=== PATIENT | male | born 1970 | race Caucasian/White ===

== ENCOUNTER → 2020-05-03 08:12 | Outpatient (CLI) | payer BC, SELFPAY ==
[2020-05-03 10:25] LABS: AST(SGOT) 84 U/L (15-37); Alanine Aminotransfer ALT/SGPT 186 U/L (16-61); Alkaline Phosphatase 70 U/L (45-117); Anion Gap 6 (5-15); BUN 13 mg/dL (7-18); BUN/Creat Ratio 14.6 RATIO (10-20); Calcium,Total 9.3 mg/dL (8.5-10.1); Chloride 106 mmol/L (98-107); Cholesterol 209 mg/dL (200); Creatinine, Serum 0.89 mg/dL (0.70-1.30); EST Glomerular Filtration Rate 96 mL/min (>60); Est Glom Filt Rate - Afr Amer 116 mL/min (>60); Globulin 4.1 g/dL (2.2-4.2); Glucose 109 mg/dL (74-106); High Density Lipoprotein 48 mg/dL; Potassium 4.1 mmol/L (3.5-5.1); Protein, Total 8.1 g/dL (6.4-8.2); Sodium Level 138 mmol/L (136-145); Triglycerides 149 mg/dL; Very Low Density Lipoprotein 30 mg/dL (5-40)
== END ==
PROVIDERS: PCP Nurse Practitioner Family; Referring Provider Nurse Practitioner Family; Visit Provider Nurse Practitioner Family
DX: E78.5 Hyperlipidemia, unspecified (principal)
CPT/HCPCS: 36415; 80053; 80061

== ENCOUNTER → 2020-12-28 07:26 | Outpatient (CLI) | payer BC, SELFPAY ==
[2020-12-28 10:52] LABS: ALB/GLOB Ratio 0.9 RATIO (0.9-2.4); AST(SGOT) 29 U/L (15-37); Alanine Aminotransfer ALT/SGPT 67 U/L (16-61); Albumin, Serum 3.9 g/dL (3.2-5.0); Alkaline Phosphatase 67 U/L (45-117); Anion Gap 4 (5-15); BUN 16 mg/dL (7-18); BUN/Creat Ratio 16.8 RATIO (10-20); Calcium,Total 9.9 mg/dL (8.5-10.1); Chloride 104 mmol/L (98-107); Creatinine, Serum 0.95 mg/dL (0.70-1.30); EST Glomerular Filtration Rate 89 mL/min (>60); Est Glom Filt Rate - Afr Amer 107 mL/min (>60); Globulin 4.5 g/dL (2.2-4.2); Glucose 112 mg/dL (74-106); Potassium 3.9 mmol/L (3.5-5.1); Protein, Total 8.4 g/dL (6.4-8.2); Sodium Level 136 mmol/L (136-145)
== END ==
PROVIDERS: PCP Nurse Practitioner Family; Referring Provider Nurse Practitioner Family; Visit Provider Nurse Practitioner Family
DX: R79.89 Other specified abnormal findings of blood chemistry (principal); K76.0 Fatty (change of) liver, not elsewhere classified; R74.8 Abnormal levels of other serum enzymes; Z72.89 Other problems related to lifestyle
CPT/HCPCS: 36415; 80053

== ENCOUNTER → 2021-05-01 07:14 | Outpatient (CLI) | payer BC, SELFPAY ==
[2021-05-01 09:54] LABS: Hematocrit 45.2 % (40-54); Hemoglobin 14.9 g/dL (13.0-16.5); Mean Corpuscular Hgb 29.9 pg (27.0-32.0); Mean Corpuscular Volume 90.6 fL (80-94); Mean Platelet Vol. 9.2 fl (6.2-12.0); Platelet Count 305 K/mm3 (150-450); RBC Distribution Width CV 12.8 % (11.6-14.6); RBC Distribution Width SD 41.9 fl (35.1-43.9); Red Blood Count 4.99 M/mm3 (4.6-6.2); White Blood Count 9.5 K/mm3 (4.4-11.0)
[2021-05-01 10:13] LABS: ALB/GLOB Ratio 0.8 RATIO (0.9-2.4); AST(SGOT) 41 U/L (15-37); Alanine Aminotransfer ALT/SGPT 89 U/L (16-61); Albumin, Serum 3.8 g/dL (3.2-5.0); Alkaline Phosphatase 75 U/L (45-117); Anion Gap 5 (5-15); BUN 15 mg/dL (7-18); BUN/Creat Ratio 16.4 RATIO (10-20); Calcium,Total 9.6 mg/dL (8.5-10.1); Chloride 105 mmol/L (98-107); Cholesterol 166 mg/dL (200); Creatinine, Serum 0.92 mg/dL (0.70-1.30); EST Glomerular Filtration Rate 93 mL/min (>60); Est Glom Filt Rate - Afr Amer 112 mL/min (>60); Globulin 4.5 g/dL (2.2-4.2); Glucose 102 mg/dL (74-106); High Density Lipoprotein 43 mg/dL; PSA,Total - Annual Screen 0.41 ng/mL (0.00-4.00); Protein, Total 8.3 g/dL (6.4-8.2); Sodium Level 138 mmol/L (136-145); Triglycerides 112 mg/dL; Very Low Density Lipoprotein 22 mg/dL (5-40)
== END ==
PROVIDERS: PCP Nurse Practitioner Family; Referring Provider Nurse Practitioner Family; Visit Provider Nurse Practitioner Family
DX: I10 Essential (primary) hypertension (principal); E78.5 Hyperlipidemia, unspecified; R73.01 Impaired fasting glucose; R79.89 Other specified abnormal findings of blood chemistry; Z12.5 Encounter for screening for malignant neoplasm of prostate
CPT/HCPCS: 36415; 80053; 80061; 84153; 85027; G0103

== ENCOUNTER → 2021-11-05 07:26 | Outpatient (CLI) | payer BC, SELFPAY ==
[2021-11-05 10:11] LABS: Hematocrit 41.4 % (40-54); Hemoglobin 13.9 g/dL (13.0-16.5); Mean Corp Hgb Conc 33.6 g/dL (32-36); Mean Corpuscular Hgb 29.9 pg (27.0-32.0); Mean Platelet Vol. 9.9 fl (6.2-12.0); Platelet Count 228 K/mm3 (150-450); RBC Distribution Width CV 13.2 % (11.6-14.6); RBC Distribution Width SD 42.9 fl (35.1-43.9); Red Blood Count 4.65 M/mm3 (4.6-6.2); White Blood Count 8.5 K/mm3 (4.4-11.0)
[2021-11-05 10:39] LABS: ALB/GLOB Ratio 0.9 RATIO (0.9-2.4); AST(SGOT) 36 U/L (15-37); Alanine Aminotransfer ALT/SGPT 93 U/L (16-61); Albumin, Serum 3.9 g/dL (3.2-5.0); Alkaline Phosphatase 70 U/L (45-117); Anion Gap 7 (5-15); BUN 17 mg/dL (7-18); BUN/Creat Ratio 16.8 RATIO (10-20); Calcium,Total 9.7 mg/dL (8.5-10.1); Chloride 105 mmol/L (98-107); Cholesterol 151 mg/dL (200); Creatinine, Serum 1.01 mg/dL (0.70-1.30); EST Glomerular Filtration Rate 83 mL/min (>60); Est Glom Filt Rate - Afr Amer 100 mL/min (>60); Globulin 4.4 g/dL (2.2-4.2); Glucose 113 mg/dL (74-106); High Density Lipoprotein 48 mg/dL; Potassium 4.1 mmol/L (3.5-5.1); Protein, Total 8.3 g/dL (6.4-8.2); Sodium Level 139 mmol/L (136-145); Triglycerides 156 mg/dL; Very Low Density Lipoprotein 31 mg/dL (5-40)
== END ==
PROVIDERS: PCP Nurse Practitioner Family; Referring Provider Nurse Practitioner Family; Visit Provider Nurse Practitioner Family
DX: I10 Essential (primary) hypertension (principal); R79.89 Other specified abnormal findings of blood chemistry; R73.01 Impaired fasting glucose; E78.5 Hyperlipidemia, unspecified
CPT/HCPCS: 36415; 80053; 80061; 85027

== ENCOUNTER → 2022-03-21 | Outpatient (CLI) | payer BC, SELFPAY ==
--- NOTE | 2022-03-21 09:43 | RAD_ITS ---
STUDY: X-RAY - RIGHT SHOULDER REASON FOR EXAM: Male, 52 years old. Pain. TECHNIQUE: 4 view(s) of the shoulder. COMPARISON: None. FINDINGS: Normal glenohumeral articulation. Normal acromioclavicular joint. Normal acromion. Normal humeral head and visualized proximal humerus. The soft tissue structures are unremarkable. Normal visualized pulmonary apex. RAD/Shoulder min 2 Views IMPRESSION: Normal x-ray examination of the shoulder. Electronically Signed: Placido Blair MD at 11:00 EDT ,
--- NOTE | 2022-03-21 09:44 | RAD_ITS ---
STUDY: X-RAY - LUMBAR SPINE REASON FOR EXAM: Male, 52 years old. chronic progressive back pain PAIN TECHNIQUE: XR Spine Lumbar Min 4 Views COMPARISON: None FINDINGS: There is straightening of the normal lumbar lordosis. There is no substantial scoliosis. There is a normal alignment of the vertebrae. There is multilevel endplate spondylosis of the lumbar vertebrae. Normal disc space heights. There is atherosclerotic calcification of the abdominal aorta without a demonstrated aneurysm. RAD/L/S Spine Min 4 Views IMPRESSION: Degenerative changes of the spine, as detailed above. Electronically Signed: George Handy MD at 14:22 EDT ,
== END | disposition home or self-care (01) ==
LOC: MTRAD 09:41
PROVIDERS: PCP Nurse Practitioner Family; Referring Provider Nurse Practitioner Family; Visit Provider Nurse Practitioner Family
DX: M54.50 Low back pain, unspecified (principal); G89.29 Other chronic pain; M25.511 Pain in right shoulder
CPT/HCPCS: 72110; 73030

== ENCOUNTER → 2022-05-14 | Outpatient (CLI) | payer BC, SELFPAY ==
[2022-05-14 10:10] LABS: Hematocrit 43.1 % (40-54); Hemoglobin 14.6 g/dL (13.0-16.5); Mean Corp Hgb Conc 33.9 g/dL (32-36); Mean Corpuscular Hgb 30.8 pg (27.0-32.0); Mean Corpuscular Volume 90.9 fL (80-94); Mean Platelet Vol. 10.3 fl (6.2-12.0); Platelet Count 220 K/mm3 (150-450); RBC Distribution Width CV 12.6 % (11.6-14.6); Red Blood Count 4.74 M/mm3 (4.6-6.2); White Blood Count 7.3 K/mm3 (4.4-11.0)
[2022-05-14 10:27] LABS: Hemoglobin A1c 5.9 % (3.8-5.6)
[2022-05-14 10:45] LABS: ALB/GLOB Ratio 1.1 RATIO (0.9-2.4); AST(SGOT) 76 U/L (15-37); Alanine Aminotransfer ALT/SGPT 172 U/L (16-61); Alkaline Phosphatase 63 U/L (45-117); Anion Gap 4 (5-15); BUN 22 mg/dL (7-18); BUN/Creat Ratio 23.5 RATIO (10-20); Calcium,Total 9.2 mg/dL (8.5-10.1); Chloride 107 mmol/L (98-107); Cholesterol 163 mg/dL (200); Creatinine, Serum 0.94 mg/dL (0.70-1.30); EST Glomerular Filtration Rate 90 mL/min (>60); Est Glom Filt Rate - Afr Amer 109 mL/min (>60); Globulin 3.8 g/dL (2.2-4.2); Glucose 109 mg/dL (74-106); High Density Lipoprotein 46 mg/dL; PSA,Total - Annual Screen 0.43 ng/mL (0.00-4.00); Potassium 4.4 mmol/L (3.5-5.1); Protein, Total 7.8 g/dL (6.4-8.2); Sodium Level 139 mmol/L (136-145); Triglycerides 175 mg/dL; Very Low Density Lipoprotein 35 mg/dL (5-40)
== END | disposition home or self-care (01) ==
LOC: MTLAB 08:14
PROVIDERS: PCP Nurse Practitioner Family; Referring Provider Nurse Practitioner Family; Visit Provider Nurse Practitioner Family
DX: R73.01 Impaired fasting glucose (principal); I10 Essential (primary) hypertension; E78.5 Hyperlipidemia, unspecified; I25.10 Atherosclerotic heart disease of native coronary artery without angina pectoris; R79.89 Other specified abnormal findings of blood chemistry; Z12.5 Encounter for screening for malignant neoplasm of prostate
CPT/HCPCS: 36415; 80053; 80061; 83036; 84153; 85027; G0103

== ENCOUNTER → 2023-01-02 | Outpatient (CLI) | payer BC, SELFPAY ==
[2023-01-02 10:09] LABS: AST(SGOT) 64 U/L (15-37); Alanine Aminotransfer ALT/SGPT 116 U/L (16-61); Albumin, Serum 3.9 g/dL (3.2-5.0); Alkaline Phosphatase 46 U/L (45-117); Anion Gap 7 (5-15); BUN 20 mg/dL (7-18); Calcium,Total 9.4 mg/dL (8.5-10.1); Chloride 104 mmol/L (98-107); Cholesterol 148 mg/dL (200); Creatinine, Serum 1.05 mg/dL (0.70-1.30); EST Glomerular Filtration Rate 79 mL/min (>60); Est Glom Filt Rate - Afr Amer 95 mL/min (>60); Glucose 120 mg/dL (74-106); High Density Lipoprotein 46 mg/dL; Potassium 4.2 mmol/L (3.5-5.1); Protein, Total 7.9 g/dL (6.4-8.2); Sodium Level 139 mmol/L (136-145); Triglycerides 119 mg/dL; Very Low Density Lipoprotein 24 mg/dL (5-40)
== END | disposition home or self-care (01) ==
LOC: MTLAB 07:35
PROVIDERS: PCP Nurse Practitioner Family; Referring Provider Nurse Practitioner Family; Visit Provider Nurse Practitioner Family
DX: I10 Essential (primary) hypertension (principal); R73.01 Impaired fasting glucose; E78.5 Hyperlipidemia, unspecified; R79.89 Other specified abnormal findings of blood chemistry; I25.10 Atherosclerotic heart disease of native coronary artery without angina pectoris
CPT/HCPCS: 36415; 80053; 80061

== ENCOUNTER → 2023-07-14 | Outpatient (CLI) | payer BC, SELFPAY ==
[2023-07-14 10:09] LABS: Hematocrit 43.8 % (40-54); Hemoglobin 14.9 g/dL (13.0-16.5); Mean Corpuscular Hgb 31.2 pg (27.0-32.0); Mean Corpuscular Volume 91.6 fL (80-94); Mean Platelet Vol. 9.8 fl (6.2-12.0); Platelet Count 216 K/mm3 (150-450); RBC Distribution Width CV 12.6 % (11.6-14.6); RBC Distribution Width SD 42.3 fl (35.1-43.9); Red Blood Count 4.78 M/mm3 (4.6-6.2); White Blood Count 6.9 K/mm3 (4.4-11.0)
[2023-07-14 10:25] LABS: AST(SGOT) 83 U/L (15-37); Alanine Aminotransfer ALT/SGPT 201 U/L (16-61); Albumin, Serum 3.9 g/dL (3.2-5.0); Alkaline Phosphatase 59 U/L (45-117); Anion Gap 8 (5-15); BUN 18 mg/dL (7-18); BUN/Creat Ratio 17.6 RATIO (10-20); Calcium,Total 9.2 mg/dL (8.5-10.1); Chloride 104 mmol/L (98-107); Cholesterol 185 mg/dL (200); Creatinine, Serum 1.02 mg/dL (0.70-1.30); EST Glomerular Filtration Rate 81 mL/min (>60); Est Glom Filt Rate - Afr Amer 98 mL/min (>60); Globulin 4.1 g/dL (2.2-4.2); Glucose 120 mg/dL (74-106); High Density Lipoprotein 54 mg/dL; PSA,Total - Annual Screen 0.42 ng/mL (0.00-4.00); Sodium Level 139 mmol/L (136-145); Triglycerides 156 mg/dL; Very Low Density Lipoprotein 31 mg/dL (5-40)
[2023-07-14 10:34] LABS: Hemoglobin A1c 5.8 % (3.8-5.6)
== END | disposition home or self-care (01) ==
LOC: MTLAB 07:36
PROVIDERS: PCP Nurse Practitioner Family; Referring Provider Nurse Practitioner Family; Visit Provider Nurse Practitioner Family
DX: R73.01 Impaired fasting glucose (principal); E78.5 Hyperlipidemia, unspecified; R79.89 Other specified abnormal findings of blood chemistry; I25.10 Atherosclerotic heart disease of native coronary artery without angina pectoris; K76.0 Fatty (change of) liver, not elsewhere classified; Z12.5 Encounter for screening for malignant neoplasm of prostate
CPT/HCPCS: 36415; 80053; 80061; 83036; 84153; 85027; G0103

== ENCOUNTER → 2024-01-22 | Outpatient (CLI) | payer BC, SELFPAY ==
--- OUTSIDE RECORDS SUMMARY | 2024-01-22 07:49 | XMS RPT_ITS | CCD ---
Author Name Unknown Address [address] [place] [address] Organization [facility] Care Team Providers Care Obiee Lead Developer Name Role Phone Unavailable Primary Care Provider UnavailLOS Shields Attending Unavailable LOS LUJAN Referring Unavailable LOS LUJAN Attending Unavailable LOS LUJAN Referring Unavailable Unavailable Primary Care Provider Kim machado Allergies Allergy Classification Reported Allergen(s) Allergy Type Date of Onset Reaction(s) Facility (6 sources) Morphine; Translations: [MORPHINE] Drug Allergy 10-30-2020 Unknown [facility] Medications Completed/Discontinued Medications Medication Drug Class(es) Dates Sig (Normalized) Sig (Original) apixaban 5 mg oral tablet (5 sources) Factor Xa Inhibitor take 1 tablet by mouth twice daily apixaban (ELIQUIS) 5 mg tab(s) Take 5 mg by mouth twice daily. 0 Active Problems Active Problems Problem Classification Problem Date Documented Da te Episodic/Chronic Disorders of lipid metabolism (12 sources) Hyperlipidemia; Translations: [Hyperlipidemia, unspecified] Onset: 08-22-2021 08-22-2021 Chronic Essential hypertension (7 sources) Benign essential hypertension; Translations: [Essential (primary) hypertension] Onset: 10-30-2020 08-22-2021 Chronic Nonspecific chest pain (3 sources) Chest pain; Translations: [Chest pain, unspecified] Onset: 01-29-2023 Episodic Substance-related disorders (10 sources) Nicotine dependence; Translations: [Nicotine dependence, cigarettes, uncomplicated] Onset: 10-30-2020 10-30-2020 Chronic Past or Other Problems Problem Classification Problem Date Documented Da te Episodic/Chronic Coronary atherosclerosis and other heart disease (1 source) Presence of aortocoronary bypass graft; Translations: [Hx of CABG] Onset: 06-08-2021 Episodic Other aftercare (5 sources) Post-discharge follow-up; Translations: [Encounter for follow-up examination after completed treatment for conditions other than malignant neoplasm] Onset: 10-30-2020 10-30-2020 Episodic Residual codes; unclassified (11 sources) Past history of procedure; Translations: [Personal history of other medical treatment] Onset: 10-12-2020 10-30-2020 Episodic Residual codes; unclassified (6 sources) History of cardiac catheterization; Translations: [Other specified postprocedural states] Onset: 05-20-2021 06-08-2021 Episodic Residual codes; unclassified (1 source) Personal history of other medical treatment; Translations: [History of cardiovascular stress test] Onset: 10-30-2020 Episodic Residual codes; unclassified (1 source) Other specified postprocedural states; Translations: [History of left heart catheterization] Onset: 06-08-2021 Episodic Screening and history of mental health and substance abuse codes (7 sources) Ex-smoker; Translations: [Personal history of nicotine dependence] Onset: 08-22-2021 08-22-2021 Episodic Results Test Name Value Interpretation Reference Range Facil ity Vital Signs Date Time Vital Sign Value Performing Clinician Faci lity 01-29-2023 15:48-0500 Body height 180.3 cm Face to Face Live Work Phone: [facility] 01-29-2023 15:48-0500 Body weight 84.37 kg Face to Face Live Work Phone: [facility] 01-29-2023 15:48-0500 Diastolic blood pressure 82 mm[Hg] Face to Face Live Work Phone: [facility] 01-29-2023 15:48-0500 Heart rate 77 /min Face to Face Live Work Phone: [facility] 01-29-2023 15:48-0500 Systolic blood pressure 138 mm[Hg] Face to Face Live Work Phone: [facility] 05-22-2021 07:36-0400 SaO2% (BldA) [Mass fraction] 97 % [facility] Encounters Encounter Date Encounter Type Care Provider Facility Start: 02-24-2023 Telephone encounter Elena russo APRN.PANEL FITTER Work Phone: [facility] Procedures Date Procedure Procedure Detail Performing Clinician Start: 02-24-2023 NM SHIRA SPECT MULTI ([place]) Los Lujan DO Work Phone: Start: 02-24-2023 NUCLEAR STRESS TEST (WT<440#) ([place]) Los Lujan DO Work Phone: Start: 05-21-2021 History of coronary artery bypass grafting Hx of CABG Los Lujan DO Work Phone: Start: 05-20-2021 Antibody screen Plan of Treatment Date Care Activity Detail Author Start: 10-12-2025 Lipid 1996 panel - Serum or Plasma Lipid Screening [facility] Start: 10-12-2025 LIPID SCREEN LIPID SCREEN [facility] Start: 06-18-2024 DIABETES SCREEN DIABETES SCREEN [facility] Start: 06-18-2024 Diabetes Screening Diabetes Screening [facility] Start: 10-12-2023 DIABETES SCREEN DIABETES SCREEN [facility] Start: 07-24-2023 Influenza vaccination [facility] Start: 11-23-2022 DEPRESSION ASSESSMENT DEPRESSION ASSESSMENT [facility] Start: 07-24-2022 Influenza vaccination [facility] Start: 09-18-2021 COVID-19 VACCINE (3 - Booster for Pfizer series) COVID-19 VACCINE (3 - Booster for Pfizer series) [facility] Start: 06-13-2021 COVID-19 VACCINE (3 - Booster for Pfizer series) COVID-19 VACCINE (3 - Booster for Pfizer series) [facility] Start: 06-13-2021 Covid-19 Vaccine (3 - Pfizer series) Covid-19 Vaccine (3 - Pfizer series) [facility] Start: 02-23-2020 SHINGRIX VACCINE (1 of 2) SHINGRIX VACCINE (1 of 2) [facility] Start: 2015 COLOGUARD (FIT-DNA) COLOGUARD (FIT-DNA) [facility] Start: 2015 Colonoscopy COLONOSCOPY [facility] Start: 2015 COLORECTAL CANCER SCREENING COLORECTAL CANCER SCREENING [facility] Start: [address] COLONOGRAPHY [facility] Start: 2015 FECAL OCCULT BLOOD FECAL OCCULT BLOOD [facility] Start: 2015 SIGMOIDOSCOPY SIGMOIDOSCOPY [facility] Start: 1989 Urine microalbumin profile [facility] Start: 02-23-1988 ANNUAL PCP TEAM CHRONIC DISEASE VISIT ANNUAL PCP TEAM CHRONIC DISEASE VISIT [facility] Start: 02-23-1988 BP CONTROLLED (<130/80) BP CONTROLLED (<130/80) [facility] Start: 02-23-1988 HEPATITIS C SCREENING HEPATITIS C SCREENING [facility] Start: 02-23-1988 HIV SCREENING HIV SCREENING [facility] Start: 1982 Adult depression screening assessment DEPRESSION SCREENING [facility] Start: 02-23-1976 PNEUMOCOCCAL (1 - PCV) PNEUMOCOCCAL (1 - PCV) [facility] Start: 02-23-1976 Pneumococcal vaccination Pneumococcal Vaccine (1 - PCV) [facility] Start: 1970 HEPATITIS B (1 of 3 - 3-dose series) HEPATITIS B (1 of 3 - 3-dose series) [facility] Start: 1970 Hepatitis B Vaccine (1 of 3 - 3-dose series) Hepatitis B Vaccine (1 of 3 - 3-dose series) [facility] ECG COMPLETE ECG COMPLETE ECG Routine Essential hypertension, benign 01/29/2023 3:46 PM EST [facility] Work Phone: End: 02-28-2024 NM CARDIAC PERF STRESS/EXERCISE NM CARDIAC PERF STRESS/EXERCISE Radiology Routine Chest pain, unspecified type 1 Occurrences starting 02/01/2023 until 02/28/2024 [facility] Work Phone: Payers Date Payer Category Payer Unknown [employer] P[employer] OOS [id number] 2020-Present [phone] [address] [place] [address] PPO [id number] 2020 Unknown [employer] PPO OOS [id number] 2020-Present [phone] [address] [place] [address] PPO [id number] 2020 Unknown [id number] Unknown [id number] Social History Date Type Detail Facility Start: [facility]12[facility]2021 [facility] End: 11-23-2020 History of tobacco use Current smoker [facility] Start: 06-12-2021 End: 01-29-2023 Cigarettes smoked current (pack per day) - Reported 1 [facility] Start: 06-12-2021 End: 01-29-2023 Tobacco use and exposure Smokeless tobacco non-user [facility] Start: 01-23-2022 End: 02-24-2023 Alcohol intake Current drinker of alcohol (finding) [facility] Start: 05-14-2021 History SDOH Alcohol Comment once or twice weekly [facility] Start: 1970 Sex Assigned At Not on file C [facility] Start: 01-29-2023 Tobacco smoking stat [facility] Occasional tobacco smoker [facility] Start: 01-29-2023 End: 02-24-2023 Tobacco use panel [facility] National Score (1-10 0), lower number is lower risk 56 [facility] Clinical Notes 10-30-2020 to 02-24-2023 Telephone Encounter - Sima Gasca MA - 02/24/2023 3:33 PM EDTTelephone Encounter - Meggan Avelar - 02/24/2023 2:37 PM EDTTelephone Encounter - Alice Lujan - 02/03/2023 11:07 AM EDT Note Date & Type Note Facility 02-24-2023 Miscellaneous Notes Patient was called and given the message of the provider. Patient voiced understanding of the results. ----- Message from Elena Spaulding APRN.PANEL FITTER sent at 02/24/2023 11:16 AM EDT ----- Please let patient know stress test was normal. No signs of damage. documented in this encounter [facility] 02-03-2023 Miscellaneous Notes Scheduled stress at [facility] 02/24 at 630 am Patient advised and Order faxed Per LENNIE, Approved for [facility]; Auth # [id number] 02/02/2023-03/04/2023 Donell Dennis Prior authorization request for stress test to be done at [facility] in a month is being submitted for review. Please notify clerical staff when ready. Ebony Marie RN documented in this encounter [facility] 01-29-2023 Note HNO ID: [id number] Author: Los Lujan DO Service: ? Author Type: Physician Type: Progress Notes Filed: 02/01/2023 4:27 PM Note Text: Referring Provider: Los Lujan, Date: January 29, 2023 Chief Complaint: Established Patient Follow-Up (Yearly follow up) HISTORY OF PRESENT ILLNESS: Sakshi Kelley is a 52 year old male who presents for Established Patient Follow-Up (Yearly follow up). Patient had bypassed 3 years ago. Now complaining heaviness with exertion. He is concerned his bypass graft not working same type of discomfort he had prior to his bypass surgery ALLERGIES Allergen Reactions Morphine Unknown PAST MEDICAL HISTORY: PAST MEDICAL HISTORY Diagnosis Date History of cardiovascular stress test 10/12/2020 Normal myocardial perfusion study. EF 65% History of exercise stress test 05/13/2021 Patient completed 7 METS, [facility] 2. EKG highly suggestive of ischemia ([address] depression, downsloping depression noted in the inferior lateral leads). This is associated 9/10 chest pain with exertion that disappeared 5 minutes into recovery. Short bursts of SVT appreciated. Occasional PVC's. The PVC's did not disappear with exercise. History of left heart catheterization 05/20/2021 80% distal LM, 99% proximal LAD, normal Cx, 100% RCA being filled by L to R collaterals. Normal LV function Hx of CABG 05/21/2021 CABG x3 using PARSONS to mid LAD, reverse SVG to OM 2, reverse SVG to high take off posterior descending. Done by Dr. Davila @ [facility] Hyperlipidemia Hypertension No past surgical history on file. FAMILY HISTORY Problem Relation Age of Onset other (Other CABG) Father other (CABG) Paternal Grandfather SOCIAL HISTORY: Tobacco Use: 1 packs/day Quit 11/23/2020. Alcohol Use: Yes (once or twice weekly ) Drug Use: Not Currently Employer And Job Title: None on file Years Of Education Completed: Not specified Marital Status: MEDICATIONS: Current Outpatient Medications Medication Sig metoprolol tartrate, short acting, (LOPRESSOR) 50 mg tablet Take 1 tablet by mouth once daily. ramipril (ALTACE) 10 mg capsule Take 10 mg by mouth once daily. rosuvastatin (CRESTOR) 20 mg tablet Take 20 mg by mouth once daily. aspirin (ASPIR-81 ORAL) Take by mouth once daily. meloxicam (MOBIC) 15 mg tablet Take 15 mg by mouth once daily. apixaban (ELIQUIS) 5 mg tab(s) Take 5 mg by mouth twice daily. (Patient not taking: Reported on 01/23/2022 ) benzonatate (TESSALON PERLE) 100 mg capsule TAKE 1 CAPSULE BY MOUTH THREE TIMES A DAY NEEDED FOR COUGH (Patient not taking: Reported on 01/23/2022) clopidogrel (PLAVIX) 75 mg tablet TAKE 1 TABLET BY MOUTH EVERYDAY AT BEDTIME (Patient not taking: Reported on 01/23/2022) docusate sodium (COLACE) 100 mg capsule Take 100 mg by mouth twice daily. (Patient not taking: Reported on 01/23/2022 ) magnesium oxide (MAG-OX) 400 mg (241.3 mg magnesium) tablet Take 1 tablet by mouth once daily. (Patient not taking: Reported on 01/23/2022 ) atorvastatin (LIPITOR) 40 mg tablet Take 1 tablet by mouth once daily. (Patient not taking: Reported on 01/29/2023) No current facility-administered medications for this visit. I have personally reviewed the patients past medical history including social, family, surgical, diagnostics, and medications. REVIEW OF SYSTEMS: Review of Systems Constitutional: Positive for fatigue. Negative for chills. Respiratory: Positive for shortness of breath. Negative for chest tightness. Cardiovascular: Negative for chest pain, palpitations and leg swelling. Neurological: Positive for light-headedness. Negative for dizziness, syncope and weakness. Hematological: Does not bruise/bleed easily. Psychiatric/Behavioral: Negative for confusion and hallucinations. Vitals: BP 138/82 (BP Site: Left Arm, BP Position: Sitting) Pulse 77 Ht 180.3 cm (5' 11 ) Wt 84.4 kg (186 lb) BMI 25.94 kg/m? PHYSICAL EXAMINATION: BP 138/82 (BP Site: Left Arm, BP Position: Sitting) Pulse 77 Ht 180.3 cm (5' 11 ) Wt 84.4 kg (186 lb) BMI 25.94 kg/m? Last 3 Encounter BP Readings: Date: BP: 01/23/2022 132/64 06/12/2021 126/82 05/14/2021 122/70 Last 3 Encounter Pulse Readings: Date: Pulse: 01/23/2022 72 06/12/2021 71 05/14/2021 80 Last 3 Encounter Wt Readings: Date: Wt: 01/23/2022 81.6 kg (180 lb) 06/12/2021 77.6 kg (171 lb) 05/14/2021 79.8 kg (176 lb) Physical Exam Vitals reviewed. Constitutional: General: He is not in acute distress. Cardiovascular: Rate and Rhythm: Normal rate and regular rhythm. Pulses: Carotid pulses are 2+ on the right side and 2+ on the left side. Radial pulses are 2+ on the right side and 2+ on the left side. Femoral pulses are 2+ on the right side and 2+ on the left side. Popliteal pulses are 2+ on the right side and 2+ on the left side. Dorsalis pedis pulses are 2+ on the right side and 2+ on the left side. Posterior tibial pulses are 2+ on t (more content not included)... [facility] 01-29-2023 History of Presen t illness Narrative Referring Provider: Los Lujan DO Date: January 29, 2023 Chief Complaint: Established Patient Follow-Up (Yearly follow up) HISTORY OF PRESENT ILLNESS: Sakshi Kelley is a 52 year old male who presents for Established Patient Follow-Up (Yearly follow up). Patient had bypassed 3 years ago. Now complaining heaviness with exertion. He is concerned his bypass graft not working same type of discomfort he had prior to his bypass surgery ALLERGIES Allergen Reactions Morphine Unknown PAST MEDICAL HISTORY: PAST MEDICAL HISTORY Diagnosis Date History of cardiovascular stress test 10/12/2020 Normal myocardial perfusion study. EF 65% History of exercise stress test 05/13/2021 Patient completed 7 METS, [facility] 2. EKG highly suggestive of ischemia ([address] depression, downsloping depression noted in the inferior lateral leads). This is associated 9/10 chest pain with exertion that disappeared 5 minutes into recovery. Short bursts of SVT appreciated. Occasional PVC's. The PVC's did not disappear with exercise. History of left heart catheterization 05/20/2021 80% distal LM, 99% proximal LAD, normal Cx, 100% RCA being filled by L to R collaterals. Normal LV function Hx of CABG 05/21/2021 CABG x3 using PARSONS to mid LAD, reverse SVG to OM 2, reverse SVG to high take off posterior descending. Done by Dr. Davila @ [facility] Hyperlipidemia Hypertension No past surgical history on file. FAMILY HISTORY Problem Relation Age of Onset other (Other CABG) Father other (CABG) Paternal Grandfather SOCIAL HISTORY: Tobacco Use: 1 packs/day Quit 11/23/2020. Alcohol Use: Yes (once or twice weekly ) Drug Use: Not Currently Employer And Job Title: None on file Years Of Education Completed: Not specified Marital Status: MEDICATIONS: Current Outpatient Medications Medication Sig metoprolol tartrate, short acting, (LOPRESSOR) 50 mg tablet Take 1 tablet by mouth once daily. ramipril (ALTACE) 10 mg capsule Take 10 mg by mouth once daily. rosuvastatin (CRESTOR) 20 mg tablet Take 20 mg by mouth once daily. aspirin (ASPIR-81 ORAL) Take by mouth once daily. meloxicam (MOBIC) 15 mg tablet Take 15 mg by mouth once daily. apixaban (ELIQUIS) 5 mg tab(s) Take 5 mg by mouth twice daily. (Patient not taking: Reported on 01/23/2022 ) benzonatate (TESSALON PERLE) 100 mg capsule TAKE 1 CAPSULE BY MOUTH THREE TIMES A DAY NEEDED FOR COUGH (Patient not taking: Reported on 01/23/2022) clopidogrel (PLAVIX) 75 mg tablet TAKE 1 TABLET BY MOUTH EVERYDAY AT BEDTIME (Patient not taking: Reported on 01/23/2022) docusate sodium (COLACE) 100 mg capsule Take 100 mg by mouth twice daily. (Patient not taking: Reported on 01/23/2022 ) magnesium oxide (MAG-OX) 400 mg (241.3 mg magnesium) tablet Take 1 tablet by mouth once daily. (Patient not taking: Reported on 01/23/2022 ) atorvastatin (LIPITOR) 40 mg tablet Take 1 tablet by mouth once daily. (Patient not taking: Reported on 01/29/2023) No current facility-administered medications for this visit. I have personally reviewed the patients past medical history including social, family, surgical, diagnostics, and medications. REVIEW OF SYSTEMS: Review of Systems Constitutional: Positive for fatigue. Negative for chills. Respiratory: Positive for shortness of breath. Negative for chest tightness. Cardiovascular: Negative for chest pain, palpitations and leg swelling. Neurological: Positive for light-headedness. Negative for dizziness, syncope and weakness. Hematological: Does not bruise/bleed easily. Psychiatric/Behavioral: Negative for confusion and hallucinations. Vitals: BP 138/82 (BP Site: Left Arm, BP Position: Sitting) Pulse 77 Ht 180.3 cm (5' 11 ) Wt 84.4 kg (186 lb) BMI 25.94 kg/m PHYSICAL EXAMINATION: BP 138/82 (BP Site: Left Arm, BP Position: Sitting) Pulse 77 Ht 180.3 cm (5' 11 ) Wt 84.4 kg (186 lb) BMI 25.94 kg/m Last 3 Encounter BP Readings: Date: BP: 01/23/2022 132/64 06/12/2021 126/82 05/14/2021 122/70 Last 3 Encounter Pulse Readings: Date: Pulse: 01/23/2022 72 06/12/2021 71 05/14/2021 80 Last 3 Encounter Wt Readings: Date: Wt: 01/23/2022 81.6 kg (180 lb) 06/12/2021 77.6 kg (171 lb) 05/14/2021 79.8 kg (176 lb) Physical Exam Vitals reviewed. Constitutional: General: He is not in acute distress. Cardiovascular: Rate and Rhythm: Normal rate and regular rhythm. Pulses: Carotid pulses are 2+ on the right side and 2+ on the left side. Radial pulses are 2+ on the right side and 2+ on the left side. Femoral pulses are 2+ on the right side and 2+ on the left side. Popliteal pulses are 2+ on the right side and 2+ on the left side. Dorsalis pedis pulses are 2+ on the right side and 2+ on the left side. Posterior tibial pulses are 2+ on the right side and 2+ on the left side. Heart sounds: Murmur heard. Systolic murmur is present with a grade of 2/6. Comments: PMI not displaced. 2nd heart sound loud. Pulmonary: Effort: Pulmonary effort is normal. Breath sounds: Normal breath sounds. Abdominal: General: Abdomen is flat. Bowel sounds are normal. Palpations: Abdomen is soft. Tenderness: There is no abdominal tenderness. Musculoskeletal: Right lower leg: No edema. Left lower leg: No edema. Skin: General: Skin is warm. Findings: No rash or wound. Neurological: Mental Status: He is alert and oriented to person, place, and time. Coordination: Coordination is intact. LABS: Glucose (MG/DL) Date Value 06/18/2021 124 Potassium (MMOL/L) Date Value 06/18/2021 4.1 Sodium (MMOL/L) Date Value 06/18/2021 140 Chloride (MMOL/L) Date Value 06/18/2021 108 CO2 (MMOL/L) Date Value 06/18/2021 27.0 Creatinine (MG/DL) Date Value 06/18/2021 0.83 BUN (MG/DL) Date Value 06/18/2021 16 Anion Gap (MMOL/L) Date Value 06/18/2021 5 Calcium (MG/DL) Date Value 06/18/2021 9.6 Protein, Total (GM/DL) Date Value 06/18/2021 7.5 Albumin (GM/DL) Date Value 06/18/2021 3.6 Bilirubin, Total (MG/DL) Date Value 06/18/2021 0.20 Alkaline Phosphatase (U/L) Date Value 06/18/2021 103 AST (U/L) Date Value 06/18/2021 37 ALT (U/L) Date Value 06/18/2021 52 Hemoglobin (G/DL) Date Value 06/18/2021 12.4 Hematocrit (%) Date Value 06/18/2021 37.6 WBC (K/CUMM) Date Value 06/18/2021 7.4 Cholesterol, Total (mg/dL) Date Value 10/12/2020 250 HDL Cholesterol (mg/dL) Date Value 10/12/2020 41 LDL (mg/dL) Date Value 10/12/2020 166 Triglyceride (mg/dL) Date Value 10/12/2020 217 EKG: DIAGNOSTIC TEST RESULTS: Recent Results (from the past 24 hour(s)) ECG COMPLETE Collection Time: 01/29/23 3:46 PM Result Value Ref Range Ventricular Rate 77 BPM Atrial Rate 77 BPM P-R Interval 178 ms QRS Duration 88 ms QT Interval 370 ms QTC Calculation (Bazett) 418 ms Calculated P [place] 43 degrees Calculated R [place] 74 degrees Calculated T [place] 49 degrees Narrative NAME : SAKSHI KELLEY PID : [id number] : 1970 Gender : Male Race : ORD : [id number] Procedure Date : Jan 29 2023 15:46:43 Edit Date : Jan 29 2023 15:46:22 Diagnosis: NORMAL SINUS RHYTHM NORMAL ECG NO PREVIOUS ECGS AVAILABLE Test Reason : Location : [facility] : [facility] Overread By : , Edited By : , Referred By : LOS LUJAN Acquired by : , Impression NORMAL SINUS RHYTHM NORMAL ECG NO PREVIOUS ECGS AVAILABLE ASSESSMENT/PLAN: 1. Essential hypertension, benign - ICD9: 401.1, ICD10: I10 (primary diagnosis) Patient's blood pressure in the office today was recorded as 138/82. Target systolic BP 140 or less and diastolic BP 90 or less. Continue current medications. - Discontinue Metoprolol secondary to overwhelming fatigue and tiredness - Recommended regular aerobic exercise. - Recommend home blood pressure monitoring, to bring results in on next visit - Goal of BP <130/80 - ECG COMPLETE 2. Hyperlipidemia LDL goal <70 - ICD9: 272.4, ICD10: E78.5 Patient is currently taking Rosuvastatin 20 mg every day. Patients last BW was 10/12/2020 and the LDL was 166. Lipids are managed by PCP. - Continue current medication. 3 Hx of CABG - ICD9: V45.81, ICD10: Z95.1 Patient had a CABG 05/21/2021: CABG x3 using PARSONS to mid LAD, reverse SVG to OM 2, reverse SVG to high take off posterior descending. Done by Dr. Davila @ [facility] 4. History of cardiovascular stress test - ICD9: V15.89, ICD10: Z92.89 Stress test done 05/13/2021 showing Patient completed 7 METS, [facility] 2. EKG highly suggestive of ischemia ([address] depression, downsloping depression noted in the inferior lateral leads). This is associated 9/10 chest pain with exertion that disappeared 5 minutes into recovery. Short bursts of SVT appreciated. Occasional PVC's. The PVC's did not disappear with exercise. 5 History of left heart catheterization - ICD9: V15.1, ICD10: Z98.890 Heart cath done 05/20/2021: 80% distal LM, 99% proximal LAD, normal Cx, 100% RCA being filled by L to R collaterals. Normal LV function He is frustrated he had a bypass surgery now he is having chest discomfort again He is concerned his bypass graft not working 6 Former smoker - ICD9: V15.82, ICD10: Z87.891 Patient was a former smoker but stated he does smoke some on the weekends 7. Chest pain, ICD-10- R07.9 Discontinue the Metoprolol. Will order a stress test to be done in a month. I, Ebony Marie RN , scribing for Dr. Los Lujan, was present in the room during the examination Follow up in: 1 year follow up Prior to entering the room, I reviewed the last progress note including the diagnosis and plan of action. When available, I then reviewed the last heart catheterization, stress test, echocardiogram and EKG. I proceeded to review the medial therapy and any side effects the patient may have had in the past. I was able to look at the last several EKGs. A new EKG was performed today and an interetation was performed. I reviewed its interpretation with the family and compared it to the previous EKGs that we have in the medical records. Changes were described to the patient. In a pictorial format; I described the IL and QRS intervals. This was to show the effects of antiarrhythmic therapy on the electrical system. I was able to look at the past several EKG's. A new EKG was performed today and interpretation was noted. I reviewed this interpretation with the patient, and the family when available, and compared it to the previous EKG's that we have in the medical record. Since my office visit was carried out with a scribe, while in the exam room I was able to devote one hundred percent of my time in pnjr-[id number] conversation with the patient. I answered all the questions and explained the diagnosis of overwhelming fatigue caused by beta-blockade. Now having chest pressure tightness fullness. Greater that 51% of my time was spent with [id number] conversation with the patient. I have discussed the recommended treatment, alternative therapies and other options in detail. I've discussed the best benefit and side effects of these recommended treatments. I've attempted to answer all the questions to the patient's satisfaction and understanding. With approval, we would recommend an pursue the current therapy such as recommend stress test. After leaving the exam room, I went back into the patient's chart and coordinated care with my nurse ordering the proper testing and medicinal changes. Letter was performed with voice recognition algorithms and sent to the referring team. The chart was completed. Including the pre-exam, exam and post-exam, the total time spent in the patient's management was greater than 15 minutes I, Dr. Los Lujan, have reviewed and agree with the information in the medical record. Los Lujan DO documented in this encounter [facility] 03-28-2022 Miscellaneous Notes Patient calls requesting refill: Pending Prescriptions Disp Refills METOPROLOL TARTRATE 50 MG TABLET 90 tablet 3 Sig: Take 1 tablet by mouth once daily. CAITLIN: No Date of last visit:01/23/22 Phone #: [phone] (home) [phone] (work) The patients preferred pharmacy has been captured for this encounter? yes Pharmacy left voice mail message requesting refill: metoprolol tartrate, short acting, (LOPRESSOR) 50 mg tablet-Take 50 mg by mouth once daily 90 days [facility] Date of last visit:01/23/2022 w/Dr Lujan in [place] Phone #: [phone] (home) [phone] (work) The patients preferred pharmacy has been captured for this encounter? yes documented in this encounter [facility] 05-24-2021 Note [facility] 05-23-2021 Note Occupational Therapy Inpatient Evaluation Medical Diagnosis: ABNORMAL STRESS TEST S/P HEART CATH ON 05/20/21 S/P CABG X3 W/BULLAE RESECTION ON 05/21/21 OCCUPATIONAL PROFILE AND HISTORY Therapy Diagnosis: Rank Code Description 1 Z95.1 Presence of aortocoronary bypass graft 2 Z74.1 Need for assistance with personal care Demographics: Age: 51Y Gender: Male Primary Language: Czech Preferred Language: Czech Referring Service/Team: Cardiology Past Medical History: Past Medical History Summary: HTN, HLD, Spontaneous pneumothorax Past Surgical History Summary: Left lung surgery due to spontaneous pneumothorax 1992 per charting History of Present Illness: Date of Surgery: 05/20/21 Additional Information: Mr Kelley is a 51 year old male with significant past medical history of HTN, HLD, and spontaneous pneumothorax of left lung that required surgical intervention. He presented today for heart catheterization due to on going chest pain, despite initially having a normal stress test. Repeat exercise stress test did not show ischemic changes. Heart cath showed significant CAD; therefore, CTS was consulted for evaluation of surgical intervention. obtained from medical chart Date of Admission: 05/20/2021 7:00:00 AM Rehabilitation Precautions/Restrictions: fall risk, maintain 02>92%, cardiac/sternal precautions Imaging/Testing Results from Chart: RADIOLOGY - PORTABLE CHEST 05/20 1100 Report Impression - Status: SIGNED Entered: 05/20/2021 1136 IMPRESSION: Small left pleural effusion versus pleural thickening. Mild atelectasis or scarring in the left upper lung. [facility] PATIENT NAME: SAKSHI KELLEY [address] MEDICAL REC #: [id number] [place] [address] ADMIT DATE: 05/20/21 SERVICE DATE: 05/23/21 Occupational Therapy Assessment ATTENDING PHY: Hunter Davila MD RADIOLOGY - PORTABLE CHEST 05/21 1432 Report Impression - Status: SIGNED Entered: 05/21/2021 1510 IMPRESSION: Post-CABG changes. Endotracheal tube tip projects 5 cm above the corin. Other support devices are appropriately positioned. Mild right basilar atelectasis. Report was faxed at the time of dictation. RADIOLOGY - ABDOMEN OR KUB 05/21 1434 Report Impression - Status: SIGNED Entered: 05/21/2021 1507 IMPRESSION: Appropriately positioned enteric tube. Report was faxed at the time of dictation. . RADIOLOGY - PORTABLE CHEST 05/22 0407 Report Impression - Status: SIGNED Entered: 05/22/2021 0743 IMPRESSION: Improved right lower lung atelectasis. No visible pneumothorax. Prior Level of Functioning: Self Care: Patient completed the activities by him/herself, with or without an assistive device, with no assistance from a helper. Functional Cognition: Patient completed the activities by him/herself, with or without an assistive device, with no assistance from a helper. Pt states that he was not using an assistive device BEER COOLER and was I w/all self care tasks and shares homemaking tasks w/his . 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 Home Environment: Patient lives with his , 2 kids (20 and 9 years old), can provide 24 hr assistance , who is able to assist patient at discharge. Patient lives in a single family home. Home is three levels. Patient is required to manage 13 step(s) within the home, with right ascending handrails. Second floor bathroom setup available. Pt states he plans to sleep in the 1st floor bedroom, but his bath is located on the 2nd floor of the home. The bath is a tub/shower combination There are 2 steps to enter the home, with bilateral handrails. There is no ramp available to enter home. Equipment Owned: higher toilet seat w/2 grab bars, FWW, standard cane, grab bars and seat in tub/shower, user support analyst, sock aid, long bath sponge and long shoe horn [facility] PATIENT NAME: SAKSHI KELLEY 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 [facility] 05-23-2021 Note Physical Therapy Inpatient Evaluation Medical Diagnosis: Abnormal stress test, 05/21/21: CABG x 3 and left bullae resected from left upper lobe Therapy Diagnosis: Rank Code Description 1 R53.1 Weakness 2 R26.81 Unsteadiness on feet Demographics: Age: 51Y Gender: Male Primary Language: Czech Preferred Language: Czech Referring Service/Team: Medicine Past Medical History: Past Medical History Summary: HTN, HLD, Spontaneous pneumothorax Past Surgical History Summary: Left lung surgery due to spontaneous pneumothorax 1991 History of Present Illness: Date of Onset: 05/20 with surgery on 05/21/21 Additional Information: Mr Kelley is a 51 year old male with significant past medical history of HTN, HLD, and spontaneous pneumothorax of left lung that required surgical intervention. He presented today for heart catheterization due to on going chest pain, despite initially having a normal stress test. Repeat exercise stress test did not show ischemic changes. Heart cath showed significant CAD; therefore, CTS was consulted for evaluation of surgical intervention. Date of Admission: 05/20/2021 7:00:00 AM Rehabilitation Precautions/Restrictions: Sternal Precautions Imaging/Testing Results from Chart: RADIOLOGY - PORTABLE CHEST 05/20 1100 Report Impression - Status: SIGNED Entered: 05/20/2021 1136 IMPRESSION: Small left pleural effusion versus pleural thickening. Mild atelectasis or scarring in the left upper lung. RADIOLOGY - PORTABLE CHEST 05/21 1432 Report Impression - Status: SIGNED Entered: 05/21/2021 1510 IMPRESSION: Post-CABG changes. Endotracheal tube tip projects 5 cm above the corin. [facility] PATIENT NAME: SAKSHI KELLEY [address] MEDICAL REC #: [id number] [place] [address] ADMIT DATE: 05/20/21 SERVICE DATE: 05/23/21 Physical Therapy Assessment Report ATTENDING PHY: Hunter Davila MD Other support devices are appropriately positioned. Mild right basilar atelectasis. Report was faxed at the time of dictation. RADIOLOGY - ABDOMEN OR KUB 05/21 1434 Report Impression - Status: SIGNED Entered: 05/21/2021 1507 IMPRESSION: Appropriately positioned enteric tube. Report was faxed at the time of dictation. . RADIOLOGY - PORTABLE CHEST 05/22 0407 Report Impression - Status: SIGNED Entered: 05/22/2021 0743 IMPRESSION: Improved right lower lung atelectasis. No visible pneumothorax. SUBJECTIVE Prior Level of Functioning: Indoor Mobility: Patient completed the activities by him/herself, with or without an assistive device, with no assistance from a helper. Stairs: Patient completed the activities by him/herself, with or without an assistive device, with no assistance from a helper. Patient's is available around the clock. They have 4 childrena and live with a 20 year old son and a 9 year old son. Prior Device Use: Performance GG110. Prior Device None of Above Yes Patient/Caregiver Goals: Patient's functional goals: go home Pain: Patient currently without complaints of pain. Home Environment: Patient lives with , 2 kids (20 and 9 years old) , who is able to assist patient at discharge. Patient lives in a single family home. Home is two levels. Patient is required to manage 13 step(s) within the home, with 1 rail . First floor half bathroom setup available. Second floor bathroom setup available. There are 2 steps to enter the home, with bilateral handrails. There is no ramp available to enter home. 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 MEDICAL REC #: [id number] [place] [address] ADMIT DATE: 05/20/21 SERVICE DATE: 05/23/21 Physical Therapy Assessment Report ATTENDING PHY: Hunter Davila MD OBJECTIVE Cognitive Screen Responsiveness: Alert. Orientation: Oriented to person, place, time, and situation. Following Commands: Patient is able to follow 3-step commands. Range of Motion Lower Extremity: Grossly within functional limits Strength Lower Extremity: Grossly within functional limits Tone/Spasticity: No relevant impairments. Sensation: Grossly intact. Balance: Independent and within functional limits. Therapeutic/Functional Activities: Bed Mobility: All bed mobility including supine to sit, rolling, scooting. with independence. Transfers: Patient transferred sit to/from stand with independ (more content not included)... [facility] 05-20-2021 Note DATE OF SERVICE: PROCEDURE: Heart Catheterization SURGEON: Los Lujan DO INDICATIONS: Patient, down in [place], had a Lexiscan stress test which was read as normal. The patient continues to have chest discomfort; therefore, we did a walking non-nuclear stress test. Completed 7 mets with EKG changes suggestive of ischemia. He was recommended to have a heart catheterization. [facility] CONSCIOUS SEDATION PROTOCOL: Patient was to have continuous oximetry, EKGs and blood pressure measurements throughout the heart catheterization. Patient was given conscious sedation of 1 mg of Versed and 100 mcg of fentanyl. Prior to initiation of conscious sedation, the patient underwent a consent form and signed. Patient was explained the risks to benefits ratio of undergoing a heart catheterization including myocardial infarction, risk of stroke, , loss of limb and infection. Patient understood these risks and benefits and agreed to proceed. Therefore, a consent form was signed. [facility] PATIENT NAME: SAKSHI KELLEY [address] MEDICAL REC #: [id number] [place] [address] ADMIT DATE: 05/20/21 DISCHARGE DATE: 05/24/21 CARDIAC CATH ATTENDING PHY: Hunter Davila MD IV ACCESS: ARTERIAL The right femoral area was thoroughly prepped and draped according to the usual fashion. Using 1% lidocaine, the right femoral area was anesthetized. Once local anesthesia was obtained, a Cook needle was inserted into the femoral artery without any difficulty. A 0.035 J point J wire was inserted into the femoral artery without any difficulty. Under fluoroscopic guidance, it was noted to extend freely in the descending aorta. The patient then underwent an insertion of a Cordis 6 Nigerien sheath over the guide without any difficulty and this was aspirated freely. LEFT VENTRICULAR HEMODYNAMICS: Left ventricular hemodynamics were done with pigtail 6 Nigerien catheter by [employer]. This was easily led into the left ventricular cavity. Left ventricular systolic blood pressure was noted 150/8 preop, 150/3 post LV-gram, 150/70 aorta. Therefore, there are no signs of diastolic dysfunction. Therefore, no signs of aortic stenosis. LEFT VENTRICULOGRAM: Left ventriculogram was done with the same pigtail 6 Nigerien [facility] PATIENT NAME: SAKSHI KELLEY [address] MEDICAL REC #: [id number] [place] [address] ADMIT DATE: 05/20/21 DISCHARGE DATE: 05/24/21 CARDIAC CATH ATTENDING PHY: Hunter Davila MD course. This was done with the Renografin. This was done in 35 degree BAE positioning. Done with 24 mL dye at 10 mL per second of pressure of 350 was injected without any difficulty. This demonstrated a normal left ventricular function, ejection fraction 65%. No segmental wall motion abnormalities seen. CORONARY CINEANGIOGRAPHY: Coronary cineangiography was performed using a JL4 catheter. This was easily manipulated into the ostium of the left main and opacified in several projections revealing the following: LEFT MAIN: Left main maintained with a JL4 catheter with 80% distal left main. Left main gave rise to left anterior descending and the circumflex. LEFT ANTERIOR DESCENDING: Left anterior descending had 99% stenosis prior to the 1st septal industrial safety and health manager. It had KRISTOFER-grade 2 flow noted. CIRCUMFLEX: The circumflex is wide open. Circumflex was noted to give off a very large obtuse marginal. Also gave collaterals to the distal RCA. RIGHT CORONARY ARTERY: Maintained with a Gilles catheter. It was 100% occluded with [id number]-[id number] collaterals. Again competitive flow because it was being filled collaterals through the circumflex system. [facility] PATIENT NAME: SAKSHI KELLEY [address] MEDICAL REC #: [id number] [place] [address] ADMIT DATE: 05/20/21 DISCHARGE DATE: 05/24/21 CARDIAC CATH ATTENDING PHY: Hunter Davila MD The subclavian was injected with a Gilles catheter. The PARSONS and subclavian were noted to be free of disease. Angiogram of the femoral artery was normal. COMPRESSION: StarClose placed without any difficulty. IMPRESSION: 1. An 80% distal left main. 2. A 99% proximal left anterior descending prior to the 1st septal industrial safety and health manager. 3. Normal circumflex. 4. A 100% right coronary artery being filled by ygmq-[id number]-[id number] collaterals. 5. Normal left ventricular function. In light of these findings, feel at this time patient needs bypass surgery. Will go ahead and make her a surgical interventional call. Los Lujan DO /[id number] (more content not included)... [facility] documented as of this encounter (statuses as of 04/02/2022) [facility]12-08-2020 History of Past illness Narrative* Problem Noted Date Resolved Date Mixed hyperlipidemia 10/30/2020 06/08/2021 Hypertension 10/28/2021 documented as of this encounter (statuses as of 02/01/2023) [facility] History of Past illness Narrative* Problem Noted Date Resolved Date Mixed hyperlipidemia 10/30/2020 06/08/2021 Hypertension 10/28/2021 documented as of this encounter (statuses as of 02/03/2023) [facility] History of Past illness Narrative* Problem Noted Date Resolved Date Mixed hyperlipidemia 10/30/2020 06/08/2021 Hypertension 10/28/2021 documented as of this encounter (statuses as of 02/25/2023) [facility] History of Past illness Narrative* Problem Noted Date Diagnosed Date Resolved Date Mixed hyperlipidemia 10/30/2020 021 Hypertension 10/28/2021 documented as of this encounter (statuses as of 08/22/2023) [facility] Diagnosis Essential hypertension, benign- Primary Hyperlipidemia LDL goal <70 Other and unspecified hyperlipidemia Hx of CABG Postsurgical aortocoronary bypass status History of cardiovascular stress test Other specified personal history presenting hazards to health History of left heart catheterization Former smoker Personal history of tobacco use, presenting hazards to health Chest pain, unspecified type [facility] Diagnostic Procedure Only (Routine) - Pending Review Specialty Diagnoses / Procedures Referred By Kari tilley Referred To Contact MOLECULAR [facility] FUNCTIONAL IMAGING Diagnoses Chest pain, unspecified type Procedures NM CARDIAC PERF STRESS/EXERCISE MYOCARDIAL SPECT MULTIPLE STUDIES Los Lujan DO [address] [place] [address] Molecular & Functional Imaging [address] [id number] Referral ID Status Reason Start Date Expiration Date Visits Requested Visits Authorized [id number] Pending Review Auto-Generat ed Referral 02/01/2023 02/28/2024 1 1 * Outpatient Procedure (Routine) - Pending Review Specialty Diagnoses / Procedures Referred By Kari tilley Referred To Contact [facility] Diagnoses Essential hypertension, benign Procedures ECG COMPLETE ECG ROUTINE ECG W/LEAST 12 LDS W/I&R Los Lujan DO [address] [place], [place] [address]e EMILY [address] [place] [id number] [facility] [address] [place] [address] Referral ID Status Reason Start Date Expiration Date Visits Requested Visits Authorized [id number] Pending Review Auto-Generat ed Referral 01/28/2023 01/28/2024 1 1 [facility] Summary Purpose Family History No Family History Records FoundNo Family History Records FoundNo Family History Records FoundNo Family History Records Found Advance Directives No Advanced Directives Records FoundNo Advanced Directives Records FoundNo Advanced Directives Records FoundNo Advanced Directives Records Found Additional Source Comments (unrecognized sect ion and content) No Status Records FoundNo Status Records FoundNo Status Records FoundNo Status Records Found INFORMATION SOURCE (unrecogn ized section and content) DATE CREATED AUTHOR AUTHOR'S ORGANIZ ATION 01/12/2022 [facility] DATE CREATED AUTHOR AUTHOR'S ORGANIZ ATION 02/26/2023 [facility] DATE CREATED AUTHOR AUTHOR'S ORGANIZ ATION 02/27/2023 [facility] Source Comments (unrecognize d section and content) In the event this informatio n is protected by the Federal Confidentiality of Alcohol and Drug Abuse Patient Records regulations: The Federal rules restrict any use of the information to criminally investigate or prosecute any alcohol or drug abuse patient.[facility] the event this information is protected by the Federal Confidentiality of Alcohol and Drug Abuse Patient Records regulations: The Federal rules restrict any use of the information to criminally investigate or prosecute any alcohol or drug abuse patient.[facility] the event this information is protected by the Federal Confidentiality of Alcohol and Drug Abuse Patient Records regulations: The Federal rules restrict any use of the information to criminally investigate or prosecute any alcohol or drug abuse patient.[facility] the event this information is protected by the Federal Confidentiality of Alcohol and Drug Abuse Patient Records regulations: The Federal rules restrict any use of the information to criminally investigate or prosecute any alcohol or drug abuse patient.[facility] Reason for Visit (unrecogniz ed section and content) Reason Comments Established Patient Follow-Up Yearly fol low up Reason Comments PA for stress test Reason Comments Results Stress test FOR RECORDS PERTAINING TO PATIENTS WHO ARE OR HAVE BEEN ENROLLED IN A CHEMICAL DEPENDENCY/SUBSTANCEABUSE PROGRAM, SOME INFORMATION MAY BE OMITTED. This clinical summary was aggregated from multiple sources. Caution should be exercised in using it in the provision of clinical care. This summary normalizes information from multiple sources, and as a consequence, information in this document may materially change the coding, format and clinical context of patient data. In addition, data may be omitted in some cases. CLINICAL DECISIONS SHOULD BE BASED ON THE PRIMARY CLINICAL RECORDS. [facility]. provides no warranty or guarantee of the accuracy or completeness of information in this document.
[2024-01-22 10:19] LABS: ALB/GLOB Ratio 1.1 RATIO (0.9-2.4); AST(SGOT) 61 U/L (15-37); Alanine Aminotransfer ALT/SGPT 126 U/L (16-61); Alkaline Phosphatase 53 U/L (45-117); Anion Gap 5 (5-15); BUN 19 mg/dL (7-18); Calcium,Total 9.4 mg/dL (8.5-10.1); Chloride 108 mmol/L (98-107); Cholesterol 146 mg/dL (200); Creatinine, Serum 0.95 mg/dL (0.70-1.30); EST Glomerular Filtration Rate 88 mL/min (>60); Est Glom Filt Rate - Afr Amer 106 mL/min (>60); Globulin 3.8 g/dL (2.2-4.2); Glucose 159 mg/dL (74-106); High Density Lipoprotein 51 mg/dL; Potassium 3.7 mmol/L (3.5-5.1); Protein, Total 7.8 g/dL (6.4-8.2); Sodium Level 140 mmol/L (136-145); Triglycerides 253 mg/dL; Very Low Density Lipoprotein 51 mg/dL (5-40)
[2024-01-22 10:24] LABS: Hemoglobin A1c 6.3 % (3.8-5.6)
[2024-01-22 10:41] LABS: Microalbumin,Random Urine 46.6 mg/L (NO RANGE EST.); Microalbumin:Creatinine Ratio 22.5 mg/g CRE (<30 mg/g CRE)
== END | disposition home or self-care (01) ==
LOC: MTLAB 07:20
PROVIDERS: PCP Nurse Practitioner Family; Referring Provider Nurse Practitioner Family; Visit Provider Nurse Practitioner Family
DX: I10 Essential (primary) hypertension (principal); R73.01 Impaired fasting glucose; E78.5 Hyperlipidemia, unspecified; R79.89 Other specified abnormal findings of blood chemistry; E78.1 Pure hyperglyceridemia
CPT/HCPCS: 36415; 80053; 80061; 82043; 82570; 83036

== ENCOUNTER → 2024-08-19 | Outpatient (CLI) | payer BC, SELFPAY ==
[2024-08-19 13:18] LABS: Microalbumin,Random Urine 23.5 mg/L (NO RANGE EST.); Microalbumin:Creatinine Ratio 10.3 mg/g CRE (<30 mg/g CRE)
[2024-08-19 13:58] LABS: ALB/GLOB Ratio 1.1 RATIO (0.9-2.4); AST(SGOT) 71 U/L (15-37); Alanine Aminotransfer ALT/SGPT 125 U/L (16-61); Albumin, Serum 3.9 g/dL (3.2-5.0); Alkaline Phosphatase 57 U/L (45-117); Anion Gap 7 (5-15); BUN 15 mg/dL (7-18); BUN/Creat Ratio 16.3 RATIO (10-20); Calcium,Total 9.6 mg/dL (8.5-10.1); Chloride 106 mmol/L (98-107); Cholesterol 117 mg/dL (200); Creatinine, Serum 0.92 mg/dL (0.70-1.30); EST Glomerular Filtration Rate 91 mL/min (>60); Est Glom Filt Rate - Afr Amer 110 mL/min (>60); Globulin 3.7 g/dL (2.2-4.2); Glucose 112 mg/dL (74-106); High Density Lipoprotein 48 mg/dL; PSA,Total - Annual Screen 0.44 ng/mL (0.00-4.00); Protein, Total 7.6 g/dL (6.4-8.2); Sodium Level 138 mmol/L (136-145); Triglycerides 119 mg/dL; Very Low Density Lipoprotein 24 mg/dL (5-40)
== END | disposition home or self-care (01) ==
LOC: MTLAB 09:45
PROVIDERS: PCP Nurse Practitioner Family; Referring Provider Nurse Practitioner Family; Visit Provider Nurse Practitioner Family
DX: Z12.5 Encounter for screening for malignant neoplasm of prostate (principal); I10 Essential (primary) hypertension; R73.01 Impaired fasting glucose; I25.10 Atherosclerotic heart disease of native coronary artery without angina pectoris; R79.89 Other specified abnormal findings of blood chemistry; E78.5 Hyperlipidemia, unspecified; E78.1 Pure hyperglyceridemia
CPT/HCPCS: 36415; 80053; 80061; 82043; 82570; 83036; 84153; G0103

== ENCOUNTER → 2025-01-20 | Outpatient (CLI) | payer BC, SELFPAY ==
[2025-01-20 11:14] LABS: Hemoglobin A1c 8.9 % (<=5.6)
[2025-01-20 11:15] LABS: ALB/GLOB Ratio 1.2 RATIO (0.9-2.4); AST(SGOT) 79 U/L (<=37); Alanine Aminotransfer ALT/SGPT 120 U/L (<=46); Albumin, Serum 4.3 g/dL (3.5-5.0); Alkaline Phosphatase 66 U/L (40-129); Anion Gap 12 (5-15); BUN 12 mg/dL (4-19); BUN/Creat Ratio 14.1 RATIO (10-20); Calcium 9.8 mg/dL (7.6-11.0); Carbon Dioxide 24.8 mmol/L (22.0-29.0); Chloride 99 mmol/L (96-108); Creatinine, Serum 0.83 mg/dL (0.70-1.20); EST Glomerular Filtration Rate 104 (>60); Globulin 3.5 g/dL (2.2-4.2); Glucose 223 mg/dL (70-99); Protein, Total 7.9 g/dL (5.9-8.4); Sodium Level 136 mmol/L (133-145); Total Bilirubin 0.44 mg/dL (0.00-1.30)
[2025-01-20 11:45] LABS: Microalbumin,Random Urine 56.8 mg/L (NO RANGE EST.); Microalbumin:Creatinine Ratio 208.8 mg/g CRE
[2025-01-20 12:38] LABS: Cholesterol 150 mg/dL (<=200); High Density Lipoprotein 39 mg/dL; Low Density Lipoprotein Calc. 81 mg/dL; Triglycerides 150 mg/dL; Very Low Density Lipoprotein 30 mg/dL (5-40); cholesterol:hdl ratio screen 3.86
== END | disposition home or self-care (01) ==
LOC: MTLAB 07:04
PROVIDERS: PCP Nurse Practitioner Family; Referring Provider Nurse Practitioner Family; Visit Provider Nurse Practitioner Family
DX: I10 Essential (primary) hypertension (principal); I25.10 Atherosclerotic heart disease of native coronary artery without angina pectoris; E78.1 Pure hyperglyceridemia; E78.5 Hyperlipidemia, unspecified; R73.01 Impaired fasting glucose
CPT/HCPCS: 36415; 80053; 80061; 82043; 82570; 83036

== ENCOUNTER → 2025-07-26 | Outpatient (CLI) | payer BC, SELFPAY ==
--- OUTSIDE RECORDS SUMMARY | 2025-07-26 07:27 | XMS RPT_ITS | CCD ---
Author Organization [facility] Care Team Providers Care Waiter/Waitress Dining Car Name Role Phone Unavailable Primary Care Provider LOS Fraga Attending Unavailable LSO FULLER Referring Unavailable LOS FULLER Attending Unavailable LOS FULLER Referring Unavailable Unavailable Primary Care Provider Melody Jay CNP Primary Care Provider Melody Mary CNP Primary Care Provider [employer] SYSTEM[employer] SOFTWARE DESIGNER-C, Melody Zurita Primary Care Provi yissel Usman SYSTEM[employer] SOFTWARE DESIGNER-CMelody Attending Provider [employer] SOFTWARE DESIGNER-C, Melody Zurita Referring Provider SHANA FARRIS Attending Unavailable MELODY MARY Primary Care Unavailable Melody Mary Referring Unavail able Melody Mary Attending Unavail able Melody Mary Primary Care Unavail able Melody Mary Primary Care Unavail able Melody Mary Referring Unavail able BarberMelody verduzco Attending Unavail able Allergies Allergy Classification Reported Allergen(s) Allergy Type Date of Onset Reaction(s) Facility (9 sources) Morphine; Translations: [MORPHINE] Drug Allergy 10-30-2020 Unknown [facility] Medications Current Medications Medication Drug Class(es) Dates Sig (Normalized) Sig (Original) Aspirin (7 sources) Platelet Aggregation Inhibitor, Nonsteroidal Anti-inflammatory Drug take 1 tablet by mouth once daily aspirin (ASPIR-81 ORAL) Take 1 tablet by mouth once daily. Active aspirin (ASPIR-8 1 ORAL) Take by mouth once daily. 0 Active Comment on above: Take by mouth once d aily. meloxicam 15 mg oral tablet (6 sources) Nonsteroidal Anti-inflammatory Drug take 1 tablet by mouth once daily meloxicam (MOBIC) 15 mg tablet Take 15 mg by mouth once daily. Active Comment on above: Take 15 mg by mouth once daily. osmotic 24 hr metFORMIN hydrochloride 500 mg extended release oral tablet (1 source) Biguanide take 1 tablet by mouth once daily metFORMIN ER (FORTAMET) 500 mg 24 hr tablet Take 1 tablet by mouth once daily. Active ramipril 10 mg oral capsule (7 sources) Angiotensin Converting Enzyme Inhibitor take 1 capsule by mouth once daily ramipril (ALTACE) 10 mg capsule Take 10 mg by mouth once daily. Active Comment on above: Take 10 mg by mouth once daily. rosuvastatin calcium 20 mg oral tablet (7 sources) HMG-CoA Reductase Inhibitor Start: 05-12-20 take 1 tablet by mouth once daily rosuvastatin (CRESTOR) 20 mg tablet Take 20 mg by mouth once daily. 05/12/2021 Active Comment on above: Take 20 mg by mouth once daily. Completed/Discontinued Medications Medication Drug Class(es) Dates Sig (Normalized) Sig (Original) apixaban 5 mg oral tablet (6 sources) Factor Xa Inhibitor End: 02-15-2024 take 1 tablet by mouth twice daily apixaban (ELIQUIS) 5 mg tab(s) Take 5 mg by mouth two times a day. 0 02/15/2024 Discontinued (Other) Comment on above: Take 5 mg by mouth t wice daily. Take 5 mg by mouth t wo times a day. atorvastatin 40 mg oral tablet (4 sources) HMG-CoA Reductase Inhibitor Start: 10-30-2020 End: 02-15-2024 take 1 tablet by mouth once daily atorvastatin (LIPITOR) 40 mg tablet Indications: Mixed hyperlipidemia Take 1 tablet by mouth once daily. 90 tablet 3 10/30/2020 02/15/2024 Discontinued (Other) Comment on above: Take 1 tablet by kim once daily. benzonatate 100 mg oral capsule (6 sources) Non-narcotic Antitussive Start: 05-24-2021 End: 02-15-2024 take 1 capsule by mouth three times daily as needed for cough benzonatate (TESSALON PERLE) 100 mg capsule TAKE 1 CAPSULE BY MOUTH THREE TIMES A DAY NEEDED FOR COUGH 0 05/24/2021 02/15/2024 Discontinued (Other) Comment on above: TAKE 1 CAPSULE BY [facility] THREE TIMES A DAY NEEDED FOR COUGH clopidogrel 75 mg oral tablet (6 sources) P2Y12 Platelet Inhibitor Start: 05-24-2021 End: 02-15-2024 take 1 tablet by mouth once daily at bedtime clopidogrel (PLAVIX) 75 mg tablet TAKE 1 TABLET BY MOUTH EVERYDAY AT BEDTIME 0 05/24/2021 02/15/2024 Discontinued (Other) Comment on above: TAKE 1 TABLET BY KIM TH EVERYDAY AT BEDTIME docusate sodium 100 mg oral capsule (6 sources) Start: 05-24-2021 End: 02-15-2024 take 1 capsule by mouth twice daily docusate sodium (COLACE) 100 mg capsule Take 100 mg by mouth two times a day. 0 05/24/2021 02/15/2024 Discontinued (Other) Comment on above: Take 100 mg by mouth twice daily. Take 100 mg by mouth two times a day. magnesium oxide 400 mg oral tablet (6 sources) Start: 05-24-2021 End: 02-15-2024 take 1 tablet by mouth once daily magnesium oxide (MAG-OX) 400 mg (241.3 mg magnesium) tablet Take 1 tablet by mouth once daily. 0 05/24/2021 02/15/2024 Discontinued (Other) Comment on above: Take 1 tablet by kim th once daily. metoprolol tartrate 50 mg oral tablet (7 sources) beta-Adrenergic Eitan Start: 04-02-2022 End: 02-15-2024 take 1 tablet by mouth once daily metoprolol tartrate, short acting, (LOPRESSOR) 50 mg tablet Take 1 tablet by mouth once daily. 90 tablet 3 04/02/2022 02/15/2024 Discontinued (Other) End: 03-28-2022 take 1 tablet by mouth once daily metoprolol tartrate, short acting, (LOPRESSOR) 50 mg tablet Take 50 mg by mouth once daily. 0 03/28/2022 Discontinued Comment on above: Take 1 tablet by kim th once daily. Take 50 mg by mouth once daily. Problems Active Problems Problem Classification Problem Date Documented Da te Episodic/Chronic Alcohol-related disorders (6 sources) Alcohol withdrawal syndrome; Translations: [Alcohol dependence with withdrawal, unspecified] 11-30-2013 Chronic Coronary atherosclerosis and other heart disease (2 sources) Coronary arteriosclerosis; Translations: [Atherosclerotic heart disease of chilkat coronary artery without angina pectoris] Onset: 02-14-2025 02-14-2025 Chronic Disorders of lipid metabolism (19 sources) Hyperlipidemia; Translations: [Hyperlipidemia, unspecified] Onset: 10-30-2020 Resolved: 06-08-2021 08-22-2021 Chronic Essential hypertension (15 sources) Benign essential hypertension; Translations: [Essential (primary) hypertension] Onset: 10-30-2020 Resolved: 10-28-2021 08-22-2021 Chronic Nonspecific chest pain (3 sources) Chest pain; Translations: [Chest pain, unspecified] Onset: 01-29-2023 Episodic Residual codes; unclassified (19 sources) Past history of procedure; Translations: [Personal history of other medical treatment] Onset: 10-12-2020 10-30-2020 Episodic Residual codes; unclassified (10 sources) History of cardiac catheterization; Translations: [Other specified postprocedural states] Onset: 05-20-2021 06-08-2021 Episodic Substance-related disorders (17 sources) Nicotine dependence; Translations: [Nicotine dependence, cigarettes, uncomplicated] Onset: 10-30-2020 10-30-2020 Chronic Past or Other Problems Problem Classification Problem Date Documented Da te Episodic/Chronic Coronary atherosclerosis and other heart disease (2 sources) Presence of aortocoronary bypass graft; Translations: [Hx of CABG] Onset: 06-08-2021 Episodic Other aftercare (7 sources) Post-discharge follow-up; Translations: [Encounter for follow-up examination after completed treatment for conditions other than malignant neoplasm] Onset: 10-30-2020 10-30-2020 Episodic Other screening for suspected conditions (not mental disorders or infectious disease) (1 source) Encounter for screening for malignant neoplasm of prostate; Translations: [Encounter for screening for malignant neoplasm of prostate] Onset: 09-16-2024 Episodic Residual codes; unclassified (2 sources) Personal history of other medical treatment; Translations: [History of cardiovascular stress test] Onset: 10-30-2020 Episodic Residual codes; unclassified (2 sources) Other specified postprocedural states; Translations: [History of left heart catheterization] Onset: 06-08-2021 Episodic Screening and history of mental health and substance abuse codes (11 sources) Ex-smoker; Translations: [Personal history of nicotine dependence] Onset: 08-22-2021 08-22-2021 Episodic Results Test Name Value Interpretation Reference Range Facility Microalb:Creat Ratio,Random URon 06-19-2025 MALB:CREAT 20.9 mg/g CRE Normal <30 mg/g CRE [facility] Comment on above: Result Comment: AMENDED REPORT 06/19/252016 MALB:CREAT previously reported as: 208.8 mg/g CRE Performed By: #### L 501.9985, L500.4100, L502.0250, L500.4050 #### [facility] [address] [place], [address] CNOVon 02-14-2025 CNOV Office Visit (CAUNDO ) SAKSHI KELLEY ([id number]) 1970 M Date Time Provider Department 02/14/25 3:20 PM SHANA FARRIS During your visit today, we recorded the following information about you: Pulse Blood pressure Weight Height 75/minute 128/72 87.3 kg 1.803 m Shana Farris APRN.RFID ANALYST 02/14/2025 4:54 PM Signed [facility] Department of Cardiology Referring Provider: No ref. provider found Date: February 14, 2025 Chief Complaint: Essential hypertension, benign Subjective: The patient is a 54-year-old male with a history of hypertension and CAD, status post-CABG x3, presenting for follow-up. Patient denies any headaches, dizziness, syncope or near syncopal episodes. Patient has had no chest pain, palpitations, PND, or orthopnea. The patient underwent CABG x3 on 05/21/2021 at [facility], performed by Dr. Davila. Prior to the surgery, a cardiac catheterization on 05/20/2021 revealed 80% stenosis of the distal LM, 99% stenosis of the proximal LAD, normal circumflex artery, and 100% occlusion of the RCA with collateral circulation from the left to right. LV function was normal. He is a former cigarette smoker and currently uses vaping with nicotine. He is currently on Crestor for CAD and takes antihypertensive medication daily. ALLERGIES Allergen Reactions Morphine Unknown PAST MEDICAL [...] L to R collaterals. Normal LV function History of stress test 02/24/2023 No ischemia. EF 64% Hx of CABG 05/21/2021 CABG x3 using PARSONS to mid LAD, reverse SVG to OM 2, reverse SVG to high take off posterior descending. Done by Dr. Davila @ [facility] Hyperlipidemia Hypertension Type 2 diabetes mellitus (HCC) History reviewed. No pertinent surgical history. FAMILY HISTORY Problem Relation Age of Onset Ovarian cancer Mother other (Other CABG) Father other (CABG) Paternal Grandfather SOCIAL HISTORY: Tobacco Use: Types: Cigarettes Alcohol Use: Yes (1-2 times monthly) Drug Use: Not Currently Employer And Job Title: None on file Years Of Education Completed: Not specified Marital Status: MEDICATIONS: Current Outpatient Medications Medication Sig metFORMIN ER (FORTAMET) 500 mg 24 hr tablet Take 1 tablet by mouth once daily. meloxicam (MOBIC) 15 mg tablet Take 15 mg by mouth once daily. ramipril (ALTACE) 10 mg capsule Take 10 mg by mouth once daily. rosuvastatin (CRESTOR) 20 mg tablet Take 20 mg by mouth once daily. aspirin (ASPIR-81 ORAL) Take 1 tablet by mouth once daily. No current facility-administered medications for this visit. I have personally reviewed the patients past medical history including social, family, surgical, diagnostics, and medications./AB REVIEW OF SYSTEMS: Review of Systems Constitutional: Negative for chills and fatigue. Respiratory: Negative for chest tightness and shortness of breath. Cardiovascular: Negative for chest pain, palpitations and leg swelling. Neurological: Negative for dizziness, syncope, weakness and light-headedness. Hematological: Bruises/bleeds easily. Psychiatric/Behaviora l: Negative for confusion and hallucinations. Vitals: BP 128/72 (BP Site: Left Arm, BP Position: Sitting, BP Cuff Size: Large Adult) Pulse 75 Ht 180.3 cm (5' 11) Wt 87.3 kg (192 lb 7.4 oz) BMI 26.84 kg/m? PHYSICAL EXAMINATION: BP 128/72 (BP Site: Left Arm, BP Position: Sitting, BP Cuff Size: Large Adult) Pulse 75 Ht 180.3 cm (5' 11) Wt 87.3 kg (192 lb 7.4 oz) BMI 26.84 kg/m? Last 3 Encounter BP Readings: Date: BP: 02/15/2024 138/80 01/29/2023 138/82 01/23/2022 132/64 Last 3 Encounter Pulse Readings: Date: Pulse: 02/15/2024 93 01/29/2023 77 01/23/2022 72 Last 3 Encounter Wt Readings: Date: Wt: 02/15/2024 85.3 kg (188 lb) 01/29/2023 84.4 kg (186 lb) 01/23/2022 81.6 kg (180 lb) Physical Exam Vitals reviewed. Constitutional: General: He is not in acute distress. Appearance: Normal appearance. He is not ill-appearing or diaphoretic. Neck: Vascular: No carotid bruit. Cardiovascular: Rate and Rhythm: Normal rate and regular rhythm. Pulses: Carotid pulses are 2+ on the right side and 2+ on the left side. Radial pulses are 2+ on the (more content not included)... Normal [facility] ECG COMPLETEon 02-14-2025 ECG COMPLETE Ventricular Rate : 7 5 BPM Atrial Rate : 75 BPM P-R Interval : 178 ms QRS Duration : 90 ms Q-T Interval : 384 ms QTC Calculation(Bazett) : 428 ms Calculated P [place] : 68 degrees Calculated R [place] : 75 degrees Calculated T [place] : 62 degrees Normal sinus rhythm Normal ECG When compared with ECG of 15-Feb-2024 15:21, No significant change was found Confirmed by LOS FULLER DO ([id number]) on 02/19/2025 5:08:37 PM NAME : SAKSHI KELLEY PID : [id number] : 1970 Gender : Male Race : ORD : [id number] Procedure Date : Feb 14 2025 15:05:40 Edit Date : Feb 19 2025 17:08:38 Diagnosis: Normal sinus rhythm Normal ECG When compared with ECG of 15-Feb-2024 15:21, No significant change was found Confirmed by LOS FULLER DO ([id number]) on 02/19/2025 5:08:37 PM Test Reason : HCS Location : 2 : [facility]PCARD Overread By : LOS FULLER DO Edited By : LOS FULLER DO Referred By : , Acquired by : , Normal [facility] Albumin DL <= 20 mg/L (U) [M ass/Vol]Ordered By: Melody Mary on 01-20-2025 Urine Random Microalbumin 56.8 mg/L NO RANGE EST. [facility] BUN/creatinine ratioOrdered By: Melody Mary on 01-20-2025 Urea nitrogen/Creatinine [Mass ratio] 14.1 mg/mg 10-20 [facility] Bilirubin, totalOrdered By: Melody Mary on 01-20-2025 Bilirubin [Mass/Vol] 0.44 mg/dL 0.00-1.30 [facility] Calculated very low density lipoprotein (VLDL) cholesterol measurementOrdered By: Melody Mary on 01-20-2025 VLDL Cholesterol 30 mg/dL 5-40 [facility] Carbon dioxide measurementOr dered By: Melody Mary on 01-20-2025 CO2 [Moles/Vol] 24.8 mmol/L 22.0-29.0 [facility] Chloride measurementOrdered By: Melody Mary on 01-20-2025 Chloride [Moles/Vol] 99 mmol/L 96-108 [facility] Comprehensive Metabolic Prof ilon 01-20-2025 Albumin [Mass/Vol] 4.3 g/dL Normal 3.5-5.0 [facility] Comment on above: Performed By: #### L 501.9947, L500.4100, L502.0250, L500.4050 #### [facility] [address] [place], [place] [address], [address] Albumin/Globulin [Mass ratio] 1.2 {ratio} Normal 0.9-2.4 [facility] Comment on above: Performed By: #### L [id number], L500.4100, L502.0250, L500.4050 #### [facility] [address] [place], [address] ALK PHOS 66 U/L Normal 40-129 [facility] Comment on above: Performed By: #### L [id number], L500.4100, L502.0250, L500.4050 #### [facility] [address] [place], [address] ALT [Catalytic activity/Vol] 120 U/L High <=46 [facility] Comment on above: Performed By: #### L 501.9985, L500.4100, L502.0250, L500.4050 #### [facility] [address] [place], [address] Anion gap [Moles/Vol] 12 mmol/L Normal 5-15 [facility] Comment on above: Performed By: #### L [id number], L500.4100, L502.0250, L500.4050 #### [facility] [address] [place], [address] AST [Catalytic activity/Vol] 79 U/L High <=37 [facility] Comment on above: Performed By: #### L [id number], L500.4100, L502.0250, L500.4050 #### [facility] [address] [place], [address] Bilirubin [Mass/Vol] 0.44 mg/dL Normal 0.00-1.30 [facility] Comment on above: Performed By: #### L 501.9985, L500.4100, L502.0250, L500.4050 #### [facility] [address] [place], [address] BUN/CRE 14.1 RATIO Normal 10-20 [facility] Comment on above: Performed By: #### L 501.9985, L500.4100, L502.0250, L500.4050 #### [facility] [address] [place], [address] Calcium [Mass/Vol] 9.8 mg/dL Normal 7.6-11.0 [facility] Comment on above: Performed By: #### L 501.9985, L500.4100, L502.0250, L500.4050 #### [facility] [address] [place], [address] Chloride [Moles/Vol] 99 mmol/L Normal 96-108 [facility] Comment on above: Performed By: #### L 501.9985, L500.4100, L502.0250, L500.4050 #### [facility] [address] [place], [address] CO2 [Moles/Vol] 24.8 mmol/L Normal 22.0-29.0 [facility] Comment on above: Performed By: #### L 501.9985, L500.4100, L502.0250, L500.4050 #### [facility] [address] [place], [address] Creatinine [Mass/Vol] 0.83 mg/dL Normal 0.70-1.20 [facility] Comment on above: Performed By: #### L 501.9985, L500.4100, L502.0250, L500.4050 #### [facility] [address] [place], [address] GFR/1.73 sq M.predicted among non-blacks MDRD (S/P/Bld) [Vol rate/Area] 104 mL/min/{1.73_m2} Normal >60 [facility] Comment on above: Result Comment: mL/m in/1.73m2 CKD-EPI Creatinine Equation (2020) Performed By: #### L 501.9985, L500.4100, L502.0250, L500.4050 #### [facility] [address] [place], [address] Globulin (S) [Mass/Vol] 3.5 g/dL Normal 2.2-4.2 [facility] Comment on above: Performed By: #### L 501.9985, L500.4100, L502.0250, L500.4050 #### [facility] [address] [place], [address] Glucose [Mass/Vol] 223 mg/dL High 70-99 [facility] Comment on above: Performed By: #### L 501.9985, L500.4100, L502.0250, L500.4050 #### [facility] [address] [place], [address] Potassium [Moles/Vol] 4.0 mmol/L Normal 3.3-5.1 [facility] Comment on above: Performed By: #### L 501.9985, L500.4100, L502.0250, L500.4050 #### [facility] [address] [place], [address] Sodium [Moles/Vol] 136 mmol/L Normal 133-145 [facility] Comment on above: Performed By: #### L 501.9985, L500.4100, L502.0250, L500.4050 #### [facility] [address] [place], [address] T PROT 7.9 g/dL Normal 5.9-8.4 [facility] Comment on above: Performed By: #### L 501.9985, L500.4100, L502.0250, L500.4050 #### [facility] [address] [place], [address] Urea nitrogen [Mass/Vol] 12 mg/dL Normal 4-19 [facility] Comment on above: Performed By: #### L 501.9985, L500.4100, L502.0250, L500.4050 #### [facility] [address] [place], [address] Creatinine Unsp time (U) [Ma ss/Vol]Ordered By: Melody Mary on 01-20-2025 Creatinine (U) [Mass/Vol] 272.00 mg/dL High 39-259 [facility] GFR/1.73 sq M.predicted alyse g non-blacks MDRD (S/P/Bld) [Vol rate/Area]Ordered By: Melody Mary on 01-20-2025 Estimated GFR (MDRD) Non-Af Amer 104 >60 [facility] Comment on above: mL/min/1.73m2 CKD-EP I Creatinine Equation (2020) Hemoglobin A1con 01-20-2025 HbA1c (Bld) [Mass fraction] 8.9 % Normal <=5.6 [facility] Comment on above: Performed By: #### L 501.9985, L500.4100, L502.0250, L500.4050 #### [facility] [address] [place], [place], [address] Hemoglobin A1c percentageOrd ered By: Melody Mary on 01-20-2025 HbA1c (Bld) [Mass fraction] 8.9 % >5.7 [facility] LDL calc ser/plasOrdered By: Melody Mary on 01-20-2025 LDL Cholesterol, Calculated 81 mg/dL [facility] Comment on above: Gzqtbimffi=135-100 m g/dL & Higher Rkkq=110 mg/dL or greater Laboratory - Chemistry and C hemistry - challengeOrdered By: Melody Mary on 01-20-2025 AST [Catalytic activity/Vol] 79 U/L High <38 [facility] Lipid Profileon 01-20-2025 CHOL:HDL 3.86 Normal [facility] Comment on above: Performed By: #### L 501.9985, L500.4100, L502.0250, L500.4050 #### [facility] [address] [place], [address] Cholesterol [Mass/Vol] 150 mg/dL Normal <=[address] [facility] Comment on above: Result Comment: Chol esterol level, Desirable <200 mg/dL Borderline high cholesterol 200-239 mg/dL High cholesterol >=240 mg/dL Recommendations of the NCEP Adult Treatment Panel for the following risk-cutoff thresholds for the [place] population. Performed By: #### L 501.9985, L500.4100, L502.0250, L500.4050 #### [facility] [address] [place], [address] Cholesterol in HDL [Mass/Vol] 39 mg/dL Low [facility] Comment on above: Result Comment: [place] on[place] Cholesterol Education Program (NCEP) guidelines: <40 mg/dL: Low HDL-cholesterol (major risk factor for CHD) >= 60 mg/dL: High HDL-cholesterol (negative risk factor for CHD) HDL-cholesterol is affected by a number of factors, e.g. smoking, exercise, hormones, sex and age. Performed By: #### L 501.9985, L500.4100, L502.0250, L500.4050 #### [facility] [address] [place], [address] Cholesterol in LDL [Mass/Vol] 81 mg/dL Normal [facility] Comment on above: Result Comment: Bord czhvka=097-130 mg/dL Higher Xcuq=216 mg/dL or greater Performed By: #### L 501.9985, L500.4100, L502.0250, L500.4050 #### [facility] [address] [place], [address] Cholesterol in VLDL [Mass/Vol] 30 mg/dL Normal 5-40 [facility] Comment on above: Performed By: #### L 501.9985, L500.4100, L502.0250, L500.4050 #### [facility] [address] [place], [address] Triglyceride [Mass/Vol] 150 mg/dL Normal [facility] Comment on above: Result Comment: The drugs N-Acetylcysteine and Metamizole may falsely depress this assay. Normal range: <150 mg/dL Borderline High: 150-199 mg/dL High: 200-499 mg/dL Very High: >500 mg/dL Performed By: #### L [id number], L500.4100, L502.0250, L500.4050 #### [facility] [address] [place], [place], [address] Microalbumin/creat ratio urO rdered By: Melody Mary on 01-20-2025 Urine Microalbumin/Creatinin e Ratio 208.8 mg/g CRE [facility] Screening total cholesterol/ high density lipoprotein (HDL) cholesterol ratioOrdered By: Melody Mary on 01-20-2025 Cholesterol.total/Chol esterol in HDL [Mass ratio] 3.86 {ratio} [facility] Serum creatinine measurement (mass/volume)Ordered By: Melody Mary on 01-20-2025 Creatinine [Mass/Vol] 0.83 mg/dL 0.70-1.20 [facility] Serum globulin measurementOr dered By: Melody Mary on 01-20-2025 Globulin (S) [Mass/Vol] 3.5 g/dL 2.2-4.2 [facility] Serum glucose measurement (m ass/volume)Ordered By: Melody Mary on 01-20-2025 Glucose [Mass/Vol] 223 mg/dL High 70-99 [facility] Serum or plasma alanine aguilera otransferase (ALT) measurementOrdered By: Melody Mary on 01-20-2025 ALT [Catalytic activity/Vol] 120 U/L High <47 [facility] Serum or plasma albumin sal urement (mass/volume)Ordered By: Melody Mary on 01-20-2025 Albumin [Mass/Vol] 4.3 g/dL 3.5-5.0 [facility] Serum or plasma albumin/glob ulin mass ratioOrdered By: Melody Mary on 01-20-2025 Albumin/Globulin [Mass ratio] 1.2 {ratio} 0.9-2.4 [facility] Serum or plasma alkaline zhen sphatase measurementOrdered By: Melody Mary on 01-20-2025 ALP [Catalytic activity/Vol] 66 U/L 40-129 [facility] Serum or plasma anion gap de termination (moles/volume)Ordered By: Melody Mary on 01-20-2025 Anion gap [Moles/Vol] 12 mmol/L 5-15 [facility] Serum or plasma calcium sal urement (mass/volume)Ordered By: Melody Mary on 01-20-2025 Calcium [Mass/Vol] 9.8 mg/dL 7.6-11.0 [facility] Serum or plasma cholesterol in HDL measurement (mass/volume)Ordered By: Melody Mary on 01-20-2025 Cholesterol in HDL [Mass/Vol] 39 mg/dL Low >40 [facility] Comment on above: National Cholesterol Education Program (NCEP) guidelines:<40 mg/dL: Low HDL-cholesterol (major risk factor for CHD)>= 60 mg/dL: High HDL-cholesterol (negative risk factor for CHD)HDL-cholesterol is affected by a number of factors, e.g. smoking, exercise, hormones, sex and age. Serum or plasma cholesterol measurement (mass/volume)Ordered By: Melody Mary on 01-20-2025 Cholesterol [Mass/Vol] 150 mg/dL <[address] [facility] Comment on above: Cholesterol level, D esirable <200 mg/dLBorderline high cholesterol 200-239 mg/dLHigh cholesterol >=240 mg/dLRecommendations of the NCEP Adult Treatment Panel for the following risk-cutoff thresholds for the [place] population. Serum or plasma potassium me asurementOrdered By: Melody Mary on 01-20-2025 Potassium [Moles/Vol] 4.0 mmol/L 3.3-5.1 [facility] Serum or plasma sodium measu rement (moles/volume)Ordered By: Melody Mary on 01-20-2025 Sodium [Moles/Vol] 136 mmol/L 133-145 [facility] Serum or plasma urea nitroge n measurement (mass/volume)Ordered By: Melody Mary on 01-20-2025 Urea nitrogen [Mass/Vol] 12 mg/dL 4-19 [facility] Total proteinOrdered By: Ad tim Usman on 01-20-2025 Protein [Mass/Vol] 7.9 g/dL 5.9-8.4 [facility] Triglycerides measurementOrd ered By: Melody Mary on 01-20-2025 Triglyceride [Mass/Vol] 150 mg/dL <199 [facility] Comment on above: The drugs N-Acetylcy steine and Metamizole may falsely depress this assay. Normal range: <150 mg/dLBorderline High: 150-199 mg/dLHigh: 200-499 mg/dLVery High: >500 mg/dL Comprehensive Metabolic Prof ilon 08-19-2024 Albumin [Mass/Vol] 3.9 g/dL Normal 3.2-5.0 [facility] Comment on above: Performed By: #### L 502.0250, L501.9985, L501.9910, L500.4100, L500.4050 #### [facility] [address] [place], [address] Albumin/Globulin [Mass ratio] 1.1 {ratio} Normal 0.9-2.4 [facility] Comment on above: Performed By: #### L 502.0250, L501.9985, L501.9910, L500.4100, L500.4050 #### [facility] [address] [place], [address] ALK P 57 U/L Normal 45-117 [facility] Comment on above: Performed By: #### L 502.0250, L501.9985, L501.9910, L500.4100, L500.4050 #### [facility] [address] [place], [address] ALT [Catalytic activity/Vol] 125 U/L High 16-61 [facility] Comment on above: Performed By: #### L 502.0250, L501.9985, L501.9910, L500.4100, L500.4050 #### [facility] [address] [place], [address] AST [Catalytic activity/Vol] 71 U/L High 15-37 [facility] Comment on above: Performed By: #### L 502.0250, L501.9985, L501.9910, L500.4100, L500.4050 #### [facility] [address] [place], [address] Bilirubin [Mass/Vol] 0.70 mg/dL Normal 0.20-1.00 [facility] Comment on above: Result Comment: For patients on eltrombopag therapy, use of Dimension [place] TBIL is not recommended. Performed By: #### L 502.0250, L501.9985, L501.9910, L500.4100, L500.4050 #### [facility] [address] [place], [address] BUN/CRE 16.3 RATIO Normal 10-20 [facility] Comment on above: Performed By: #### L 502.0250, L501.9985, L501.9910, L500.4100, L500.4050 #### [facility] [address] [place], [address] CA,Total 9.6 mg/dL Normal 8.5-10.1 [facility] Comment on above: Performed By: #### L 502.0250, L501.9985, L501.9910, L500.4100, L500.4050 #### [facility] [address] [place], [address] Chloride [Moles/Vol] 106 mmol/L Normal 98-107 [facility] Comment on above: Performed By: #### L 502.0250, L501.9985, L501.9910, L500.4100, L500.4050 #### [facility] [address] [place], [address] CO2 [Moles/Vol] 25.0 mmol/L Normal 21.0-32.0 [facility] Comment on above: Performed By: #### L 502.0250, L501.9985, L501.9910, L500.4100, L500.4050 #### [facility] [address] [place], [address] Creatinine [Mass/Vol] 0.92 mg/dL Normal 0.70-1.30 [facility] Comment on above: Result Comment: The validity of the calculated GFR GFRAA in patients over 70 years has not been determined. Clinical correlation is essential. Performed By: #### L 502.0250, L501.9985, L501.9910, L500.4100, L500.4050 #### [facility] [address] [place], [address] EST GFR - AA 110 mL/min Normal >60 [facility] Comment on above: Result Comment: Afri can [place] GFR Calc Performed By: #### L 502.0250, L501.9985, L501.9910, L500.4100, L500.4050 #### [facility] [address] [place], [address] GAP 7 Normal 5-15 [facility] Comment on above: Performed By: #### L 502.0250, L501.9985, L501.9910, L500.4100, L500.4050 #### [facility] [address] [place], [address] GFR/1.73 sq M.predicted among non-blacks MDRD (S/P/Bld) [Vol rate/Area] 91 mL/min/{1.73_m2} Normal >60 [facility] Comment on above: Result Comment: Non- GFR Calc Performed By: #### L 502.0250, L501.9985, L501.9910, L500.4100, L500.4050 #### [facility] [address] [place], [address] Globulin (S) [Mass/Vol] 3.7 g/dL Normal 2.2-4.2 [facility] Comment on above: Performed By: #### L 502.0250, L501.9985, L501.9910, L500.4100, L500.4050 #### [facility] [address] [place], [address] Glucose [Mass/Vol] 112 mg/dL High 74-106 [facility] Comment on above: Result Comment: Fast ing Glucose result from 100 to 125 mg/dL suggests IMPAIRED HOMEOSTASIS per A.D.A. criteria. Performed By: #### L 502.0250, L501.9985, L501.9910, L500.4100, L500.4050 #### [facility] [address] [place], [address] Potassium [Moles/Vol] 4.0 mmol/L Normal 3.5-5.1 [facility] Comment on above: Performed By: #### L 502.0250, L501.9985, L501.9910, L500.4100, L500.4050 #### [facility] [address] [place], [address] Sodium [Moles/Vol] 138 mmol/L Normal 136-145 [facility] Comment on above: Performed By: #### L 502.0250, L501.9985, L501.9910, L500.4100, L500.4050 #### [facility] [address] [place], [address] T PROT 7.6 g/dL Normal 6.4-8.2 [facility] Comment on above: Performed By: #### L 502.0250, L501.9985, L501.9910, L500.4100, L500.4050 #### [facility] [address] [place], [address] Urea nitrogen [Mass/Vol] 15 mg/dL Normal 7-18 [facility] Comment on above: Performed By: #### L 502.0250, L501.9985, L501.9910, L500.4100, L500.4050 #### [facility] [address] [place], [address] Hemoglobin A1con 08-19-2024 HbA1c (Bld) [Mass fraction] 6.0 % High 3.8-5.6 [facility] Comment on above: Result Comment: Norm al < 5.7 % Prediabetic 5.7 - 6.4 % Diabetic >or= 6.5 % Please note range changes. Performed By: #### L 502.0250, L501.9985, L501.9910, L500.4100, L500.4050 #### [facility] [address] [place], [address] Lipid Profileon 08-19-2024 Cholesterol [Mass/Vol] 117 mg/dL Normal [address] [facility] Comment on above: Result Comment: <200 mg/dL Desirable 200-240 mg/dL Borderline >240 mg/dL High Risk Performed By: #### L 502.0250, L501.9985, L501.9910, L500.4100, L500.4050 #### [facility] [address] [place], [address] Cholesterol in HDL [Mass/Vol] 48 mg/dL Normal [facility] Comment on above: Result Comment: The drugs N-Acetylcysteine and Metamizole may falsely depress this assay. Reference Range HDL <40 mg/dL Low HDL Cholesterol HDL >or= 60 mg/dL High HDL Cholesterol Performed By: #### L 502.0250, L501.9985, L501.9910, L500.4100, L500.4050 #### [facility] [address] [place], [address] Cholesterol in LDL [Mass/Vol] 45 mg/dL Normal 0-130 [facility] Comment on above: Performed By: #### L 502.0250, L501.9985, L501.9910, L500.4100, L500.4050 #### [facility] [address] [place], [address] Cholesterol in VLDL [Mass/Vol] 24 mg/dL Normal 5-40 [facility] Comment on above: Performed By: #### L 502.0250, L501.9985, L501.9910, L500.4100, L500.4050 #### [facility] [address] [place], [address] Triglyceride [Mass/Vol] 119 mg/dL Normal [facility] Comment on above: Result Comment: The drugs N-Acetylcysteine and Metamizole may falsely depress this assay. Serum Triglycerides Reference Interval Normal <150 mg/dL Borderline high 150 - 199 mg/dL High 200 - 499 mg/dL Very High > or = 500 mg/dL Performed By: #### L 502.0250, L501.9985, L501.9910, L500.4100, L500.4050 #### [facility] [address] [place], [address] Microalb:Creat Ratio,Random URon 08-19-2024 Creatinine [Mass/Vol] 228.00 mg/dL Normal NO RANGE EST . [facility] Comment on above: Performed By: #### L 502.0250, L501.9985, L501.9910, L500.4100, L500.4050 #### [facility] [address] [place], [address] MALB:CRE 10.3 mg/g CRE Normal <30 mg/g CRE [facility] Comment on above: Performed By: #### L 502.0250, L501.9985, L501.9910, L500.4100, L500.4050 #### [facility] [address] [place], [address] MICROALBUMIN,UR 23.5 mg/L Normal NO RANGE EST. [facility] Comment on above: Performed By: #### L 502.0250, L501.9985, L501.9910, L500.4100, L500.4050 #### [facility] [address] [place], [address] PSA,Total - Annual Screenon 08-19-2024 PSA,TOT SCREEN 0.44 ng/mL Normal 0.00-4.00 [facility] Comment on above: Result Comment: This test was performed using the TPSA assay method for the [employer] chemistry system. Values obtained with different assay methods cannot be used interchangably. When changing PSA assays in the course of monitoring a patient, additional sequential testing should be carried out to confirm baseline values. Performed By: #### L 502.0250, L501.9985, L501.9910, L500.4100, L500.4050 #### [facility] [address] [place], [address] Basophil percentageOrdered B y: Melody Mary on 01-22-2024 Bilirubin [Mass/Vol] 0.40 mg/dL 0.20-1.00 [facility] Comment on above: For patients on eltr ombopag therapy, use of Dimension [place] TBIL is not recommended. Chloride [Moles/Vol] 108 mmol/L 98-107 [facility] Cholesterol [Mass/Vol] 146 mg/dL <[address] [facility] Comment on above: <200 mg/dL Desirable 200-240 mg/dL Borderline >240 mg/dL High Risk Glucose [Mass/Vol] 159 mg/dL 74-106 [facility] Comment on above: Fasting Glucose resu lt greater than or equal to 126 mg/dL suggests DIABETES MELLITUS per A.D.A. criteria. Potassium [Moles/Vol] 3.7 mmol/L 3.5-5.1 [facility] Protein [Mass/Vol] 7.8 g/dL 6.4-8.2 [facility] Sodium [Moles/Vol] 140 mmol/L 136-145 [facility] Triglyceride [Mass/Vol] 253 mg/dL <199 [facility] Comment on above: The drugs N-Acetylcy steine and Metamizole may falsely depress this assay.Serum Triglycerides Reference Interval Normal <150 mg/dL Borderline high 150 - 199 mg/dL High 200 - 499 mg/dL Very High > or = 500 mg/dL Laboratory - Chemistry and C hemistry - challengeOrdered By: Melody Mary on 01-22-2024 Albumin/Globulin [Mass ratio] 1.1 {ratio} 0.9-2.4 [facility] ALP [Catalytic activity/Vol] 53 U/L 45-117 [facility] ALT [Catalytic activity/Vol] 126 U/L 16-61 [facility] Cholesterol in HDL [Mass/Vol] 51 mg/dL >40 [facility] Comment on above: The drugs N-Acetylcy steine and Metamizole may falsely depress this assay. Reference Range HDL <40 mg/dL Low HDL Cholesterol HDL >or= 60 mg/dL High HDL Cholesterol Cholesterol in LDL [Mass/Vol] 44 mg/dL 0-130 [facility] CO2 [Moles/Vol] 27.0 mmol/L 21.0-32.0 [facility] Globulin (S) [Mass/Vol] 3.8 g/dL 2.2-4.2 [facility] Urea nitrogen/Creatinine [Mass ratio] 20.0 mg/mg 10-20 [facility] No Panel InformationOrdered By: Melody Mary on 01-22-2024 Estimated GFR (MDRD) Amer 106 mL/min >60 [facility] Comment on above: GFR Calc Estimated GFR (MDRD) Non-Af Amer 88 mL/min >60 [facility] Comment on above: Non- GFR Calc Urine Microalbumin/Creatinin e Ratio 22.5 mg/g CRE <30 [facility] VLDL Cholesterol 51 mg/dL 5-40 [facility] Serum or plasma calcium sal urement (mass/volume)Ordered By: Meldoy Mary on 01-22-2024 Calcium [Mass/Vol] 9.4 mg/dL 8.5-10.1 [facility] Serum or plasma creatinine m easurement (mass/volume)Ordered By: Melody Mary on 01-22-2024 Creatinine [Mass/Vol] 0.95 mg/dL 0.70-1.30 [facility] Comment on above: The validity of the calculated GFR & GFRAA in patients over 70 years has not been determined. Clinical correlation is essential. Serum or plasma urea nitroge n measurement (mass/volume)Ordered By: Melody Mary on 01-22-2024 Urea nitrogen [Mass/Vol] 19 mg/dL 7-18 [facility] Thin prep Papanicolaou smear with manual screeningOrdered By: Melody Mary on 01-22-2024 Thin prep Papanicolaou smear with manual screening 4.0 g/dL 3.2-5.0 [facility] Thin prep Papanicolaou smear with manual screening 61 U/L 15-37 [facility] Thin prep Papanicolaou smear with manual screening 5 5-15 [facility] Thin prep Papanicolaou smear with manual screening 46.6 mg/L NO RANGE EST. [facility] Urine creatinine measurement (mass/volume)Ordered By: Melody Mary on 01-22-2024 Creatinine (U) [Mass/Vol] 207.00 mg/dL NO RANGE EST. [facility] Whole blood hemoglobin A1c/t otal hemoglobin ratio (mass fraction)Ordered By: Melody Mary on 01-22-2024 HbA1c (Bld) [Mass fraction] 6.3 % 3.8-5.6 [facility] Comment on above: Normal < 5.7 % Predi abetic 5.7 - 6.4 % Diabetic >or= 6.5 % Please note range changes. Basophil percentageOrdered B y: Melody Mary on 07-14-2023 Bilirubin [Mass/Vol] 0.50 mg/dL 0.20-1.00 [facility] Comment on above: For patients on eltr ombopag therapy, use of Dimension [place] TBIL is not recommended. Chloride [Moles/Vol] 104 mmol/L 98-107 [facility] Cholesterol [Mass/Vol] 185 mg/dL <[address] [facility] Comment on above: <200 mg/dL Desirable 200-240 mg/dL Borderline >240 mg/dL High Risk Glucose [Mass/Vol] 120 mg/dL 74-106 [facility] Comment on above: Fasting Glucose resu lt from 100 to 125 mg/dL suggests IMPAIRED HOMEOSTASIS per A.D.A. criteria. Potassium [Moles/Vol] 4.0 mmol/L 3.5-5.1 [facility] Protein [Mass/Vol] 8.0 g/dL 6.4-8.2 [facility] Sodium [Moles/Vol] 139 mmol/L 136-145 [facility] Triglyceride [Mass/Vol] 156 mg/dL <199 [facility] Comment on above: The drugs N-Acetylcy steine and Metamizole may falsely depress this assay.Serum Triglycerides Reference Interval Normal <150 mg/dL Borderline high 150 - 199 mg/dL High 200 - 499 mg/dL Very High > or = 500 mg/dL WBC (Bld) [#/Vol] 6.9 10*3/uL 4.4-11.0 [facility] Blood erythrocytes count (nu mber/volume)Ordered By: Melody Mary on 07-14-2023 RBC (Bld) [#/Vol] 4.78 10*6/uL 4.6-6.2 [facility] Blood hemoglobin measurement (mass/volume)Ordered By: Melody Mary on 07-14-2023 Hemoglobin (Bld) [Mass/Vol] 14.9 g/dL 13.0-16.5 [facility] Blood platelet mean volumeOr dered By: Melody Mary on 07-14-2023 Platelet mean volume (Bld) [Entitic vol] 9.8 fL 6.2-12.0 [facility] Determination of erythrocyte mean corpuscular volume (MCV)Ordered By: Melody Mary on 07-14-2023 MCV (RBC) [Entitic vol] 91.6 fL 80-94 [facility] Hematocrit Auto (Bld) [Volum e fraction]Ordered By: Melody Mary on 07-14-2023 Hematocrit (Bld) [Volume fraction] 43.8 % 40-54 [facility] - Chemistry and C hemistry - challengeOrdered By: Melody Mary on 07-14-2023 ALP [Catalytic activity/Vol] 59 U/L 45-117 [facility] ALT [Catalytic activity/Vol] 201 U/L 16-61 [facility] CO2 [Moles/Vol] 27.0 mmol/L 21.0-32.0 [facility] Globulin (S) [Mass/Vol] 4.1 g/dL 2.2-4.2 [facility] Urea nitrogen/Creatinine [Mass ratio] 17.6 mg/mg 10-20 [facility] - Hematology and Cell countsOrdered By: Melody Mary on 07-14-2023 Erythrocyte distribution width (RBC) [Entitic vol] 42.3 fL 35.1-43.9 [facility] Erythrocyte distribution width (RBC) [Ratio] 12.6 % 11.6-14.6 [facility] MCH (RBC) [Entitic mass] 31.2 pg 27.0-32.0 [facility] MCHC Auto (RBC) [Mass/Vol]Or dered By: Melody Mary on 07-14-2023 MCHC (RBC) [Mass/Vol] 34.0 g/dL 32-36 [facility] No Panel InformationOrdered By: Melody Mary on 07-14-2023 Estimated GFR (MDRD) Amer 98 mL/min >60 [facility] Comment on above: GFR Calc Estimated GFR (MDRD) Non-Af Amer 81 mL/min >60 [facility] Comment on above: Non- GFR Calc Prostate Specific Antigen Screen 0.42 ng/mL 0.00-4.00 [facility] Comment on above: This test was perfor med using the TPSA assay method for the[facility]. Values obtained with differentassay methods cannot be used interchangably.When changing PSA assays in the course of monitoring apatient, additional sequential testing should be carriedout to confirm baseline values. Platelets bldOrdered By: Ad Mary on 07-14-2023 Platelets (Bld) [#/Vol] 216 10*3/uL 150-450 [facility] Serum or plasma albumin sal urement (mass/volume)Ordered By: Melody Mary on 07-14-2023 Albumin [Mass/Vol] 3.9 g/dL 3.2-5.0 [facility] Serum or plasma albumin/glob ulin mass ratioOrdered By: Melody Mary on 07-14-2023 Albumin/Globulin [Mass ratio] 1.0 {ratio} 0.9-2.4 [facility] Serum or plasma calcium sal urement (mass/volume)Ordered By: Melody Mary on 07-14-2023 Calcium [Mass/Vol] 9.2 mg/dL 8.5-10.1 [facility] Serum or plasma cholesterol in HDL measurement (mass/volume)Ordered By: Melody Mary on 07-14-2023 Cholesterol in HDL [Mass/Vol] 54 mg/dL >40 [facility] Comment on above: The drugs N-Acetylcy steine and Metamizole may falsely depress this assay. Reference Range HDL <40 mg/dL Low HDL Cholesterol HDL >or= 60 mg/dL High HDL Cholesterol Serum or plasma cholesterol in VLDL measurement (mass/volume)Ordered By: Melody Mary on 07-14-2023 Cholesterol in VLDL [Mass/Vol] 31 mg/dL 5-40 [facility] Serum or plasma creatinine m easurement (mass/volume)Ordered By: Melody Mary on 07-14-2023 Creatinine [Mass/Vol] 1.02 mg/dL 0.70-1.30 [facility] Comment on above: The validity of the calculated GFR & GFRAA in patients over 70 years has not been determined. Clinical correlation is essential. Serum or plasma low density lipoprotein (LDL) cholesterol measurement (mass/volume)Ordered By: Melody Mary on 07-14-2023 Cholesterol in LDL [Mass/Vol] 100 mg/dL 0-130 [facility] Serum or plasma urea nitroge n measurement (mass/volume)Ordered By: Melody Mary on 07-14-2023 Urea nitrogen [Mass/Vol] 18 mg/dL 7-18 [facility] Thin prep Papanicolaou smear with manual screeningOrdered By: Melody Mary on 07-14-2023 Thin prep Papanicolaou smear with manual screening 83 U/L 15-37 [facility] Thin prep Papanicolaou smear with manual screening 8 5-15 [facility] Whole blood hemoglobin A1c/t otal hemoglobin ratio (mass fraction)Ordered By: Melody Mary on 07-14-2023 HbA1c (Bld) [Mass fraction] 5.8 % 3.8-5.6 [facility] Comment on above: Normal < 5.7 % Predi abetic 5.7 - 6.4 % Diabetic >or= 6.5 % Please note range changes. Andrew 02-24-2023 DINESHN Telephone (CAUPDO) SAKSHI KELLEY ([id number]) 1970 M Date Time Provider Department 02/24/23 ELENA STRICKLAND During your visit today, we recorded the following information about you: Meggan Avelar 02/24/2023 2:37 PM Signed ----- Message from Elena Strickland APRN.RFID ANALYST sent at 02/24/2023 11:16 AM EDT ----- Please let patient know stress test was normal. No signs of damage. Sima Dias MA 02/24/2023 3:33 PM Signed Patient was called and given the message of the provider. Patient voiced understanding of the results. Allergies As of Date: 02/24/2023 Noted Allergy Reaction MORPHINE 10/30/2020 16 - Unknown Date Reviewed: 01/29/2023 Reviewed by: Ebony Marie RN - Fully Assessed Reason for Visit: Results [95] Cmt: Stress test Prescriptions as of 02/24/2023 - meloxicam (MOBIC) 15 mg tablet Take 15 mg by mouth once daily. - metoprolol tartrate, short acting, (LOPRESSOR) 50 mg tablet Take 1 tablet by mouth once daily. - ramipril (ALTACE) 10 mg capsule Take 10 mg by mouth once daily. - apixaban (ELIQUIS) 5 mg tab(s) Take 5 mg by mouth twice daily. - benzonatate (TESSALON PERLE) 100 mg capsule TAKE 1 CAPSULE BY MOUTH THREE TIMES A DAY NEEDED FOR COUGH - clopidogrel (PLAVIX) 75 mg tablet TAKE 1 TABLET BY MOUTH EVERYDAY AT BEDTIME - docusate sodium (COLACE) 100 mg capsule Take 100 mg by mouth twice daily. - magnesium oxide (MAG-OX) 400 mg (241.3 mg magnesium) tablet Take 1 tablet by mouth once daily. - rosuvastatin (CRESTOR) 20 mg tablet Take 20 mg by mouth once daily. - aspirin (ASPIR-81 ORAL) Take by mouth once daily. - atorvastatin (LIPITOR) 40 mg tablet Take 1 tablet by mouth once daily. Problem List As Of Date 02/24/2023 Noted Resolved History of cardiovascular stress test [Z92.89] 10/12/2020 Hospital discharge follow-up [Z09] 10/30/2020 Mixed hyperlipidemia [E78.2] 10/30/2020 06/08/2021 Essential hypertension, benign [I10] 10/30/2020 Nicotine dependence, cigarettes, uncomplicated *10/30/2020 Hx of CABG [Z95.1] 05/21/2021 History of left heart catheterization [Z98.890] 05/20/2021 Hypertension [I10] 10/28/2021 Hyperlipidemia LDL goal <70 [E78.5] Cigarette smoker [F17.210] 06/08/2021 Former smoker [Z87.891] 08/22/2021 History of exercise stress test [Z92.89] 05/13/2021 Hyperlipidemia [E78.5] 01/23/2022 Encounter Status:Closed by SIMA DIAS on 02/24/23 Normal [facility] NM SHIRA SPECT MULTI [id number] 02-24-2023 NM SHIRA SPECT MULTI [id number] [place] [address] Name: SAKSHI KELLEY Phys: LOS FULLER D.O. : [birth year] Age: 53 Sex: M Acct: [id number] Loc: CARD Exam Date: 02/24/23 Status: [facility] Radiology No.: Unit Number: [id number] Exam # Type/Exam [id number] NM / NM SHIRA SPECT MULTI [id number] EXAMINATION: CARDIAC SPECT02/24/2023 8:59 am TECHNIQUE: The patient received an intravenous injection of 10.2 mCi of Tc-99m Myoview and resting emission tomographic (SPECT) images of the myocardium were acquired. The patient then underwent treadmill stress exercising to 95 % of MPHR and achieving 10.1 METS, followed by an additional injection of 34.3 mCi of Tc-99m Myoview. Stress phase SPECT images of the myocardium were then acquired. These included ECG-gated images to assess and quantify ventricular function. COMPARISON: October 12, 2020 [facility] HISTORY: ORDERING SYSTEM PROVIDED HISTORY: TECHNOLOGIST PROVIDED HISTORY: Reason for Exam: CHEST PAIN intermittent chest pain, high cholesterol, prior CABG FINDINGS: Minimally diminished activity throughout the inferior wall demonstrates normal motion and thickening, most compatible with diaphragm attenuation artifact. Otherwise, stress and rest images demonstrates grossly normal perfusion through the LV myocardium, without evidence of infarct or stress-induced ischemia. The LV chamber is normal in size. Normal TID value. Gated rest and post-stress images reveals normal myocardial contractility. The estimated LVEF is 64%. IMPRESSION: 1. No evidence of infarct or ischemia. 2. LV chamber is normal in size. 3. Normal LV wall motion, with LVEF of 64%. Electronically signed By Chantelle Davis DO 02/24/2023 9:18:49 AM EST Workstation ID : [id number] < > Reported By: CHANTELLE DAVIS D.O. Signed In Fluency By: CHANTELLE DAVIS D.O. << Signature on File>> Reported By: CHANTELLE DAVIS D.O. Signed By: CHANTELLE DAVIS D.O. Tests performed at: [place] [address] Normal [facility] NUCLEAR STRESS TEST(Wt < 440 #)on 02-24-2023 NUCLEAR STRESS TEST(Wt < 440#) [place] [address] HEALTH INFORMATION MANAGEMENT CARDIOLOGY REPORT Patient: SAKSHI KELLEY KATELYN M C.N.PJosué [id number] [age] M Status: REG CLI CARD Exam # Type/Exam [id number] CARD / NUCLEAR STRESS TEST(Wt < 440#) DATE OF SERVICE: 02/24/2023 PHYSICIAN: Dr. Fuller. PROTOCOL: Palomo. REASON FOR TEST: Chest pain. MEDICAL THERAPY: 1. Meloxicam. 2. Rosuvastatin. 3. Avapro. 4. Aspirin. HEMODYNAMICS: Resting blood pressure 128/80, resting heart rate of 75. Maximum blood pressure 168/78, maximum heart rate was 158. Target was 142, which was achieved. Patient exercised a total of 8 minutes, which is 10.1 METs. Double product 23,700. He achieved 95% of maximum predicted heart rate. EKG: Shows normal sinus rhythm. No arrhythmias were appreciated. CONCLUSION: The patient completed stress test via Palomo protocol. Exercise tolerance excellent. EKG without arrhythmias. Nuclear report reported separately by radiologist. The supervising and interpreting provider, Elena Strickland CNP, is immediately available and in the department. Dr. Los Fuller is available by phone for collaboration if needed. Report#: Dict ID [id number] / Int ID [id number] 02/25/23 1445 ELENA STRICKLAND C.N.P. cc: LOS FULLER D.O.; MELODY MARY C.N.P. << Signature on File>> Reported By: ELENA STRICKLANDNCharlotte Signed By: ELENA STRICKLAND C.N.P. Tests performed at: [place] [address] [facility] No Panel Informationon 02-24 [facility] CNOVon 01-29-2023 CNOV Office Visit (CAUPDO ) SAKSHI KELLEY ([id number]) 1970 M Date Time Provider Department 01/29/23 3:30 PM LOS FULLER During your visit today, we recorded the following information about you: Pulse Blood pressure Weight Height 77/minute 138/82 84.4 kg 1.803 m Los Fuller DO 02/01/2023 4:27 PM Signed Referring Provider: Los Fuller DO Date: January 29, 2023 Chief Complaint: [...] posterior descending. Done by Dr. Davila @ [facility] Hyperlipidemia Hypertension No past surgical history on [...] and weakness. Hematological: Does not bruise/bleed easily. Psychiatric/Behaviora l: Negative for confusion and hallucinations. Vitals: BP 138/82 (BP Site: Left Arm, BP Position: Sitting) Pulse 77 Ht 180.3 cm (5' 11) Wt 84.4 kg (186 lb) BMI 25.94 kg/m? PHYSICAL EXAMINATION: BP 138/82 (BP Site: Left Arm, BP Position: Sitting) Pulse 77 Ht 180.3 cm (5' 11) Wt 84.4 kg (186 lb) BMI 25.94 [...] the right side and 2+ on the (more content not included)... Normal [facility] CNPNon 01-29-2023 CNPN Telephone (CAUPDO) SAKSHI KELLEY ([id number]) 1970 M Date Time Provider Department 01/29/23 [facility] During your visit today, we recorded the following information about you: Ebony Marie RN 01/29/2023 4:14 PM Signed Prior authorization request for stress test to be done at [facility] in a month is being submitted for review. Please notify clerical staff when ready. SAI Mckeon 02/02/2023 9:05 AM Signed Per LENNIE, Approved for [facility]; Auth # [id number] 02/02/2023-03/04/2023 Donell Fuller 02/03/2023 11:09 AM Signed Scheduled stress at [facility] 02/24 at 630 am Patient advised and Order faxed Allergies As of Date: 01/29/2023 Noted Allergy Reaction MORPHINE 10/30/2020 16 - Unknown Date Reviewed: 01/29/2023 Reviewed by: Ebony Marie RN - Fully Assessed Reason for Visit: PA for stress test [Other] Prescriptions as of 02/03/2023 - meloxicam (MOBIC) 15 mg tablet Take 15 mg by mouth once daily. - metoprolol tartrate, short acting, (LOPRESSOR) 50 mg tablet Take 1 tablet by mouth once daily. - ramipril (ALTACE) 10 mg capsule Take 10 mg by mouth once daily. - apixaban (ELIQUIS) 5 mg tab(s) Take 5 mg by mouth twice daily. - benzonatate (TESSALON PERLE) 100 mg capsule TAKE 1 CAPSULE BY MOUTH THREE TIMES A DAY NEEDED FOR COUGH - clopidogrel (PLAVIX) 75 mg tablet TAKE 1 TABLET BY MOUTH EVERYDAY AT BEDTIME - docusate sodium (COLACE) 100 mg capsule Take 100 mg by mouth twice daily. - magnesium oxide (MAG-OX) 400 mg (241.3 mg magnesium) tablet Take 1 tablet by mouth once daily. - rosuvastatin (CRESTOR) 20 mg tablet Take 20 mg by mouth once daily. - aspirin (ASPIR-81 ORAL) Take by mouth once daily. - atorvastatin (LIPITOR) 40 mg tablet Take 1 tablet by mouth once daily. Problem List As Of Date 01/29/2023 Noted Resolved History of cardiovascular stress test [Z92.89] 10/12/2020 Hospital discharge follow-up [Z09] 10/30/2020 Mixed hyperlipidemia [E78.2] 10/30/2020 06/08/2021 Essential hypertension, benign [I10] 10/30/2020 Nicotine dependence, cigarettes, uncomplicated *10/30/2020 Hx of CABG [Z95.1] 05/21/2021 History of left heart catheterization [Z98.890] 05/20/2021 Hypertension [I10] 10/28/2021 Hyperlipidemia LDL goal <70 [E78.5] Cigarette smoker [F17.210] 06/08/2021 Former smoker [Z87.891] 08/22/2021 History of exercise stress test [Z92.89] 05/13/2021 Hyperlipidemia [E78.5] 01/23/2022 Encounter Status:Closed by SHEYLA FULLER on 02/03/23 Normal [facility] ECG COMPLETEon 01-29-2023 ECG COMPLETE Ventricular Rate : 7 7 BPM Atrial Rate : 77 BPM P-R Interval : 178 ms QRS Duration : 88 ms Q-T Interval : 370 ms QTC Calculation(Bazett) : 418 ms Calculated P [place] : 43 degrees Calculated R [place] : 74 degrees Calculated T [place] : 49 degrees NORMAL SINUS RHYTHM NORMAL ECG NO PREVIOUS ECGS AVAILABLE Confirmed by LOS FULLER DO ([id number]) on 02/10/2023 5:24:35 PM NAME : SAKSHI KELLEY PID : [id number] : 1970 Gender : Male Race : ORD : [id number] Procedure Date : Jan 29 2023 15:46:43 Edit Date : Feb 10 2023 17:24:36 Diagnosis: NORMAL SINUS RHYTHM NORMAL ECG NO PREVIOUS ECGS AVAILABLE Confirmed by LOS FULLER DO ([id number]) on 02/10/2023 5:24:35 PM Test Reason : Location : 606 : [facility] Overread By : LOS FULLER DO Edited By : LOS FULLER DO Referred By : LOS FULLER Acquired by : , Normal [facility] Basophil percentageOrdered B y: Melody Usman on 01-02-2023 Bilirubin [Mass/Vol] 0.60 mg/dL 0.20-1.00 [facility] Comment on above: For patients on eltr ombopag therapy, use of Dimension [place] TBIL is not recommended. Chloride [Moles/Vol] 104 mmol/L 98-107 [facility] Cholesterol [Mass/Vol] 148 mg/dL <[address] [facility] Comment on above: <200 mg/dL Desirable 200-240 mg/dL Borderline >240 mg/dL High Risk Glucose [Mass/Vol] 120 mg/dL 74-106 [facility] Comment on above: Fasting Glucose resu lt from 100 to 125 mg/dL suggests IMPAIRED HOMEOSTASIS per A.D.A. criteria. Potassium [Moles/Vol] 4.2 mmol/L 3.5-5.1 [facility] Protein [Mass/Vol] 7.9 g/dL 6.4-8.2 [facility] Sodium [Moles/Vol] 139 mmol/L 136-145 [facility] Triglyceride [Mass/Vol] 119 mg/dL <199 [facility] Comment on above: The drugs N-Acetylcy steine and Metamizole may falsely depress this assay.Serum Triglycerides Reference Interval Normal <150 mg/dL Borderline high 150 - 199 mg/dL High 200 - 499 mg/dL Very High > or = 500 mg/dL Laboratory - Chemistry and C hemistry - challengeOrdered By: Melody Mary on 01-02-2023 ALP [Catalytic activity/Vol] 46 U/L 45-117 [facility] ALT [Catalytic activity/Vol] 116 U/L 16-61 [facility] CO2 [Moles/Vol] 28.0 mmol/L 21.0-32.0 [facility] Globulin (S) [Mass/Vol] 4.0 g/dL 2.2-4.2 [facility] Urea nitrogen/Creatinine [Mass ratio] 19.0 mg/mg 10-20 [facility] No Panel InformationOrdered By: Melody Mary on 01-02-2023 Estimated GFR (MDRD) Amer 95 mL/min >60 [facility] Comment on above: GFR Calc Estimated GFR (MDRD) Non-Af Amer 79 mL/min >60 [facility] Comment on above: Non- GFR Calc Serum or plasma albumin sal urement (mass/volume)Ordered By: Melody Mary on 01-02-2023 Albumin [Mass/Vol] 3.9 g/dL 3.2-5.0 [facility] Serum or plasma albumin/glob ulin mass ratioOrdered By: Melody Mary on 01-02-2023 Albumin/Globulin [Mass ratio] 1.0 {ratio} 0.9-2.4 [facility] Serum or plasma calcium sal urement (mass/volume)Ordered By: Melody Mary on 01-02-2023 Calcium [Mass/Vol] 9.4 mg/dL 8.5-10.1 [facility] Serum or plasma cholesterol in HDL measurement (mass/volume)Ordered By: Melody Mary on 01-02-2023 Cholesterol in HDL [Mass/Vol] 46 mg/dL >40 [facility] Comment on above: The drugs N-Acetylcy steine and Metamizole may falsely depress this assay. Reference Range HDL <40 mg/dL Low HDL Cholesterol HDL >or= 60 mg/dL High HDL Cholesterol Serum or plasma cholesterol in VLDL measurement (mass/volume)Ordered By: Melody Mary on 01-02-2023 Cholesterol in VLDL [Mass/Vol] 24 mg/dL 5-40 [facility] Serum or plasma creatinine m easurement (mass/volume)Ordered By: Melody Mary on 01-02-2023 Creatinine [Mass/Vol] 1.05 mg/dL 0.70-1.30 [facility] Comment on above: The validity of the calculated GFR & GFRAA in patients over 70 years has not been determined. Clinical correlation is essential. Serum or plasma low density lipoprotein (LDL) cholesterol measurement (mass/volume)Ordered By: Melody Mary on 01-02-2023 Cholesterol in LDL [Mass/Vol] 78 mg/dL 0-130 [facility] Serum or plasma urea nitroge n measurement (mass/volume)Ordered By: Melody Mary on 01-02-2023 Urea nitrogen [Mass/Vol] 20 mg/dL 7-18 [facility] Thin prep Papanicolaou smear with manual screeningOrdered By: Melody Mary on 01-02-2023 Thin prep Papanicolaou smear with manual screening 64 U/L 15-37 [facility] Thin prep Papanicolaou smear with manual screening 7 5-15 [facility] Basophil percentageon 2021 Bilirubin [Mass/Vol] 0.30 mg/dL 0.20-1.00 [facility] Work Phone: Comment on above: For patients on eltr ombopag therapy, use of Dimension [place] TBIL is not recommended. Chloride [Moles/Vol] 107 mmol/L 98-107 [facility] Work Phone: Cholesterol [Mass/Vol] 163 mg/dL <[address] [facility] Work Phone: Comment on above: <200 mg/dL Desirable 200-240 mg/dL Borderline >240 mg/dL High Risk Glucose [Mass/Vol] 109 mg/dL 74-106 [facility] Work Phone: Comment on above: Fasting Glucose resu lt from 100 to 125 mg/dL suggests IMPAIRED HOMEOSTASIS per A.D.A. criteria. Potassium [Moles/Vol] 4.4 mmol/L 3.5-5.1 [facility] Work Phone: Protein [Mass/Vol] 7.8 g/dL 6.4-8.2 [facility] Work Phone: Sodium [Moles/Vol] 139 mmol/L 136-145 [facility] Work Phone: Triglyceride [Mass/Vol] 175 mg/dL <199 [facility] Work Phone: Comment on above: The drugs N-Acetylcy steine and Metamizole may falsely depress this assay.Serum Triglycerides Reference Interval Normal <150 mg/dL Borderline high 150 - 199 mg/dL High 200 - 499 mg/dL Very High > or = 500 mg/dL WBC (Bld) [#/Vol] 7.3 10*3/uL 4.4-11.0 [facility] Work Phone: Blood erythrocytes count (nu mber/volume)on 05-14-2022 RBC (Bld) [#/Vol] 4.74 10*6/uL 4.6-6.2 [facility] Work Phone: Blood hemoglobin measurement (mass/volume)on 05-14-2022 Hemoglobin (Bld) [Mass/Vol] 14.6 g/dL 13.0-16.5 [facility] Work Phone: Blood platelet mean volumeon 05-14-2022 Platelet mean volume (Bld) [Entitic vol] 10.3 fL 6.2-12.0 [facility] Work Phone: Determination of erythrocyte mean corpuscular volume (MCV)on 05-14-2022 MCV (RBC) [Entitic vol] 90.9 fL 80-94 [facility] Work Phone: Hematocrit Auto (Bld) [Volum e fraction]on 05-14-2022 Hematocrit (Bld) [Volume fraction] 43.1 % 40-54 [facility] Work Phone: Laboratory - Chemistry and C hemistry - challengeon 05-14-2022 ALP [Catalytic activity/Vol] 63 U/L 45-117 [facility] Work Phone: ALT [Catalytic activity/Vol] 172 U/L 16-61 [facility] Work Phone: CO2 [Moles/Vol] 28.0 mmol/L 21.0-32.0 [facility] Work Phone: Globulin (S) [Mass/Vol] 3.8 g/dL 2.2-4.2 [facility] Work Phone: Urea nitrogen/Creatinine [Mass ratio] 23.5 mg/mg 10-20 [facility] Work Phone: Laboratory - Hematology and Cell countson 05-14-2022 Erythrocyte distribution width (RBC) [Entitic vol] 41.0 fL 35.1-43.9 [facility] Work Phone: Erythrocyte distribution width (RBC) [Ratio] 12.6 % 11.6-14.6 [facility] Work Phone: MCH (RBC) [Entitic mass] 30.8 pg 27.0-32.0 [facility] Work Phone: MCHC Auto (RBC) [Mass/Vol]on 05-14-2022 MCHC (RBC) [Mass/Vol] 33.9 g/dL 32-36 [facility] Work Phone: No Panel Informationon 05-14 Estimated GFR (MDRD) Amer 109 mL/min >60 [facility] Work Phone: Comment on above: GFR Calc Estimated GFR (MDRD) Non-Af Amer 90 mL/min >60 [facility] Work Phone: Comment on above: Non- GFR Calc Prostate Specific Antigen Screen 0.43 ng/mL 0.00-4.00 [facility] Work Phone: Comment on above: This test was perfor med using the TPSA assay method [facility]. Values obtained with differentassay methods cannot be used interchangably.When changing PSA assays in the course of monitoring apatient, additional sequential testing should be carriedout to confirm baseline values. Platelets bldon 05-14-2022 Platelets (Bld) [#/Vol] 220 10*3/uL 150-450 [facility] Work Phone: Serum or plasma albumin sal urement (mass/volume)on 05-14-2022 Albumin [Mass/Vol] 4.0 g/dL 3.2-5.0 [facility] Work Phone: Serum or plasma albumin/glob ulin mass ratioon 05-14-2022 Albumin/Globulin [Mass ratio] 1.1 {ratio} 0.9-2.4 [facility] Work Phone: Serum or plasma calcium sal urement (mass/volume)on 05-14-2022 Calcium [Mass/Vol] 9.2 mg/dL 8.5-10.1 [facility] Work Phone: Serum or plasma cholesterol in HDL measurement (mass/volume)on 05-14-2022 Cholesterol in HDL [Mass/Vol] 46 mg/dL >40 [facility] Work Phone: Comment on above: The drugs N-Acetylcy steine and Metamizole may falsely depress this assay. Reference Range HDL <40 mg/dL Low HDL Cholesterol HDL >or= 60 mg/dL High HDL Cholesterol Serum or plasma cholesterol in VLDL measurement (mass/volume)on 05-14-2022 Cholesterol in VLDL [Mass/Vol] 35 mg/dL 5-40 [facility] Work Phone: Serum or plasma creatinine m easurement (mass/volume)on 05-14-2022 Creatinine [Mass/Vol] 0.94 mg/dL 0.70-1.30 [facility] Work Phone: Comment on above: The validity of the calculated GFR & GFRAA in patients over 70 years has not been determined. Clinical correlation is essential. Serum or plasma low density lipoprotein (LDL) cholesterol measurement (mass/volume)on 05-14-2022 Cholesterol in LDL [Mass/Vol] 82 mg/dL 0-130 [facility] Work Phone: Serum or plasma urea nitroge n measurement (mass/volume)on 05-14-2022 Urea nitrogen [Mass/Vol] 22 mg/dL 7-18 [facility] Work Phone: Thin prep Papanicolaou smear with manual screeningon 05-14-2022 Thin prep Papanicolaou smear with manual screening 76 U/L 15-37 [facility] Work Phone: Thin prep Papanicolaou smear with manual screening 4 5-15 [facility] Work Phone: Whole blood hemoglobin A1c/t otal hemoglobin ratio (mass fraction)on 05-14-2022 HbA1c (Bld) [Mass fraction] 5.9 % 3.8-5.6 [facility] Work Phone: Comment on above: Normal < 5.7 % Predi abetic 5.7 - 6.4 % Diabetic >or= 6.5 % Please note range changes. CBCon 06-18-2021 Erythrocyte distribution width (RBC) [Ratio] 13.6 % Normal 11-14.5 [facility] Comment on above: Performed By: #### L 500.55192, L500.44763, L500.31950, L500.10158 #### [facility] [address] [place] [address] Hematocrit (Bld) [Volume fraction] 37.6 % Low 41.0-53.0 [facility] Comment on above: Performed By: #### L 500.12972, L500.43792, L500.62515, L500.26414 #### [facility] [address] [place] [address] Hemoglobin (Bld) [Mass/Vol] 12.4 g/dL Low 13.5-17.5 [facility] Comment on above: Performed By: #### L 500.98965, L500.44709, L500.32291, L500.10332 #### [facility] [address] [place] [address] MCHC (RBC) [Mass/Vol] 33.0 g/dL Normal 32.0-36.0 [facility] Comment on above: Performed By: #### L 500.50712, L500.28229, L500.86549, L500.51002 #### [facility] [address] [place] [address] MCV (RBC) [Entitic vol] 89.3 fL Normal 80.0-99.0 [facility] Comment on above: Performed By: #### L 500.30850, L500.81469, L500.06697, L500.62250 #### [facility] [address] [place] [address] Nucleated RBC/100 WBC (Bld) [Ratio] 0.0 % Normal Less than 1 [facility] Comment on above: Performed By: #### L 500.84730, L500.00786, L500.70394, L500.80954 #### [facility] [address] [place] [address] Platelet mean volume (Bld) [Entitic vol] 9.4 fL Normal 9.4-12.4 [facility] Comment on above: Performed By: #### L 500.54214, L500.41893, L500.70206, L500.69400 #### [facility] [address] [place] [address] PLT 255 K/CU MM Normal 150-450 [facility] Comment on above: Performed By: #### L 500.32479, L500.99190, L500.38124, L500.43925 #### [facility] [address] [place] [address] RBC 4.21 M/CU MM Low 4.50-6.00 [facility] Comment on above: Performed By: #### L 500.95803, L500.40670, L500.78817, L500.26772 #### [facility] [address] [place] [address] WBC 7.4 K/CUMM Normal 4.5-11.0 [facility] Comment on above: Performed By: #### L 500.09319, L500.48752, L500.95613, L500.52451 #### [facility] [place] [address] CHEST PA/AP AND LATERALon CHEST PA/AP AND LATERAL CHEST PA/AP & LATERAL Ordering Physician: Hunter Davila MD 06/18/2021 7:26 AM CHEST Clinical Statement: Coronary artery disease, post open heart surgery FINDINGS: PA and lateral chest images were obtained and compared to a portable study dated 05/24/2021. The patient is post open heart surgery. The heart is normal in size. The mediastinum is unremarkable. There is no pneumothorax. There is blunting of the left costophrenic angle having the appearance of pleural thickening. The right lung is clear. There is scarring in the left upper lobe. IMPRESSION: Blunting of the left costophrenic angle having the appearance of thickening. No acute abnormalities. ---- Electronic Signature on File ---- Signed By: Ezekiel Fan MD FACR [email or web address] Dictated: 06/18/2021 7:36 AM Signed: 06/18/2021 7:38 AM Reported By: EZEKIEL FAN M.D. Signed By: EZEKIEL FAN M.D. Normal [facility] CMPon 06-18-2021 Albumin [Mass/Vol] 3.6 g/dL Normal 3.2-5.0 [facility] Comment on above: Performed By: #### L 500.17553, L500.88095, L500.32118, L500.02961 #### [facility] [place] [address] Albumin/Globulin [Mass ratio] 0.9 {ratio} Normal 0.8-2.0 [facility] Comment on above: Performed By: #### L 500.69330, L500.90324, L500.31624, L500.06613 #### [facility] [place] [address] ALK PHOS 103 U/L Normal 45-117 [facility] Comment on above: Performed By: #### L 500.67898, L500.81236, L500.54692, L500.29397 #### [facility] [place] [id number] ALT [Catalytic activity/Vol] 52 U/L Normal 13-61 [facility] Comment on above: Result Comment: RESU LTS MAY BE FALSELY DEPRESSED AFTER THE ADMINISTRATION OF SULFASALAZINE AND/OR SULFAPYRIDINE. Performed By: #### L 500.65037, L500.11434, L500.77315, L500.14533 #### [facility] [address] [place] [address] Anion gap [Moles/Vol] 5 mmol/L Normal 5-16 [facility] Comment on above: Performed By: #### L 500.39699, L500.66529, L500.81083, L500.26918 #### [facility] [address] [place] [address] AST [Catalytic activity/Vol] 37 U/L High 8-34 [facility] Comment on above: Result Comment: RESU LTS MAY BE FALSELY DEPRESSED AFTER THE ADMINISTRATION OF SULFASALAZINE AND/OR SULFAPYRIDINE. Performed By: #### L 500.30151, L500.00658, L500.06390, L500.92928 #### [facility] [address] [place] [address] BILI TOTAL 0.20 MG/DL Normal 0.2-1.0 [facility] Comment on above: Performed By: #### L 500.46536, L500.10165, L500.97186, L500.02903 #### [facility] [address] [place] [address] Calcium [Mass/Vol] 9.6 mg/dL Normal 8.5-10.5 [facility] Comment on above: Result Comment: NOTE NEW NORMAL RANGE DUE TO REAGENT CHANGE Performed By: #### L 500.00160, L500.18553, L500.81364, L500.05091 #### [facility] [address] [place] [address] Chloride [Moles/Vol] 108 mmol/L High 98-107 [facility] Comment on above: Performed By: #### L 500.28829, L500.92213, L500.04200, L500.57648 #### [facility] [place] [address] CO2 [Moles/Vol] 27.0 mmol/L Normal 21-32 [facility] Comment on above: Performed By: #### L 500.97283, L500.29159, L500.99144, L500.83465 #### [facility] [address] [place] [address] Creatinine [Mass/Vol] 0.83 mg/dL Normal 0.5-1.4 [facility] Comment on above: Result Comment: NOTE NEW NORMAL RANGE DUE TO REAGENT CHANGE Patients receiving either N-Acetylcysteine (NAC) or Metamizole prior to venipuncture, may have falsely depressed results. Performed By: #### L 500.95172, L500.23568, L500.34496, L500.67002 #### [facility] [place] [address] Globulin (S) [Mass/Vol] 3.9 g/dL Normal 2.2-4.2 [facility] Comment on above: Performed By: #### L 500.38399, L500.54509, L500.90700, L500.85588 #### [facility] [address] [place] [address] Glucose [Mass/Vol] 124 mg/dL High 70-100 [facility] Comment on above: Result Comment: 70-1 00- Normal Fasting; 100-125 Impaired Fasting; greater than 126 on more than one result- Diabetes. ADA guidelines. Results may be falsely elevated after the administration of Sulfapyridine. Results may be falsely depressed after the administration of Sulfasalazine. Performed By: #### L 500.78874, L500.34999, L500.03555, L500.45814 #### [facility] [place] [address] Potassium [Moles/Vol] 4.1 mmol/L Normal 3.5-5.1 [facility] Comment on above: Performed By: #### L 500.78014, L500.15895, L500.52541, L500.62005 #### [facility] [address] [place] [address] Protein [Mass/Vol] 7.5 g/dL Normal 6.0-8.5 [facility] Comment on above: Performed By: #### L 500.84755, L500.38115, L500.03448, L500.48190 #### [facility] [address] [place] [address] Sodium [Moles/Vol] 140 mmol/L Normal 136-145 [facility] Comment on above: Performed By: #### L 500.16538, L500.58431, L500.76810, L500.46744 #### [facility] [address] [place] [address] Urea nitrogen [Mass/Vol] 16 mg/dL Normal 7-26 [facility] Comment on above: Performed By: #### L 500.80495, L500.25967, L500.03927, L500.05867 #### [facility] [address] [place] [address] Urea nitrogen/Creatinine [Mass ratio] 19 mg/mg Normal 15-24 [facility] Comment on above: Performed By: #### L 500.33528, L500.98332, L500.65807, L500.72162 #### [facility] [address] GFR ESTon 06-18-2021 IF AMER Greater than 60 Normal [facility] Comment on above: Performed By: #### L 500.50375, L500.74307, L500.23614, L500.93916 #### [facility] [place] [address] IF non-AFR AMER Greater than 60 Normal [facility] Comment on above: Performed By: #### L 500.68420, L500.24263, L500.02020, L500.85936 #### [facility] [address] [place] [address] BMPon 05-24-2021 Anion gap [Moles/Vol] 5 mmol/L Normal 5-16 [facility] Comment on above: Order Comment: Campu s: M Performed By: #### L 500.01098, L500.10408, L500.28098 #### [facility] [address] [place] [address] Calcium [Mass/Vol] 9.2 mg/dL Normal 8.5-10.5 [facility] Comment on above: Order Comment: Campu s: M Result Comment: NOTE NEW NORMAL RANGE DUE TO REAGENT CHANGE Performed By: #### L 500.01010, L500.13932, L500.92828 #### [facility] [address] [place] [address] Chloride [Moles/Vol] 103 mmol/L Normal 98-107 [facility] Comment on above: Order Comment: Campu s: M Performed By: #### L 500.09986, L500.77459, L500.47841 #### [facility] [place] [address] CO2 [Moles/Vol] 31.0 mmol/L Normal 21-32 [facility] Comment on above: Order Comment: Campu s: M Performed By: #### L 500.92051, L500.68319, L500.70638 #### [facility] [address] [place] [address] Creatinine [Mass/Vol] 0.62 mg/dL Normal 0.5-1.4 [facility] Comment on above: Order Comment: Campu s: M Result Comment: NOTE NEW NORMAL RANGE DUE TO REAGENT CHANGE Patients receiving either N-Acetylcysteine (NAC) or Metamizole prior to venipuncture, may have falsely depressed results. Performed By: #### L 500.63562, L500.95035, L500.12085 #### [facility] [address] [place] [address] Glucose [Mass/Vol] 119 mg/dL High 70-100 [facility] Comment on above: Order Comment: Campu s: M Result Comment: 70-1 00- Normal Fasting; 100-125 Impaired Fasting; greater than 126 on more than one result- Diabetes. ADA guidelines. Results may be falsely elevated after the administration of Sulfapyridine. Results may be falsely depressed after the administration of Sulfasalazine. Performed By: #### L 500.67245, L500.76552, L500.38215 #### [facility] [address] [place] [address] Potassium [Moles/Vol] 4.0 mmol/L Normal 3.5-5.1 [facility] Comment on above: Order Comment: Campu s: M Performed By: #### L 500.93325, L500.24285, L500.26606 #### [facility] [address] [place] [address] Sodium [Moles/Vol] 139 mmol/L Normal 136-145 [facility] Comment on above: Order Comment: Campu s: M Performed By: #### L 500.05737, L500.65446, L500.41190 #### [facility] [address] [place], [place] [address] Urea nitrogen [Mass/Vol] 8 mg/dL Normal 7-26 [facility] Comment on above: Order Comment: Campu s: M Performed By: #### L 500.29332, L500.70463, L500.65897 #### [facility] [address] [place] [address] Urea nitrogen/Creatinine [Mass ratio] 13 mg/mg Low 15-24 [facility] Comment on above: Order Comment: Campu s: M Performed By: #### L 500.90910, L500.46397, L500.52067 #### [facility] [address] [place], [place] [address] CARD.D.[facility] 05-24-2021 CARD.D.[facility] Patient Name: SAKSHI KELLEY [address] [place] [address] Date of : [address] [address] Unit Number: [id number] Discharge Summary-[facility] Patient Status: DIS IN Attending Doctor: Hunter Davila MD Service Date: 05/24/21 1051 Discharge Summary Admit Date Admission Date Time: 05/20/21 0700 Anticipated Discharge Date 05/24/21 Final Dx/Problem List 1. CAD (coronary artery disease) 2. HTN (hypertension) 3. HLD (hyperlipidemia) 4. Tobacco abuse 5. 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 OPERATION: 1. Coronary artery bypass grafting x3 using PARSONS to mid LAD, reversed saphenous vein graft to obtuse marginal 2, and reversed saphenous vein graft to high-takeoff posterior descending. 2. Endoscopic vein harvesting. 3. Transesophageal echocardiography. 4. Resection of bulla from left upper lobe. PUMP TIME: 54 minutes. SURGEON: Hunter Davila MD Hospital Course 51 year old male with significant past medical history of HTN, HLD, and spontaneous pneumothorax requiring surgical intervention in 1991. He presented today for heart catheterization due to on going chest pain, despite initially having a normal stress test. Repeat exercise stress test did not show ischemic changes. Heart cath showed significant CAD; therefore, CTS was consulted for evaluation of surgical intervention. EF 60% Pt. was taken to the SCU postoperatively where they were expediently weaned from vasoactive gtts and extubated in routine fashion. Pt. spent the next several days gaining strength and mobility and being divested of chest tubes. Pt s post operative course was not prolonged/complicated . Pt. was deemed ready for and discharged by Dr. Guerrero on 05/24/21 Pt was discharged on ASA, Plavix, BB and statin. Pertinent Physical Findings General: A+O x3, NAD, obese Skin: Warm, Dry. Mediastinal incision dressed, CDI. ENT: MMM, no sinus drainage noted Neck: No JVD, Trach Midline, RIJ CVC Thorax: Equal, unlabored respirations, even chest rise and fall. Lung sounds - Clear and Diminished No accessory muscle use CV: HR RRR, S1,S2. No R/M/G, PPP +2, no Edema noted in BLE, CR < 3sec ABD: Large, soft NT. Bowel sounds present Musculoskeletal/Extre mities: No cyanosis or clubbing Neuro: CN II-XII grossly intact, No focal deficits Prescriptions Stop taking the following medications: Ramipril (Altace cap) 10 MG CAPSULE 10 MILLIGRAM ORAL EVERY DAY metoprolol SUCCINATE* (Toprol XL 50MG Tab SA*) 50 MG TAB.ER.24H 50 MILLIGRAM ORAL EVERY DAY Continue taking these medications: Rosuvastatin Calcium* (Crestor Tab*) 20 MG TABLET 20 MILLIGRAM ORAL EVERY DAY Aspirin* (Aspirin 81MG Tablet Chew*) 81 MG TAB.CHEW 81 MILLIGRAM ORAL DAILY WITH A MEAL Start taking the following new medications: Methocarbamol* (Robaxin Tab*) 500 MG TABLET 500 MILLIGRAM ORAL 3 TIMES DAILY NEEDED as needed for MUSCLE PAIN Days = 6 Qty = 18 Refills = AD Clopidogrel Bisulfate (Plavix 75 MG Tablet) 75 MG TABLET 75 MILLIGRAM ORAL AT BEDTIME Days = 30 Qty = 30 Refills = 3 metoprolol TARTRATE* (Lopressor 50MG Tab*) 50 MG TABLET 50 MILLIGRAM ORAL 2 TIMES DAILY Days = 30 Qty = 60 Refills = 3 Benzonatate (Benzonatate) 100 MG CAPSULE 100 MILLIGRAM ORAL 3 TIMES DAILY NEEDED as needed for COUGH Days = 10 Qty = 30 No Refills Docusate Sodium* (Colace 100MG Cap*) 100 MG CAPSULE 100 MILLIGRAM ORAL 2 TIMES DAILY Days = 30 Qty = 60 Refills = AD Magnesium OXIDE* (Mag-Oxide tab*) 400 MG TABLET 400 MILLIGRAM ORAL EVERY DAY Days = 30 Qty = 30 Refills = AD Pantoprazole Sodium (Protonix) 40 MG TABLET. 40 MILLIGRAM ORAL ONCE DAILY BEFORE MEALS Days = 30 Qty = 30 No Refills Melatonin* (Melatonin Tab*) 5 MG TABLET 5 MILLIGRAM ORAL AT BEDTIME Days = 30 Qty = 30 Refills = AD Referrals Ordered Referrals Surgery In One-Two Weeks For Providers: Hunter Davila MD [address] [facility] [place], [place] [id number] Cardiology Referral In Four-Six Weeks For Providers: Sakshi Valdovinos MD [address] [facility] [address] [place] [address] Family Medicine In Three-Four Weeks For Providers: Melody Mary [facility] [address] [place] [address] Condition: Stable Disposition Home Disclaimer This dictation was created using voice recognition software. Phonetic and/or minor grammatical errors may exist. eSign Date and Time Marina Spencer CNP, John W MD Verified/Reviewed by 05/27/21 0913 [facility] Erythrocyte distribution width (RBC) [Ratio] 13.2 % Normal 11-14.5 [facility] Comment on above: Order Comment: Ayanna s: M Performed By: #### L 500.93561, L500.98404, L500.93667, L500.68853 #### [facility] [address] [id number] # [phone] Hematocrit (Bld) [Volume fraction] 31.0 % Low 41.0-53.0 [facility] Comment on above: Order Comment: Ayanna s: M Performed By: #### L 500.19022, L500.03136, L500.68711, L500.08127 #### [facility] [address] [place] [address] Hemoglobin (Bld) [Mass/Vol] 10.4 g/dL Low 13.5-17.5 [facility] Comment on above: Order Comment: Campu s: M Result Comment: Repe ated and verified. Performed By: #### L 500.62686, L500.74452, L500.79950, L500.92239 #### [facility] [address] [place] [address] MCHC (RBC) [Mass/Vol] 33.5 g/dL Normal 32.0-36.0 [facility] Comment on above: Order Comment: Campu s: M Performed By: #### L 500.78033, L500.34559, L500.58512, L500.22176 #### [facility] [address] [place] [address] MCV (RBC) [Entitic vol] 92.0 fL Normal 80.0-99.0 [facility] Comment on above: Order Comment: Campu s: M Performed By: #### L 500.49697, L500.67759, L500.82810, L500.42326 #### [facility] [address] [place] [address] Nucleated RBC/100 WBC (Bld) [Ratio] 0.0 % Normal Less than 1 [facility] Comment on above: Order Comment: Campu s: M Performed By: #### L 500.41698, L500.71895, L500.52655, L500.81697 #### [facility] [address] [place], [place] [address] Platelet mean volume (Bld) [Entitic vol] 9.9 fL Normal 9.4-12.4 [facility] Comment on above: Order Comment: Campu s: M Performed By: #### L 500.00807, L500.64337, L500.65213, L500.21891 #### [facility] [address] [place], [place] [address] PLT 138 K/CU MM Low 150-450 [facility] Comment on above: Order Comment: Campu s: M Performed By: #### L 500.69974, L500.09985, L500.03390, L500.35902 #### [facility] [address] [place] [address] RBC 3.37 M/CU MM Low 4.50-6.00 [facility] Comment on above: Order Comment: Campu s: M Performed By: #### L 500.25146, L500.21015, L500.43169, L500.04014 #### [facility] [address] [place] [address] WBC 11.4 K/CUMM High 4.5-11.0 [facility] Comment on above: Order Comment: Campu s: M Performed By: #### L 500.03478, L500.77434, L500.28534, L500.47849 #### [facility] [address] [place] [address] GFR ESTon 05-24-2021 IF AMER Greater than 60 Normal [facility] Comment on above: Order Comment: Campu s: M Performed By: #### L 500.18101, L500.61411, L500.60565 #### [facility] [address] [place] [address] IF non-AFR AMER Greater than 60 Normal [facility] Comment on above: Order Comment: Campu s: M Performed By: #### L 500.26645, L500.90873, L500.34760 #### [facility] [address] [place] [address] MAGNESIUMon 05-24-2021 Magnesium [Mass/Vol] 2.1 mg/dL Normal 1.6-2.6 [facility] Comment on above: Order Comment: Campu s: M Performed By: #### L 500.37289, L500.31955, L500.27121 #### [facility] [address] [place] [address] BMPon 05-23-2021 Anion gap [Moles/Vol] 3 mmol/L Low 5-16 [facility] Comment on above: Order Comment: Campu s: M Performed By: #### L 500.17251, L500.61012, L500.81880 #### [facility] [address] [place] [address] Calcium [Mass/Vol] 8.6 mg/dL Normal 8.5-10.5 [facility] Comment on above: Order Comment: Campu s: M Result Comment: NOTE NEW NORMAL RANGE DUE TO REAGENT CHANGE Performed By: #### L 500.21775, L500.37501, L500.04935 #### [facility] [address] [place], [place] [address] Chloride [Moles/Vol] 103 mmol/L Normal 98-107 [facility] Comment on above: Order Comment: Campu s: M Performed By: #### L 500.07604, L500.97222, L500.97518 #### [facility] [address] [place], [place] [address] CO2 [Moles/Vol] 33.0 mmol/L High 21-32 [facility] Comment on above: Order Comment: Campu s: M Performed By: #### L 500.36549, L500.06792, L500.91128 #### [facility] [place] [address] Creatinine [Mass/Vol] 0.79 mg/dL Normal 0.5-1.4 [facility] Comment on above: Order Comment: Campu s: M Result Comment: NOTE NEW NORMAL RANGE DUE TO REAGENT CHANGE Patients receiving either N-Acetylcysteine (NAC) or Metamizole prior to venipuncture, may have falsely depressed results. Performed By: #### L 500.23251, L500.18595, L500.00625 #### [facility] [place] [address] Glucose [Mass/Vol] 141 mg/dL High 70-100 [facility] Comment on above: Order Comment: Campu s: M Result Comment: 70-1 00- Normal Fasting; 100-125 Impaired Fasting; greater than 126 on more than one result- Diabetes. ADA guidelines. Results may be falsely elevated after the administration of Sulfapyridine. Results may be falsely depressed after the administration of Sulfasalazine. Performed By: #### L 500.41924, L500.84528, L500.78605 #### [facility] [address] [place] [address] Potassium [Moles/Vol] 4.2 mmol/L Normal 3.5-5.1 [facility] Comment on above: Order Comment: Campu s: M Result Comment: Slig ht Hemolysis, Result may be affected. Performed By: #### L 500.09551, L500.62135, L500.09700 #### [facility] [place] [address] Sodium [Moles/Vol] 137 mmol/L Normal 136-145 [facility] Comment on above: Order Comment: Campu s: M Performed By: #### L 500.17454, L500.79528, L500.89736 #### [facility] [place] [address] Urea nitrogen [Mass/Vol] 14 mg/dL Normal 7-26 [facility] Comment on above: Order Comment: Campu s: M Performed By: #### L 500.03995, L500.86033, L500.02401 #### [facility] [address] [place] [address] Urea nitrogen/Creatinine [Mass ratio] 18 mg/mg Normal 15-24 [facility] Comment on above: Order Comment: Campu s: M Performed By: #### L 500.64950, L500.98842, L500.90585 #### [facility] [address] [place], [place] [address] GFR ESTon 05-23-2021 IF AMER Greater than 60 Normal [facility] Comment on above: Order Comment: Campu s: M Performed By: #### L 500.70961, L500.40400, L500.74798 #### [facility] [address] [place] [address] IF non-AFR AMER Greater than 60 Normal [facility] Comment on above: Order Comment: Campu s: M Performed By: #### L 500.71250, L500.11328, L500.91019 #### [facility] [address] [place] [address] GLUCOSE METERon 05-23-2021 Glucose [Mass/Vol] 138 mg/dL High 85-125 [facility] L[facility] 05-23-2021 Albumin [Mass/Vol] 3.3 g/dL Normal 3.2-5.0 [facility] Comment on above: Order Comment: Campu s: M Performed By: #### L 500.45629, L500.53015, L500.70120 #### [facility] [address] [place] [address] Albumin/Globulin [Mass ratio] 1.4 {ratio} Normal 0.8-2.0 [facility] Comment on above: Order Comment: Campu s: M Performed By: #### L 500.82298, L500.76723, L500.42469 #### [facility] [address] [place] [id number] ALK PHOS 44 U/L Low 45-117 [facility] Comment on above: Order Comment: Campu s: M Performed By: #### L 500.82645, L500.93262, L500.49617 #### [facility] [address] [place] [address] ALT [Catalytic activity/Vol] 41 U/L Normal 13-61 [facility] Comment on above: Order Comment: Campu s: M Result Comment: RESU LTS MAY BE FALSELY DEPRESSED AFTER THE ADMINISTRATION OF SULFASALAZINE AND/OR SULFAPYRIDINE. Performed By: #### L 500.47072, L500.27300, L500.16992 #### [facility] [address] [place] [address] AST [Catalytic activity/Vol] 39 U/L High 8-34 [facility] Comment on above: Order Comment: Campu s: M Result Comment: RESU LTS MAY BE FALSELY DEPRESSED AFTER THE ADMINISTRATION OF SULFASALAZINE AND/OR SULFAPYRIDINE. Performed By: #### L 500.63069, L500.97900, L500.32562 #### [facility] [address] [place] [address] BILI DIRECT 0.1 MG/DL Normal 0.00-0.36 [facility] Comment on above: Order Comment: Campu s: M Result Comment: NOTE NEW NORMAL RANGE DUE TO REAGENT CHANGE Performed By: #### L 500.63662, L500.15055, L500.94091 #### [facility] [address] [place], [place] [address] BILI TOTAL 0.30 MG/DL Normal 0.2-1.0 [facility] Comment on above: Order Comment: Campu s: M Performed By: #### L 500.71265, L500.63695, L500.86317 #### [facility] [address] [place] [address] Globulin (S) [Mass/Vol] 2.4 g/dL Normal 2.2-4.2 [facility] Comment on above: Order Comment: Campu s: M Performed By: #### L 500.27553, L500.64143, L500.51090 #### [facility] [address] [place] [address] Protein [Mass/Vol] 5.7 g/dL Low 6.0-8.5 [facility] Comment on above: Order Comment: Campu s: M Performed By: #### L 500.87720, L500.91823, L500.74551 #### [facility] [address] [place] [address] MAGNESIUMon 05-23-2021 Magnesium [Mass/Vol] 1.9 mg/dL Normal 1.6-2.6 [facility] Comment on above: Order Comment: Campu s: M Performed By: #### L 500.05299, L500.10292, L500.39988 #### [facility] [address] [place] [address] OTARon 05-23-2021 OT Assessment Report Normal [facility] PROG.Anthony 05-23-2021 PROG.MEGHANN [facility] Patient Name: SAKSHI KELLEY [address] [place] [address] Date of : [address] [address] Unit Number: [id number] Progress Note-Cardiology Patient Status: ADM IN Attending Doctor: Hunter Davila MD Service Date: 05/23/21 1244 Subjective S: (2 ROS minimum) Patient without any complaints. Patient walked the halls today without any complaints. Patient denies any chest pains, shortness of breath, palpitations, dizziness, near-syncope , or syncope. Objective (ROS) Nursing Vitals Vital Signs (Last) Result Date Time Pulse Ox 94 05/23 1200 O2 Delivery NASAL CANNULA 05/23 1200 B/P 122/73 05/23 1052 O2 Flow Rate 1 05/23 1052 Temp 99.7 05/23 1052 Pulse 87 05/23 1052 Resp 20 05/23 1052 B/P Mean 87 05/22 1230 FiO2 40 05/21 1815 Vital Signs (24hr) Date Temp Pulse Resp B/P B/P Mean Pulse Ox FiO2 05/22-05/23 97.8-99.7 87-98 17-20 114-137/60-79 93-N Physical Exam Physical Examination Notes General: Patient is alert and oriented x3 and is in no acute respiratory distress Neck: Negative hepatojugular reflux or jugular venous distention, negative carotid bruit. Lungs: Clear to auscultation b/l anteriorly and posteriorly, no wheezing, rales, or rhonchi. Diminished bases. Cardiac: Regular rhythm and rate, S1-S2 within normal limits, no murmurs, gallops or rubs appreciated. Abdomen: Soft, nontender, nondistended, bowel sounds are positive. Extremities: No edema, cyanosis, or clubbing. Psychiatry: Normal affect. Telemetry: Normal sinus rhythm Echocardiogram: TRANSTHORACIC ECHOCARDIOGRAM 05/20/21: Interpretation Summary SUPINE/POST CATH Ejection Fraction = 60-65%. There is Trace to mild tricuspid regurgitation. Left Ventricle: The left ventricular size, thickness and function are normal. Ejection Fraction = 60-65%. Left Ventricular Filling pattern is normal for age. Amador Gaspar MD 05/20/2021 Left Heart Catheterization LEFT HEART CATHETERIZATION, LEFT VENTRICULOGRAM, CORONARY ANGIOGRAPHY 05/20/21: IMPRESSION: 1. An 80% distal left main. 2. A 99% proximal left anterior descending prior to the 1st septal crossing tender. 3. Normal circumflex. 4. A 100% right coronary artery being filled by [id number] collaterals. 5. Normal left ventricular function. In light of these findings, feel at this time patient needs bypass surgery. Will go ahead and make her a surgical interventional call. __ Los Fuller DO Current Inpatient Medications: Medications Current Sig/Denilson Start time Last Medication Dose Route Stop Time Status Admin Acetaminophen 1,000 MG Q6HPRN PRN 05/21 1030 AC 05/23 (TYLENOL TAB) PO 0224 Albuterol Sulfate 2.5 MG Q2HPRN PRN 05/22 1030 AC (VENTOLIN/PROVENTIL INH 2.5MG/3ML INH.NEB) Amiodarone HCl 150 MG DIRECTED PRN 05/21 1030 AC (CORDARONE VIAL) IV Sodium Chloride 50 ML (Sodium Chloride 0.9%) Amiodarone HCl 450 MG DIRECTED PRN 05/21 1030 AC (CORDARONE VIAL) IV Sodium Chloride 250 ML (Sodium Chloride 0.9%) Aspirin 81 MG QDAYWM 05/22 0800 AC 05/23 (ECOTRIN TAB.EC) PO 0823 Calcium Chloride 10 ML DIRECTED PRN 05/21 1030 AC (calcium CHLORIDE IV 10% VIAL) Sodium Chloride 50 ML (Sodium Chloride 0.9%) Calcium Chloride 10 ML DIRECTED PRN 05/21 1030 AC (calcium CHLORIDE IV 10% D.SYR) Clopidogrel Bisulfate 75 MG QHS 05/22 2200 AC 05/22 (PLAVIX TAB) PO 2006 Dextrose/Water 25 ML PRN PRN 05/22 1030 AC (DEXTROSE 50%/WATER IV ABBOJECT) Dextrose/Water See Dose DIRECTED PRN 05/21 1030 AC (DEXTROSE 50%/WATER Insts (1) IV ABBOJECT) Docusate Sodium 100 MG BID 05/22 0900 AC 05/23 (COLACE CAP) PO 0823 Famotidine 20 MG BID 05/21 2100 AC 05/23 (PEPCID VIAL) IV 05/23 2300 0824 Ferric Sodium 250 MG QDAY 05/22 1400 AC 05/23 Gluconate IV 05/25 0959 0822 (FERRLECIT AMP) Sodium Chloride 100 ML (Sodium Chloride 0.9%) Heparin Sodium See Dose Q24H 05/22 0900 AC 05/23 (Porcine) Insts (2) IV 0827 (HEP-LOCK *10*UNITS/ ML IV D.SYR.PF) Heparin Sodium 5,000 UNIT Q12H 05/22 0900 AC 05/23 (Porcine) SC 0822 (HEPARIN D.SYR) Hydroxyzine Pamoate 25 MG TIDPRN PRN 05/21 1030 AC 05/22 (VISTARIL CAP) PO 0953 Insulin Human Lispro See Dose WMHS 05/22 1130 AC 05/22 (humaLOG/novoLOG PEN) Insts (3) SC 2214 Magnesium Oxide 400 MG QDAY 05/22 0900 AC 05/23 (MAG-OX TAB) PO 0822 Magnesium Sulfate 50 ML DIRECTED PRN 05/21 1030 AC (Magnesium Sulfate IV 2gm/50ml premix) Magnesium Sulfate 50 ML PRN PRN 05/21 1030 AC 05/23 (Magnesium Sulfate IV 0822 2gm/50ml premix) Melatonin 5 MG QHS 05/21 2200 AC 0 (more content not included)... Normal [facility] Progress Note-Cardiology Normal [facility] PROG.CTSon 05-23-2021 PROG.CTS [facility] Patient Name: SAKSHI KELLEY [address] Date of : [address] [place] [address] Unit Number: [id number] Progress Note-CTS Patient Status: DIS IN Attending Doctor: Hunter Davila MD Service Date: 05/23/21 1008 Subjective S: (2 ROS minimum) Pt reports feeling very well. States he has been ambulating in hallways, tolerating meals. No concerns. Anxious to be discharged home. Objective (ROS) Nursing Vitals Vital Signs (Last) Result Date Time Pulse Ox 93 05/23 0700 B/P 114/60 05/23 0700 O2 Delivery NASAL CANNULA 05/23 0700 O2 Flow Rate 2L 05/23 0700 Temp 98.5 05/23 0700 Pulse 98 05/23 0700 Resp 18 05/23 0700 B/P Mean 87 05/22 1230 FiO2 40 05/21 1815 Vital Signs (24hr) Date Temp Pulse Resp B/P B/P Mean Pulse Ox FiO2 05/22-05/23 97.1-98.9 87-98 17-20 114-137/60-79 87 93-99 Physical Exam Physical Examination Notes General: A+O x3, NAD Skin: Warm, Dry. Mediastinal incision dressed, CDI. ENT: MMM, no sinus drainage noted Neck: No JVD, Trach Midline, RIJ CVC Thorax: Equal, unlabored respirations, even chest rise and fall. Lung sounds -clear and Diminished no accessory muscle use CV: HR regular, S1,S2. No R/M/G, PPP +2, 1+ Edema noted in BLE, CR < 3sec ABD: Large, soft NT. Bowel sounds present Musculoskeletal/Extre mities: No cyanosis or clubbing Neuro: CN II-XII grossly intact, No focal deficits Telemetry: Sinus rhythm Current Inpatient Medications: Medications Current Sig/Denilson Start time Last Medication Dose Route Stop Time Status Admin Acetaminophen 1,000 MG Q6HPRN PRN 05/21 1030 AC 05/23 (TYLENOL TAB) PO 0224 Albuterol Sulfate 2.5 MG Q2HPRN PRN 05/22 1030 AC (VENTOLIN/PROVENTIL INH 2.5MG/3ML INH.NEB) Amiodarone HCl 150 MG DIRECTED PRN 05/21 1030 AC (CORDARONE VIAL) IV Sodium Chloride 50 ML (Sodium Chloride 0.9%) Amiodarone HCl 450 MG DIRECTED PRN 05/21 1030 AC (CORDARONE VIAL) IV Sodium Chloride 250 ML (Sodium Chloride 0.9%) Aspirin 81 MG QDAYWM 05/22 0800 AC 05/23 (ECOTRIN TAB.EC) PO 0823 Calcium Chloride 10 ML DIRECTED PRN 05/21 1030 AC (calcium CHLORIDE IV 10% VIAL) Sodium Chloride 50 ML (Sodium Chloride 0.9%) Calcium Chloride 10 ML DIRECTED PRN 05/21 1030 AC (calcium CHLORIDE IV 10% D.SYR) Clopidogrel Bisulfate 75 MG QHS 05/22 2200 AC 05/22 (PLAVIX TAB) PO 2005 Dextrose/Water 25 ML PRN PRN 05/22 1030 AC (DEXTROSE 50%/WATER IV ABBOJECT) Dextrose/Water See Dose DIRECTED PRN 05/21 1030 AC (DEXTROSE 50%/WATER Insts (1) IV ABBOJECT) Docusate Sodium 100 MG BID 05/22 0900 AC 05/23 (COLACE CAP) PO 0823 Famotidine 20 MG BID 05/21 2100 AC 05/23 (PEPCID VIAL) IV 05/23 2300 0824 Ferric Sodium 250 MG QDAY 05/22 1400 AC 05/23 Gluconate IV 05/25 0959 0822 (FERRLECIT AMP) Sodium Chloride 100 ML (Sodium Chloride 0.9%) Heparin Sodium See Dose Q24H 05/22 0900 AC 05/23 (Porcine) Insts (2) IV 0827 (HEP-LOCK *10*UNITS/ ML IV D.SYR.PF) Heparin Sodium 5,000 UNIT Q12H 05/22 0900 AC 05/23 (Porcine) SC 0822 (HEPARIN D.SYR) Hydroxyzine Pamoate 25 MG TIDPRN PRN 05/21 1030 AC 05/22 (VISTARIL CAP) PO 0953 Insulin Human Lispro See Dose WMHS 05/22 1130 AC 05/22 (humaLOG/novoLOG PEN) Insts (3) SC 2214 Magnesium Oxide 400 MG QDAY 05/22 0900 AC 05/23 (MAG-OX TAB) PO 0822 Magnesium Sulfate 50 ML DIRECTED PRN 05/21 1030 AC (Magnesium Sulfate IV 2gm/50ml premix) Magnesium Sulfate 50 ML PRN PRN 05/21 1030 AC 05/23 (Magnesium Sulfate IV 0822 2gm/50ml premix) Melatonin 5 MG QHS 05/21 2200 AC 05/22 (MELATONIN TAB) PO 2110 Methocarbamol 500 MG Q6HPRN PRN 05/21 1030 AC 05/22 (ROBAXIN TAB) PO 0952 Metoprolol Tartrate 25 MG BID 05/22 2100 AC 05/23 (LOPRESSOR TAB) PO 0822 Nicotine 21 MG QDAY 05/22 2218 AC 05/23 (NICODERM 21MG/24HR TD 0823 T.PATCH) Ondansetron HCl 4 MG Q6HPRN PRN 05/21 1030 AC (ZOFRAN VIAL) IV Oxycodone HCl 10 MG Q4HPRN PRN 05/21 2330 AC 05/23 (OXYIR TAB) PO 0300 Oxycodone HCl 5 MG Q4HPRN PRN 05/21 1030 AC 05/21 (OXYIR TAB) PO 2108 Pantoprazole Sodium 40 MG QDAYAC 05/24 0700 AC (PROTONIX TAB) PO Polyethylene Glycol 17 GM BID 05/22 0900 AC 05/23 (MIRALAX PACKT) PO 0823 Potassium 25 MEQ PRN PRN 05/21 1030 AC Bicarbonate/Citric PO Acid (Klor-con-Ef 25MEQ TAB.EF (ORANGE)) Potassium Chloride 20 MEQ PRN PRN 05/21 1030 AC (potassium (KCL) IV CHLORIDE VIAL) Sodium Chloride 50 ML (Sodium Chloride 0.9%) Potassium Chloride 40 MEQ (more content not included)... [facility] Progress Note-CTS [facility] PTARon 05-23-2021 PT Assessment Report Normal [facility] ABGPEon 05-22-2021 ABG BE -3.5 MML/L Low -2.0-2.0 [facility] Comment on above: Order Comment: Campu s: M Performed By: #### L 500.97997, L500.06182, L500.98877, L500.38786 #### [facility] [address] [place] [address] 67703 ABG COHBA 0.7 % Normal 0-10 [facility] Comment on above: Order Comment: Campu s: M Performed By: #### L 500.39498, L500.54475, L500.84670, L500.97168 #### [facility] [address] [place] [address] 51743 ABG MET 0.2 % Low 0.4-1.5 [facility] Comment on above: Order Comment: Campu s: M Performed By: #### L 500.66203, L500.90858, L500.15479, L500.95770 #### [facility] [address] [place] [address] 40188 ABG O2 CAPACITY 19.7 mL/dL Normal [facility] Comment on above: Order Comment: Campu s: M Performed By: #### L 500.32700, L500.95783, L500.78629, L500.77742 #### [facility] [address] [place] [address] 39432 ABG O2 CONTENT 19.5 mL/dL Normal 15.7-21.6 [facility] Comment on above: Order Comment: Campu s: M Performed By: #### L 500.77561, L500.99554, L500.09101, L500.50956 #### [facility] [address] [place] [address] 88163 ABG O2HB SAT 96.5 % Normal 90-100 [facility] Comment on above: Order Comment: Campu s: M Performed By: #### L 500.98299, L500.03472, L500.50888, L500.38767 #### [facility] [place] [address] ABG PCO2 49.7 MMHG High 35-45 [facility] Comment on above: Order Comment: Campu s: M Performed By: #### L 500.09911, L500.30340, L500.81594, L500.20954 #### [facility] [address] [place] [address] 57126 ABG PH 7.29 Low 7.35-7.45 [facility] Comment on above: Order Comment: Campu s: M Performed By: #### L 500.17026, L500.56964, L500.32507, L500.28683 #### [facility] [address] [place] [address] 84036 ABG PO2 112 MMHG High 80-100 [facility] Comment on above: Order Comment: Campu s: M Performed By: #### L 500.23950, L500.18522, L500.69426, L500.12927 #### [facility] [address] [place] [address] 51856 ABG REDUCED HGB 2.6 % Normal 0-5 [facility] Comment on above: Order Comment: Campu s: M Performed By: #### L 500.38557, L500.73713, L500.93806, L500.13337 #### [facility] [address] [place] [address] 08075 Body temperature 98.6 [degF] Normal [facility] Comment on above: Order Comment: Campu s: M Performed By: #### L 500.41187, L500.80019, L500.32630, L500.41007 #### [facility] [place] [address] EQUIPMENT NASAL CANNULA Normal [facility] Comment on above: Order Comment: Campu s: M Performed By: #### L 500.46732, L500.84864, L500.10281, L500.62671 #### [facility] [address] [place] [address] HCO3 (Bld) [Moles/Vol] 23.5 mmol/L Normal 22-26 M [facility] Comment on above: Order Comment: Campu s: M Performed By: #### L 500.19303, L500.27484, L500.42336, L500.96376 #### [facility] [address] [place] [address] Hemoglobin (Bld) [Mass/Vol] 14.3 g/dL Normal 10-16 [facility] Comment on above: Order Comment: Campu s: M Performed By: #### L 500.55761, L500.57769, L500.25834, L500.05885 #### [facility] [address] [place] [address] IONIZED CA 1.23 MMOL/L Normal 1.13-1.32 [facility] Comment on above: Order Comment: Campu s: M Performed By: #### L 500.38732, L500.38401, L500.64499, L500.62308 #### [facility] [address] [place], [place] [id number] LITERFLOW 4.00 L/M Normal [facility] Comment on above: Order Comment: Campu s: M Performed By: #### L 500.28564, L500.38323, L500.79931, L500.67667 #### [facility] [address] [place] [address] 60416 Potassium [Moles/Vol] 5.0 mmol/L Normal 3.5-5.0 [facility] Comment on above: Order Comment: Campu s: M Performed By: #### L 500.71790, L500.66474, L500.47101, L500.51640 #### [facility] [place] [address] SAMPLE SITE ARTERIAL LINE Normal [facility] Comment on above: Order Comment: Campu s: M Performed By: #### L 500.84759, L500.76428, L500.26841, L500.21557 #### [facility] [address] [place] [address] 513[address] SAMPLE TYPE ARTERIAL Normal [facility] Comment on above: Order Comment: Campu s: M Performed By: #### L 500.70398, L500.73535, L500.70675, L500.48569 #### [facility] [address] [place] [address] 80590 Sodium [Moles/Vol] 135 mmol/L Low 136-148 [facility] Comment on above: Order Comment: Campu s: M Performed By: #### L 500.80611, L500.35527, L500.94869, L500.68247 #### [facility] [address] [place] [address] 09194 BMPon 05-22-2021 Anion gap [Moles/Vol] 7 mmol/L Normal 5-16 [facility] Comment on above: Order Comment: Campu s: M Performed By: #### L 500.10665, L500.54293, L500.47756 #### [facility] [address] [place] [address] Calcium [Mass/Vol] 9.5 mg/dL Normal 8.5-10.5 [facility] Comment on above: Order Comment: Campu s: M Result Comment: NOTE NEW NORMAL RANGE DUE TO REAGENT CHANGE Performed By: #### L 500.79712, L500.49565, L500.72961 #### [facility] [address] [place] [address] Chloride [Moles/Vol] 105 mmol/L Normal 98-107 [facility] Comment on above: Order Comment: Campu s: M Performed By: #### L 500.69585, L500.86231, L500.93665 #### [facility] [address] [place] [address] 67545 CO2 [Moles/Vol] 26.0 mmol/L Normal 21-32 [facility] Comment on above: Order Comment: Campu s: M Performed By: #### L 500.96119, L500.53410, L500.45001 #### [facility] [address] [place] [address]70 Creatinine [Mass/Vol] 0.83 mg/dL Normal 0.5-1.4 [facility] Comment on above: Order Comment: Campu s: M Result Comment: NOTE NEW NORMAL RANGE DUE TO REAGENT CHANGE Patients receiving either N-Acetylcysteine (NAC) or Metamizole prior to venipuncture, may have falsely depressed results. Performed By: #### L 500.43540, L500.10174, L500.22116 #### [facility] [address] [place] [address] 41847 Glucose [Mass/Vol] 132 mg/dL High 70-100 [facility] Comment on above: Order Comment: Campu s: M Result Comment: Delt a check reviewed 70-100- Normal Fasting; 100-125 Impaired Fasting; greater than 126 on more than one result- Diabetes. ADA guidelines. Results may be falsely elevated after the administration of Sulfapyridine. Results may be falsely depressed after the administration of Sulfasalazine. Performed By: #### L 500.99231, L500.77315, L500.35948 #### [facility] [place] [address] Potassium [Moles/Vol] 4.9 mmol/L Normal 3.5-5.1 [facility] Comment on above: Order Comment: Campu s: M Performed By: #### L 500.22754, L500.26708, L500.25832 #### [facility] [address] [place] [address] Sodium [Moles/Vol] 138 mmol/L Normal 136-145 [facility] Comment on above: Order Comment: Campu s: M Performed By: #### L 500.10952, L500.14647, L500.68998 #### [facility] [address] [place] [address] Urea nitrogen [Mass/Vol] 15 mg/dL Normal 7-26 [facility] Comment on above: Order Comment: Campu s: M Performed By: #### L 500.40225, L500.60632, L500.04093 #### [facility] [address] [place] [address] Urea nitrogen/Creatinine [Mass ratio] 18 mg/mg Normal 15-24 [facility] Comment on above: Order Comment: Campu s: M Performed By: #### L 500.72208, L500.22290, L500.20145 #### [facility] [address] [place] [address] CBC W/DIFFon 05-22-2021 BASO ABS 0.00 K/CU MM Normal 0-0.2 [facility] Comment on above: Order Comment: Campu s: M Performed By: #### L 500.37945, L500.22381, L500.51477, L500.35466 #### [facility] [address] [place], [place] [address] Basophils/100 WBC (Bld) 0.3 % Normal 0-2 [facility] Comment on above: Order Comment: Campu s: M Performed By: #### L 500.85246, L500.37497, L500.96484, L500.53814 #### [facility] [address] [place] [address] EOS ABS 0.00 K/CU MM Normal 0-0.5 [facility] Comment on above: Order Comment: Campu s: M Performed By: #### L 500.96951, L500.93797, L500.16996, L500.99754 #### [facility] [address] [place] [address] Eosinophils/100 WBC (Bld) 0.0 % Normal 0-5 [facility] Comment on above: Order Comment: Campu s: M Performed By: #### L 500.85264, L500.95802, L500.70905, L500.86017 #### [facility] [address] [place] [address] Erythrocyte distribution width (RBC) [Ratio] 13.2 % Normal 11-14.5 [facility] Comment on above: Order Comment: Campu s: M Performed By: #### L 500.36598, L500.41830, L500.62799, L500.13008 #### [facility] [address] [place] [address] Hematocrit (Bld) [Volume fraction] 41.1 % Normal 41.0-53.0 [facility] Comment on above: Order Comment: Campu s: M Performed By: #### L 500.10395, L500.41472, L500.58110, L500.59467 #### [facility] [address] [place] [address] Hemoglobin (Bld) [Mass/Vol] 13.7 g/dL Normal 13.5-17.5 [facility] Comment on above: Order Comment: Campu s: M Performed By: #### L 500.67449, L500.00578, L500.14164, L500.57828 #### [facility] [address] [place] [address] IMMATR GRAN ABS 0.10 K/CU MM Normal Less than 2 [facility] Comment on above: Order Comment: Campu s: M Performed By: #### L 500.59285, L500.92263, L500.55443, L500.18935 #### [facility] [address] [place] [address] IMMATURE GRAN % 0.6 % Normal Less than 2 [facility] Comment on above: Order Comment: Campu s: M Performed By: #### L 500.70799, L500.05501, L500.50668, L500.79225 #### [facility] [address] [place] [address] LYMPH ABS 2.30 K/CU MM Normal 0.9-4.4 [facility] Comment on above: Order Comment: Campu s: M Performed By: #### L 500.09207, L500.50710, L500.63399, L500.22548 #### [facility] [address] [place] [address] Lymphocytes/100 WBC (Bld) 14.9 % Low 20-40 [facility] Comment on above: Order Comment: Campu s: M Performed By: #### L 500.82687, L500.73404, L500.38139, L500.48475 #### [facility] [address] [place] [address] MCHC (RBC) [Mass/Vol] 33.3 g/dL Normal 32.0-36.0 [facility] Comment on above: Order Comment: Campu s: M Performed By: #### L 500.74934, L500.08061, L500.39740, L500.86480 #### [facility] [address] [place] [address] MCV (RBC) [Entitic vol] 91.3 fL Normal 80.0-99.0 [facility] Comment on above: Order Comment: Campu s: M Performed By: #### L 500.69439, L500.35190, L500.57254, L500.35799 #### [facility] [address] [place] [address] MONO ABS 1.90 K/CU MM High 0.1-1.1 [facility] Comment on above: Order Comment: Campu s: M Performed By: #### L 500.00044, L500.91584, L500.01341, L500.42795 #### [facility] [address] [place] [address] Monocytes/100 WBC (Bld) 12.5 % High 2-10 [facility] Comment on above: Order Comment: Campu s: M Performed By: #### L 500.64052, L500.87058, L500.23571, L500.24271 #### [facility] [address] [place] [address] NEUTROPHIL ABS 11.00 K/CU MM High 2.0-8.3 [facility] Comment on above: Order Comment: Campu s: M Performed By: #### L 500.84700, L500.62583, L500.89948, L500.19464 #### [facility] [address] [place] [address] Neutrophils/100 WBC (Bld) 71.7 % Normal 45-75 [facility] Comment on above: Order Comment: Campu s: M Performed By: #### L 500.88787, L500.92930, L500.75857, L500.98058 #### [facility] [address] [place] [address] Nucleated RBC/100 WBC (Bld) [Ratio] 0.0 % Normal Less than 1 [facility] Comment on above: Order Comment: Campu s: M Performed By: #### L 500.82740, L500.73549, L500.69351, L500.70558 #### [facility] [address] [place] [address] Platelet mean volume (Bld) [Entitic vol] 9.8 fL Normal 9.4-12.4 [facility] Comment on above: Order Comment: Campu s: M Performed By: #### L 500.36855, L500.89544, L500.27875, L500.05052 #### [facility] [address] [place] [address] PLT 172 K/CU MM Normal 150-450 [facility] Comment on above: Order Comment: Campu s: M Performed By: #### L 500.29806, L500.19424, L500.09502, L500.35481 #### [facility] [address] [place] [address] RBC 4.50 M/CU MM Normal 4.50-6.00 [facility] Comment on above: Order Comment: Campu s: M Performed By: #### L 500.92379, L500.68304, L500.80519, L500.22720 #### [facility] [address] [place] [address] WBC 15.4 K/CUMM High 4.5-11.0 [facility] Comment on above: Order Comment: Campu s: M Performed By: #### L 500.61901, L500.97798, L500.78112, L500.84253 #### [facility] [address] [place] [address] GFR ESTon 05-22-2021 IF AMER Greater than 60 Normal [facility] Comment on above: Order Comment: Campu s: M Performed By: #### L 500.54940, L500.61725, L500.88554 #### [facility] [address] [place] [address] IF non-AFR AMER Greater than 60 Normal [facility] Comment on above: Order Comment: Ayanna rodas: M Performed By: #### L 500.33167, L500.84597, L500.11312 #### [facility] [place] [address] GLUCOSE METERon 05-22-2021 Glucose [Mass/Vol] 177 mg/dL High 85-125 [facility] Glucose [Mass/Vol] 185 mg/dL High 85-125 [facility] Glucose [Mass/Vol] 144 mg/dL High 85-125 [facility] Glucose [Mass/Vol] 127 mg/dL High 85-125 [facility] Glucose [Mass/Vol] 134 mg/dL High 85-125 [facility] Glucose [Mass/Vol] 137 mg/dL High 85-125 [facility] Glucose [Mass/Vol] 130 mg/dL High 85-125 [facility] Glucose [Mass/Vol] 166 mg/dL High 85-125 [facility] PANEL[facility] 05-22-2021 Iron [Mass/Vol] 32 ug/dL Low 65-175 [facility] Comment on above: Order Comment: Ayanna rodas: M Result Comment: Betsy ents treated with metal-binding drugs (e.g.deferoxamine) may have depressed iron values, as chelated iron may not properly react in the Siemens iron assay. Performed By: #### L 500.51271, L500.48209, L500.16800 #### [facility] [place] [address] IRON SAT 10 % Low 30-44 [facility] Comment on above: Order Comment: Ayanna Degroot Performed By: #### L 500.77240, L500.14597, L500.36210 #### [facility] [place] [address] TIBC 318 UG/DL Normal 221-481 [facility] Comment on above: Order Comment: Campu s: M Performed By: #### L 500.38720, L500.74817, L500.58764 #### [facility] [address] [place] [address] MAGNESIUMon 05-22-2021 Magnesium [Mass/Vol] 2.4 mg/dL Normal 1.6-2.6 [facility] Comment on above: Order Comment: Campu s: M Performed By: #### L 500.74649, L500.49996, L500.13345 #### [facility] [address] [place] [address] PHOSon 05-22-2021 Phosphate [Mass/Vol] 6.20 mg/dL High 2.5-4.9 [facility] Comment on above: Order Comment: Campu s: M Result Comment: Elev ated m-protein (paraprotein) levels in the serum may be exhibited in patients with monoclonal gammopathies, causing falsely elevated inorganic phosphorus results. Performed By: #### L 500.25968, L500.20853, L500.34952 #### [facility] [address] [place] [address] PROG.Anthony 05-22-2021 PROG.CARD [facility] Patient Name: SAKSHI KELLEY [address] [place] [address] Date of : [address] [address] Unit Number: [id number] Progress Note-Cardiology Patient Status: ADM IN Attending Doctor: Los Fuller DO Service Date: 05/22/21 1345 Subjective S: (2 ROS minimum) Patient complains of pleuritic chest pain. Patient denies any shortness of breath, palpitations, dizziness, near-syncope, or syncope. Patient is to walk the halls this evening. Objective (ROS) Nursing Vitals Vital Signs (Last) Result Date Time Pulse Ox 94 05/22 1230 B/P 118/66 05/22 1230 B/P Mean 87 05/22 1230 O2 Delivery NASAL CANNULA 05/22 1230 O2 Flow Rate 2L 05/22 1230 Temp 97.1 05/22 1230 Pulse 93 05/22 1230 Resp 20 05/22 1230 FiO2 40 05/21 1815 Vital Signs (24hr) Date Temp Pulse Resp B/P B/P Mean Pulse Ox FiO2 05/21-05/22 96.9-98.9 87-101 14-26 118-131/66-85 67-107 94-100 40-60 Physical Exam Physical Examination Notes General: Patient is alert and oriented x3 and is in no acute respiratory distress Neck: Negative hepatojugular reflux or jugular venous distention, negative carotid bruit. Lungs: Clear to auscultation b/l anteriorly and posteriorly, no wheezing, rales, or rhonchi. Diminished bases. Cardiac: Regular rhythm and rate, S1-S2 within normal limits, no murmurs, gallops or rubs appreciated. Abdomen: Soft, nontender, nondistended, bowel sounds are positive. Extremities: No edema, cyanosis, or clubbing. Psychiatry: Normal affect. Telemetry: Normal sinus rhythm, sinus tachycardia ECG: Sinus tachycardia at [address] elevation. Echocardiogram: TRANSTHORACIC ECHOCARDIOGRAM 05/20/21: Interpretation Summary SUPINE/POST CATH Ejection Fraction = 60-65%. There is Trace to mild tricuspid regurgitation. Left Ventricle: The left ventricular size, thickness and function are normal. Ejection Fraction = 60-65%. Left Ventricular Filling pattern is normal for age. Amador Gaspar MD 05/20/2021 Left Heart Catheterization LEFT HEART CATHETERIZATION, LEFT VENTRICULOGRAM, CORONARY ANGIOGRAPHY 05/20/21: IMPRESSION: 1. An 80% distal left main. 2. A 99% proximal left anterior descending prior to the 1st septal crossing tender. 3. Normal circumflex. 4. A 100% right coronary artery being filled by [id number] collaterals. 5. Normal left ventricular function. In light of these findings, feel at this time patient needs bypass surgery. Will go ahead and make her a surgical interventional call. __ Los Fuller DO Current Inpatient Medications: Medications Current Sig/Denilson Start time Last Medication Dose Route Stop Time Status Admin Acetaminophen 1,000 MG Q6HPRN PRN 05/21 1030 AC 05/22 (TYLENOL TAB) PO 0952 Albuterol Sulfate 2.5 MG Q2HPRN PRN 05/22 1030 AC (VENTOLIN/PROVENTIL INH 2.5MG/3ML INH.NEB) Amiodarone HCl 150 MG DIRECTED PRN 05/21 1030 AC (CORDARONE VIAL) IV Sodium Chloride 50 ML (Sodium Chloride 0.9%) Amiodarone HCl 450 MG DIRECTED PRN 05/21 1030 AC (CORDARONE VIAL) IV Sodium Chloride 250 ML (Sodium Chloride 0.9%) Aspirin 81 MG QDAYWM 05/22 0800 AC 05/22 (ECOTRIN TAB.EC) PO 0819 Calcium Chloride 10 ML DIRECTED PRN 05/21 1030 AC (calcium CHLORIDE IV 10% VIAL) Sodium Chloride 50 ML (Sodium Chloride 0.9%) Calcium Chloride 10 ML DIRECTED PRN 05/21 1030 AC (calcium CHLORIDE IV 10% D.SYR) Cefuroxime Sodium 1.5 GM Q12H 05/21 2100 AC 05/22 (ZINACEF VIAL) IV 05/22 2129 1043 Sodium Chloride 100 ML (Sodium Chloride 0.9%) Clopidogrel Bisulfate 75 MG QHS 05/22 2200 AC (PLAVIX TAB) PO Dextrose/Water 25 ML PRN PRN 05/22 1030 AC (DEXTROSE 50%/WATER IV ABBOJECT) Dextrose/Water See Dose DIRECTED PRN 05/21 1030 AC (DEXTROSE 50%/WATER Insts (1) IV ABBOJECT) Docusate Sodium 100 MG BID 05/22 0900 AC 05/22 (COLACE CAP) PO 0819 Famotidine 20 MG BID 05/21 2100 AC 05/22 (PEPCID VIAL) IV 05/23 2300 0819 Gabapentin 100 MG TID 05/21 1400 AC 05/22 (NEURONTIN CAP) PO 05/23 0901 1307 Heparin Sodium See Dose Q24H 05/22 0900 AC 05/22 (Porcine) Insts (2) IV 0823 (HEP-LOCK *10*UNITS/ ML IV D.SYR.PF) Heparin Sodium 5,000 UNIT Q12H 05/22 0900 AC 05/22 (Porcine) SC 0819 (HEPARIN D.SYR) Hydroxyzine Pamoate 25 MG TIDPRN PRN 05/21 1030 AC 05/22 (VISTARIL CAP) PO 0953 Insulin Human Lispro See Dose WMHS 05/22 1130 AC (humaLOG/novoLOG PEN) Insts (3) SC Magnesium Oxide 400 MG QDAY 05/22 0900 AC 05/22 (MAG-OX TAB) PO 0819 Magnesium Sulfate 50 ML DIRECTED PRN 05/21 1030 AC (Magnesium Sulfate IV 2gm/50ml premix) Magnesium Sulfat (more content not included)... Normal [facility] Progress Note-Cardiology Normal [facility] PROG.[facility] 05-22-2021 PROG.CTS [facility] Patient Name: SAKSHI KELLEY [address] Date of : [address] [address] Unit Number: [id number] Progress Note-CTS Patient Status: DIS IN Attending Doctor: Hunter Davila MD Service Date: 05/22/21926 Subjective S: (2 ROS minimum) c/o of chest tube pain. states he wants his CT removed. Objective (ROS) Nursing Vitals Vital Signs (Last) Result Date Time Pulse Ox 97 05/22 0800 B/P 131/85 05/22 0800 B/P Mean 105 05/22 0800 O2 Delivery NASAL CANNULA 05/22 0800 O2 Flow Rate 2L 05/22 0800 Temp 97.0 05/22 0800 Pulse 95 05/22 0800 Resp 20 05/22 0800 FiO2 40 05/21 1815 Vital Signs (24hr) Date Temp Pulse Resp B/P B/P Mean Pulse Ox FiO2 05/21-05/22 96.9-98.9 87-101 14-26 131/85 67-107 95-100 40-60 Physical Exam Neurological / Psychiatric Alert, Orientation X3, Affect Normal Respiratory CTAB upper lung escalante, decreased bases. + CT s/s drainage no air leak. Cardiovascular Heart RRR, Pulse Intact Gastrointestinal Tinkling BS,soft, NT Musculoskeletal No Edema Skin Warm / Dry, Surgical DDI. Current Inpatient Medications: Medications Current Sig/Denilson Start time Last Medication Dose Route Stop Time Status Admin Acetaminophen 1,000 MG Q6HPRN PRN 05/21 1030 AC 05/21 (TYLENOL TAB) PO 2259 Albuterol Sulfate 2.5 MG Q2HPRN PRN 05/22 1030 AC (VENTOLIN/PROVENTIL INH 2.5MG/3ML INH.NEB) Amiodarone HCl 150 MG DIRECTED PRN 05/21 1030 AC (CORDARONE VIAL) IV Sodium Chloride 50 ML (Sodium Chloride 0.9%) Amiodarone HCl 450 MG DIRECTED PRN 05/21 1030 AC (CORDARONE VIAL) IV Sodium Chloride 250 ML (Sodium Chloride 0.9%) Aspirin 81 MG QDAYWM 05/22 0800 AC 05/22 (ECOTRIN TAB.EC) PO 0819 Calcium Chloride 10 ML DIRECTED PRN 05/21 1030 AC (calcium CHLORIDE IV 10% VIAL) Sodium Chloride 50 ML (Sodium Chloride 0.9%) Calcium Chloride 10 ML DIRECTED PRN 05/21 1030 AC (calcium CHLORIDE IV 10% D.SYR) Cefuroxime Sodium 1.5 GM Q12H 05/21 2100 AC 05/21 (ZINACEF VIAL) IV 05/22 Sodium Chloride 100 ML (Sodium Chloride 0.9%) Clopidogrel Bisulfate 75 MG QHS 05/22 2200 AC (PLAVIX TAB) PO Dextrose/Water 25 ML PRN PRN 05/22 1030 AC (DEXTROSE 50%/WATER IV ABBOJECT) Dextrose/Water See Dose DIRECTED PRN 05/21 1030 AC (DEXTROSE 50%/WATER Insts (1) IV ABBOJECT) Docusate Sodium 100 MG BID 05/22 0900 AC 05/22 (COLACE CAP) PO 0819 Famotidine 20 MG BID 05/21 2100 AC 05/22 (PEPCID VIAL) IV 05/23 2300 0819 Gabapentin 100 MG TID 05/21 1400 AC 05/22 (NEURONTIN CAP) PO 05/23 0901 0825 Heparin Sodium See Dose Q24H 05/22 0900 AC 05/22 (Porcine) Insts (2) IV 0823 (HEP-LOCK *10*UNITS/ ML IV D.SYR.PF) Heparin Sodium 5,000 UNIT Q12H 05/22 0900 AC 05/22 (Porcine) SC 0819 (HEPARIN D.SYR) Hydroxyzine Pamoate 25 MG TIDPRN PRN 05/21 1030 AC 05/21 (VISTARIL CAP) PO 2259 Insulin Human Lispro See Dose WMHS 05/22 1130 AC (humaLOG/novoLOG PEN) Insts (3) SC Magnesium Oxide 400 MG QDAY 05/22 0900 AC 05/22 (MAG-OX TAB) PO 0819 Magnesium Sulfate 50 ML DIRECTED PRN 05/21 1030 AC (Magnesium Sulfate IV 2gm/50ml premix) Magnesium Sulfate 50 ML PRN PRN 05/21 1030 AC 05/21 (Magnesium Sulfate IV 2206 2gm/50ml premix) Melatonin 5 MG QHS 05/21 2200 AC 05/21 (MELATONIN TAB) PO 210 Methocarbamol 500 MG Q6HPRN PRN 05/21 1030 AC 05/22 (ROBAXIN TAB) PO 0410 Metoprolol Tartrate 12.5 MG BID 05/22 0900 AC 05/22 (LOPRESSOR TAB) PO 0821 Ondansetron HCl 4 MG Q6HPRN PRN 05/21 1030 AC (ZOFRAN VIAL) IV Oxycodone HCl 10 MG Q4HPRN PRN 05/21 2330 AC 05/22 (OXYIR TAB) PO 0821 Oxycodone HCl 5 MG Q4HPRN PRN 05/21 1030 AC 05/21 (OXYIR TAB) PO 2108 Pantoprazole Sodium 40 MG QDAYAC 05/24 0700 AC (PROTONIX TAB) PO Polyethylene Glycol 17 GM BID 05/22 0900 AC 05/22 (MIRALAX PACKT) PO 0819 Potassium 25 MEQ PRN PRN 05/21 1030 AC Bicarbonate/Citric PO Acid (Klor-con-Ef 25MEQ TAB.EF (ORANGE)) Potassium Chloride 20 MEQ PRN PRN 05/21 1030 AC (potassium (KCL) IV CHLORIDE VIAL) Sodium Chloride 50 ML (Sodium Chloride 0.9%) Potassium Chloride 40 MEQ PRN PRN 05/21 1030 AC (K-DUR TAB.SA) PO Sodium Bicarbonate See Dose DIRECTED PRN 05/21 1030 AC (SODIUM BICARB 8.4% Insts (4) IV ABBOJECT D.SYR) Sodium Chloride 3 ML Q8H 05/21 1400 AC 05/22 (Sodium Chloride IV 0818 0.9% FLUSH D.SYR) Sodium Chloride 3 ML PRN PRN 05/21 1030 AC (Sodium Chloride IV 0.9% FLUSH D.SYR) (more content not included)... Normal [facility] Progress Note-CTS Normal [facility] ABGOon 05-21-2021 Body temperature 98.6 [degF] Normal [facility] Comment on above: Performed By: #### L 500.25522, L500.45543, L500.65439, L500.42498 #### [facility] [address] [place] [address]78[address] HCO3 (Bld) [Moles/Vol] 27.2 mmol/L High 22-26 [facility] Comment on above: Performed By: #### L 500.44334, L500.77096, L500.13629, L500.84782 #### [facility] [address] [place] [address] 50446 Hematocrit (Bld) [Volume fraction] 30 % Low 41.0-53.0 [facility] Comment on above: Performed By: #### L 500.85319, L500.69606, L500.33498, L500.18040 #### [facility] [address] [place] [address] 82887 Hemoglobin (Bld) [Mass/Vol] 10.0 g/dL Low 13.5-17.5 [facility] Comment on above: Performed By: #### L 500.32858, L500.63065, L500.38333, L500.11123 #### [facility] [address] [place], [place] [address] POC ABG BE 1.7 MMOL/L Normal -2.0-2.0 [facility] Comment on above: Performed By: #### L 500.31515, L500.98746, L500.95765, L500.19029 #### [facility] [address] [place] [address] 12765 POC ABG COHGB 1.3 % Normal 0-10 [facility] Comment on above: Performed By: #### L 500.21181, L500.25032, L500.83105, L500.94618 #### [facility] [address] [place] [address] 13499 POC ABG ICA 1.48 MMOL/L Critically high 1.13-1.32 [facility] Comment on above: Performed By: #### L 500.05097, L500.62221, L500.16848, L500.27133 #### [facility] [address] [place] [address] POC ABG MET HGB 1.4 % Normal 0.4-1.5 [facility] Comment on above: Performed By: #### L 500.53551, L500.96681, L500.61893, L500.68423 #### [facility] [address] [place] [address] POC ABG PO2 258 MMHG High 80-100 [facility] Comment on above: Performed By: #### L 500.18069, L500.12361, L500.13496, L500.88303 #### [facility] [address] [place] [address] 39207 POC PCO2 46 MMHG High 35-45 [facility] Comment on above: Performed By: #### L 500.48861, L500.40286, L500.65765, L500.10412 #### [facility] [address] [place], [place] [address] POC REDUCED HGB 0.6 % Normal 0-5 [facility] Comment on above: Performed By: #### L 500.01898, L500.09401, L500.28688, L500.34636 #### [facility] [address] [place] [address] 56071 POCABG O2HB SAT 96.7 % Normal 90-100 [facility] Comment on above: Performed By: #### L 500.65980, L500.45916, L500.36407, L500.40843 #### [facility] [address] [place] [address] POCPH 7.38 Normal 7.35-7.45 [facility] Comment on above: Performed By: #### L 500.81537, L500.08248, L500.45486, L500.80003 #### [facility] [address] [place] [address] Potassium [Moles/Vol] 4.2 mmol/L Normal 3.5-5.0 [facility] Comment on above: Performed By: #### L 500.94733, L500.21665, L500.45338, L500.89022 #### [facility] [address] [place] [address] Sodium [Moles/Vol] 137 mmol/L Normal 136-148 [facility] Comment on above: Performed By: #### L 500.43633, L500.88706, L500.84038, L500.13381 #### [facility] [address] [place] [address] 41629 Body temperature 98.6 [degF] Normal [facility] Comment on above: Performed By: #### L 500.54797, L500.95843, L500.27333, L500.24915 #### [facility] [address] [place] [address] HCO3 (Bld) [Moles/Vol] 27.8 mmol/L High 22-26 [facility] Comment on above: Performed By: #### L 500.94218, L500.70889, L500.84034, L500.80014 #### [facility] [address] [place] [address] 27549 Hematocrit (Bld) [Volume fraction] 32 % Low 41.0-53.0 [facility] Comment on above: Performed By: #### L 500.62072, L500.53723, L500.35234, L500.84084 #### [facility] [address] [place] [address] Hemoglobin (Bld) [Mass/Vol] 10.5 g/dL Low 13.5-17.5 [facility] Comment on above: Performed By: #### L 500.35184, L500.41144, L500.93043, L500.29587 #### [facility] [address] [place] [address] POC ABG BE 2.4 MMOL/L High -2.0-2.0 [facility] Comment on above: Performed By: #### L 500.55282, L500.76014, L500.43764, L500.86942 #### [facility] [address] [place] [address] POC ABG COHGB 1.3 % Normal 0-10 [facility] Comment on above: Performed By: #### L 500.58716, L500.58012, L500.74039, L500.13131 #### [facility] [address] [place] [address] POC ABG ICA 1.28 MMOL/L Normal 1.13-1.32 [facility] Comment on above: Performed By: #### L 500.45524, L500.83981, L500.34315, L500.77332 #### [facility] [address] [place], [place] [address] POC ABG MET HGB 1.4 % Normal 0.4-1.5 [facility] Comment on above: Performed By: #### L 500.22889, L500.12522, L500.94219, L500.40589 #### [facility] [address] [place] [address] POC ABG PO2 558 MMHG Critically high 80-100 [facility] Comment on above: Performed By: #### L 500.66735, L500.25160, L500.26859, L500.02540 #### [facility] [address] [place] [address] 97578 POC PCO2 46 MMHG High 35-45 [facility] Comment on above: Performed By: #### L 500.13631, L500.40609, L500.12550, L500.48488 #### [facility] [address] [place] [address] 75362 POC REDUCED HGB 0.4 % Normal 0-5 [facility] Comment on above: Performed By: #### L 500.15703, L500.51659, L500.48089, L500.79274 #### [facility] [address] [place] [address] POCABG O2HB SAT 96.9 % Normal 90-100 [facility] Comment on above: Performed By: #### L 500.21305, L500.25576, L500.23173, L500.72524 #### [facility] [address] [place] [address] 36331 POCPH 7.39 Normal 7.35-7.45 [facility] Comment on above: Performed By: #### L 500.53047, L500.34026, L500.70245, L500.11176 #### [facility] [address] [place] [address] 02911 Potassium [Moles/Vol] 4.5 mmol/L Normal 3.5-5.0 [facility] Comment on above: Performed By: #### L 500.52330, L500.11807, L500.90440, L500.14917 #### [facility] [address] [place] [address] Sodium [Moles/Vol] 136 mmol/L Normal 136-148 [facility] Comment on above: Performed By: #### L 500.72363, L500.86567, L500.46971, L500.97414 #### [facility] [address] [place] [address] 12311 Body temperature 98.6 [degF] Normal [facility] Comment on above: Performed By: #### L 500.65283, L500.84064, L500.82231 #### [facility] [address] [place] [address] 18664 HCO3 (Bld) [Moles/Vol] 27.3 mmol/L High 2226 [facility] Comment on above: Performed By: #### L 500.65787, L500.58379, L500.32122 #### [facility] [address] [place] [address] HCO3 (Bld) [Moles/Vol] 30.4 mmol/L High [address] [place] [address] Comment on above: Performed By: #### L 500.33747, L500.63797, L500.55884 #### [facility] [address] [place] [address] 21181 Hematocrit (Bld) [Volume fraction] 32 % Low 41.0-53.0 [facility] Comment on above: Performed By: #### L 500.84479, L500.31933, L500.10899 #### [facility] [address] [place] [address] 41558 Hematocrit (Bld) [Volume fraction] 41 % Normal 41.0-53.0 [facility] Comment on above: Performed By: #### L 500.19255, L500.61738, L500.13258 #### [facility] [address] [place], [place] [address] Hemoglobin (Bld) [Mass/Vol] 10.5 g/dL Low 13.5-17.5 [facility] Comment on above: Performed By: #### L 500.07031, L500.53047, L500.05575 #### [facility] [address] [place] [address] 61194 Hemoglobin (Bld) [Mass/Vol] 13.6 g/dL Normal 13.5-17.5 [facility] Comment on above: Performed By: #### L 500.09475, L500.78465, L500.15157 #### [facility] [address] [place] [address] POC ABG BE 2.3 MMOL/L High -2.0-2.0 [facility] Comment on above: Performed By: #### L 500.97829, L500.01528, L500.83446 #### [facility] [address] [place] [address] POC ABG BE 3.4 MMOL/L High -2.0-2.0 [facility] Comment on above: Performed By: #### L 500.53807, L500.54940, L500.73628 #### [facility] [address] [place] [address] POC ABG COHGB 1.1 % Normal 0-10 [facility] Comment on above: Performed By: #### L 500.58343, L500.93380, L500.06490 #### [facility] [address] [place] [address] 23892 POC ABG COHGB 1.2 % Normal 0-10 [facility] Comment on above: Performed By: #### L 500.02647, L500.21508, L500.09903 #### [facility] [address] [place], [place] [address] POC ABG ICA 0.99 MMOL/L Low 1.13-1.32 [facility] Comment on above: Performed By: #### L 500.03947, L500.01210, L500.72392 #### [facility] [address] [place] [address] 25542 POC ABG ICA 1.14 MMOL/L Normal 1.13-1.32 [facility] Comment on above: Performed By: #### L 500.23375, L500.91109, L500.41957 #### [facility] [address] [place] [address] POC ABG MET HGB 1.5 % Normal 0.4-1.5 [facility] Comment on above: Performed By: #### L 500.08397, L500.20168, L500.41661 #### [facility] [address] [place] [address] POC ABG MET HGB 1.8 % High 0.4-1.5 [facility] Comment on above: Performed By: #### L 500.22017, L500.60194, L500.88334 #### [facility] [address] [place], [place] [address] POC ABG PO2 566 MMHG Critically high 80-100 [facility] Comment on above: Performed By: #### L 500.22860, L500.33219, L500.17931 #### [facility] [address] [place] [address] 59686 POC ABG PO2 440 MMHG Critically high 80-100 [facility] Comment on above: Performed By: #### L 500.86578, L500.24869, L500.98727 #### [facility] [address] [place], [place] [address] POC PCO2 43 MMHG Normal 35-45 [facility] Comment on above: Performed By: #### L 500.40853, L500.19598, L500.10679 #### [facility] [address] [place] [address] 79978 POC PCO2 55 MMHG High 35-45 [facility] Comment on above: Performed By: #### L 500.84805, L500.54993, L500.47556 #### [facility] [address] [place], [place] [address] POC REDUCED HGB 0.6 % Normal 0-5 [facility] Comment on above: Performed By: #### L 500.17606, L500.68693, L500.58001 #### [facility] [address] [place], [place] [address] POC REDUCED HGB 1.1 % Normal 0-5 [facility] Comment on above: Performed By: #### L 500.06589, L500.69206, L500.59017 #### [facility] [address] [place] [address] 74417 POCABG O2HB SAT 96.7 % Normal 90-100 [facility] Comment on above: Performed By: #### L 500.59513, L500.88669, L500.43084 #### [facility] [address] [place] [address] 65550 POCABG O2HB SAT 95.9 % Normal 90-100 [facility] Comment on above: Performed By: #### L 500.86248, L500.03693, L500.55587 #### [facility] [address] [place], [place] [address] POCPH 7.41 Normal 7.35-7.45 [facility] Comment on above: Performed By: #### L 500.08877, L500.85019, L500.71612 #### [facility] [address] [place] [address] POCPH 7.35 Normal 7.35-7.45 [facility] Comment on above: Performed By: #### L 500.74850, L500.81228, L500.44425 #### [facility] [address] [place] [address] Potassium [Moles/Vol] 4.0 mmol/L Normal 3.5-5.0 [facility] Comment on above: Performed By: #### L 500.48862, L500.70285, L500.29867 #### [facility] [address] [place] [address] Sodium [Moles/Vol] 137 mmol/L Normal 136-148 [facility] Comment on above: Performed By: #### L 500.72602, L500.06183, L500.47730 #### [facility] [address] [place] [address] Sodium [Moles/Vol] 136 mmol/L Normal 136-148 [facility] Comment on above: Performed By: #### L 500.04461, L500.46477, L500.69439 #### [facility] [address] [place] [id number] Body temperature 98.6 [degF] Normal [facility] Comment on above: Performed By: #### L 500.99296, L500.81411, L500.77211, L500.35116 #### [facility] [address] [place] [address] HCO3 (Bld) [Moles/Vol] 28.5 mmol/L High 22-26 [facility] Comment on above: Performed By: #### L 500.00249, L500.22021, L500.18735, L500.44842 #### [facility] [address] [place], [place] [id number] Hematocrit (Bld) [Volume fraction] 42 % Normal 41.0-53.0 [facility] Comment on above: Performed By: #### L 500.18191, L500.45902, L500.00089, L500.28432 #### [facility] [address] [place] [address] Hemoglobin (Bld) [Mass/Vol] 13.9 g/dL Normal 13.5-17.5 [facility] Comment on above: Performed By: #### L 500.38647, L500.83498, L500.34799, L500.48561 #### [facility] [address] [place] [address] POC ABG BE 3.9 MMOL/L High -2.0-2.0 [facility] Comment on above: Performed By: #### L 500.95151, L500.47128, L500.06591, L500.18374 #### [facility] [address] [place] [address] POC ABG COHGB 1.4 % Normal 0-10 [facility] Comment on above: Performed By: #### L 500.22696, L500.56947, L500.98840, L500.06065 #### [facility] [address] [place] [address] POC ABG ICA 1.13 MMOL/L Normal 1.13-1.32 [facility] Comment on above: Performed By: #### L 500.69680, L500.69765, L500.92918, L500.35018 #### [facility] [address] [place], [place] [id number] POC ABG MET HGB 1.3 % Normal 0.4-1.5 [facility] Comment on above: Performed By: #### L 500.35254, L500.82125, L500.16870, L500.94102 #### [facility] [place] [address] POC ABG PO2 470 MMHG Critically high 80-100 [facility] Comment on above: Performed By: #### L 500.75473, L500.39281, L500.22257, L500.31320 #### [facility] [address] [place], [place] [address] POC PCO2 42 MMHG Normal 35-45 [facility] Comment on above: Performed By: #### L 500.93199, L500.82787, L500.12989, L500.42569 #### [facility] [address] [place] [address] POC REDUCED HGB 1.0 % Normal 0-5 [facility] Comment on above: Performed By: #### L 500.59460, L500.39272, L500.36347, L500.29289 #### [facility] [address] [place] [address] POCABG O2HB SAT 96.3 % Normal 90-100 [facility] Comment on above: Performed By: #### L 500.64795, L500.50644, L500.78017, L500.99386 #### [facility] [address] [place] [address] POCPH 7.44 Normal 7.35-7.45 [facility] Comment on above: Performed By: #### L 500.64957, L500.64932, L500.71517, L500.96877 #### [facility] [address] [place] [address] Potassium [Moles/Vol] 4.2 mmol/L Normal 3.5-5.0 [facility] Comment on above: Performed By: #### L 500.35620, L500.31277, L500.96826, L500.85707 #### [facility] [address] [place], [place] [address] Sodium [Moles/Vol] 135 mmol/L Low 136-148 [facility] Comment on above: Performed By: #### L 500.91282, L500.58976, L500.84149, L500.28105 #### [facility] [address] [place] [address] ABGPEon 05-21-2021 ABG BE -0.5 MML/L Normal -2.0-2.0 [facility] Comment on above: Order Comment: Campu s: M Performed By: #### L 550.64843 #### [facility] [address] [place] [address] ABG COHBA 0.7 % Normal 0-10 [facility] Comment on above: Order Comment: Campu s: M Performed By: #### L 550.73532 #### [facility] [address] [place] [address] ABG MET 0.3 % Low 0.4-1.5 [facility] Comment on above: Order Comment: Campu s: M Performed By: #### L 550.97940 #### [facility] [address] [place], [place] [address] ABG O2 CAPACITY 17.6 mL/dL Normal [facility] Comment on above: Order Comment: Campu s: M Performed By: #### L 550.01979 #### [facility] [address] [place], [place] [address] ABG O2 CONTENT 18.0 mL/dL Normal 15.7-21.6 [facility] Comment on above: Order Comment: Campu s: M Performed By: #### L 550.30263 #### [facility] [address] [place] [address] ABG O2HB SAT 98.0 % Normal 90-100 [facility] Comment on above: Order Comment: Campu s: M Performed By: #### L 550.01992 #### [facility] [address] [place] [address] ABG PCO2 32.8 MMHG Low 35-45 [facility] Comment on above: Order Comment: Campu s: M Performed By: #### L 550.79374 #### [facility] [address] [place] [address] ABG PH 7.46 High 7.35-7.45 [facility] Comment on above: Order Comment: Campu s: M Performed By: #### L 550.86550 #### [facility] [address] [place] [address] ABG PO2 168 MMHG High 80-100 [facility] Comment on above: Order Comment: Campu s: M Performed By: #### L 550.70174 #### [facility] [address] [place] [address] ABG REDUCED HGB 1.0 % Normal 0-5 [facility] Comment on above: Order Comment: Campu s: M Performed By: #### L 550.69478 #### [facility] [address] [place] [address] FRANCES TEST N/A Normal [facility] Comment on above: Order Comment: Campu s: M Performed By: #### L 550.54387 #### [facility] [place] [address] Body temperature 96.98 [degF] Normal [facility] Comment on above: Order Comment: Campu s: M Performed By: #### L 550.85714 #### [facility] [address] [place] [id number] EQUIPMENT VENTILATOR Normal [facility] Comment on above: Order Comment: Campu s: M Performed By: #### L 550.13768 #### [facility] [address] [place] [id number] FIO2 60 % Normal [facility] Comment on above: Order Comment: Campu s: M Performed By: #### L 550.44460 #### [facility] [address] [place] [address] HCO3 (Bld) [Moles/Vol] 23.0 mmol/L Normal 22-26 M [facility] Comment on above: Order Comment: Campu s: M Performed By: #### L 550.57017 #### [facility] [address] [place] [address] Hemoglobin (Bld) [Mass/Vol] 12.8 g/dL Normal 10-16 [facility] Comment on above: Order Comment: Campu s: M Performed By: #### L 550.99334 #### [facility] [address] [place] [address] IONIZED CA 1.29 MMOL/L Normal 1.13-1.32 [facility] Comment on above: Order Comment: Campu s: M Performed By: #### L 550.25163 #### [facility] [address] [place] [address] PEEP 5.0 CMH2O Normal [facility] Comment on above: Order Comment: Campu s: M Performed By: #### L 550.62231 #### [facility] [address] [place] [address] Potassium [Moles/Vol] 4.0 mmol/L Normal 3.5-5.0 [facility] Comment on above: Order Comment: Campu s: M Performed By: #### L 550.88401 #### [facility] [address] [place] [address] RESP. RATE Normal [facility] Comment on above: Order Comment: Campu s: M Performed By: #### L 550.96287 #### [facility] [place] [address] SAMPLE SITE ARTERIAL LINE Normal [facility] Comment on above: Order Comment: Campu s: M Performed By: #### L 550.81641 #### [facility] [address] [place] [address] SAMPLE TYPE ARTERIAL Normal [facility] Comment on above: Order Comment: Campu s: M Performed By: #### L 550.22629 #### [facility] [address] [place] [address] 11922 Sodium [Moles/Vol] 137 mmol/L Normal 136-148 [facility] Comment on above: Order Comment: Campu s: M Performed By: #### L 550.24645 #### [facility] [address] [place] [address] 31038 TIDAL VOLUME 0.600/0.[address] [facility] Comment on above: Order Comment: Campu s: M Performed By: #### L 550.02826 #### [facility] [address] [place] [address] VENT MODE VOLUME VENT PLUS Normal [facility] Comment on above: Order Comment: Campu s: M Performed By: #### L 550.43059 #### [facility] [address] [place] [address] ABGPEGLAon 05-21-2021 ABG BE -1.5 MML/L Normal -2.0-2.0 [facility] Comment on above: Performed By: #### L 500.91658, L500.32946, L500.10721 #### [facility] [address] [place] [address] ABG COHBA 0.9 % Normal 0-10 [facility] Comment on above: Performed By: #### L 500.89174, L500.87699, L500.22132 #### [facility] [place] [address] ABG GLU 147 MG/DL High 60-80 [facility] Comment on above: Performed By: #### L 500.73781, L500.34914, L500.97344 #### [facility] [place] [address] ABG MET 0.2 % Low 0.4-1.5 [facility] Comment on above: Performed By: #### L 500.30308, L500.47994, L500.27197 #### [facility] [address] [place] [address] ABG O2 CAPACITY 20.1 mL/dL Normal [facility] Comment on above: Performed By: #### L 500.66997, L500.31189, L500.30373 #### [facility] [place] [address] ABG O2 CONTENT 20.0 mL/dL Normal 15.7-21.6 [facility] Comment on above: Performed By: #### L 500.81505, L500.21656, L500.87766 #### [facility] [place] [address] ABG O2HB SAT 96.7 % Normal 90-100 [facility] Comment on above: Performed By: #### L 500.48636, L500.57447, L500.25265 #### [facility] [place] [address] ABG PCO2 43.0 MMHG Normal 35-45 [facility] Comment on above: Performed By: #### L 500.59976, L500.65949, L500.20664 #### [facility] [address] [place] [address] ABG PH 7.36 Normal 7.35-7.45 [facility] Comment on above: Performed By: #### L 500.23989, L500.11896, L500.51748 #### [facility] [address] [place] [address] ABG PO2 116 MMHG High 80-100 [facility] Comment on above: Performed By: #### L 500.22236, L500.25690, L500.67221 #### [facility] [address] [place] [address] ABG REDUCED HGB 2.2 % Normal 0-5 [facility] Comment on above: Performed By: #### L 500.71118, L500.92667, L500.30899 #### [facility] [address] [place], [place] [address] FRANCES TEST N/A Normal [facility] Comment on above: Performed By: #### L 500.80659, L500.65338, L500.51310 #### [facility] [address] [place] [address] Body temperature 98.96 [degF] Normal [facility] Comment on above: Performed By: #### L 500.73548, L500.34851, L500.03394 #### [facility] [address] [place] [address] EQUIPMENT VENTILATOR Normal [facility] Comment on above: Performed By: #### L 500.62922, L500.16686, L500.52942 #### [facility] [address] [place], [place] [address] FIO2 40 % Normal [facility] Comment on above: Performed By: #### L 500.55741, L500.04498, L500.52573 #### [facility] [address] [place] [address]446 HCO3 (Bld) [Moles/Vol] 23.9 mmol/L Normal 22-26 M [facility] Comment on above: Performed By: #### L 500.47996, L500.60689, L500.18804 #### [facility] [place] [address] Hemoglobin (Bld) [Mass/Vol] 14.6 g/dL Normal 10-16 [facility] Comment on above: Performed By: #### L 500.52595, L500.60058, L500.22068 #### [facility] [address] [place] [address]54 IONIZED CA 1.26 MMOL/L Normal 1.13-1.32 [facility] Comment on above: Performed By: #### L 500.94502, L500.84786, L500.77078 #### [facility] [address] [place] [address]46 LACTATE BLOOD 1.80 MMOL/L Normal 0.40-2.00 [facility] Comment on above: Performed By: #### L 500.12783, L500.67360, L500.84793 #### [facility] [address] [place] [address]55 PEEP 5.0 CMH2O Normal [facility] Comment on above: Performed By: #### L 500.16488, L500.50131, L500.63786 #### [facility] [address] [place] [address] Potassium [Moles/Vol] 4.6 mmol/L Normal 3.5-5.0 [facility] Comment on above: Performed By: #### L 500.15604, L500.56295, L500.40609 #### [facility] [address] [place] [address] PSV 5.0 CMH2O Normal [facility] Comment on above: Performed By: #### L 500.76031, L500.08478, L500.82492 #### [facility] [address] [place] [address] 20711 SAMPLE SITE ARTERIAL LINE Normal [facility] Comment on above: Performed By: #### L 500.44494, L500.97266, L500.22574 #### [facility] [address] [place] [address] 21384 SAMPLE TYPE ARTERIAL Normal [facility] Comment on above: Performed By: #### L 500.42744, L500.45945, L500.14584 #### [facility] [address] [place] [address] Sodium [Moles/Vol] 135 mmol/L Low 136-148 [facility] Comment on above: Performed By: #### L 500.84648, L500.79096, L500.79845 #### [facility] [address] [place] [address] 12282 VENT MODE PSV Normal [facility] Comment on above: Performed By: #### L 500.41692, L500.08975, L500.86920 #### [facility] [address] [place] [address]303 BMPon 05-21-2021 Anion gap [Moles/Vol] 7 mmol/L Normal 5-16 [facility] Comment on above: Order Comment: Ayanna s: M Performed By: #### L 500.09526, L500.25995, L500.75350, L500.42099 #### [facility] [address] [place] [address] Calcium [Mass/Vol] 9.6 mg/dL Normal 8.5-10.5 [facility] Comment on above: Order Comment: Campu s: M Result Comment: NOTE NEW NORMAL RANGE DUE TO REAGENT CHANGE Performed By: #### L 500.02775, L500.82095, L500.21860, L500.43494 #### [facility] [address] [place] [address] Chloride [Moles/Vol] 108 mmol/L High 98-107 [facility] Comment on above: Order Comment: Campu s: M Performed By: #### L 500.75417, L500.04422, L500.98917, L500.96898 #### [facility] [place] [address] CO2 [Moles/Vol] 26.0 mmol/L Normal 21-32 [facility] Comment on above: Order Comment: Campu s: M Performed By: #### L 500.88548, L500.80164, L500.53979, L500.42907 #### [facility] [address] [place] [address]45 Creatinine [Mass/Vol] 0.81 mg/dL Normal 0.5-1.4 [facility] Comment on above: Order Comment: Campu s: M Result Comment: NOTE NEW NORMAL RANGE DUE TO REAGENT CHANGE Patients receiving either N-Acetylcysteine (NAC) or Metamizole prior to venipuncture, may have falsely depressed results. Performed By: #### L 500.68739, L500.15354, L500.73163, L500.87779 #### [facility] [place] [address] Glucose [Mass/Vol] 96 mg/dL Normal 70-100 [facility] Comment on above: Order Comment: Campu s: M Result Comment: 70-1 00- Normal Fasting; 100-125 Impaired Fasting; greater than 126 on more than one result- Diabetes. ADA guidelines. Results may be falsely elevated after the administration of Sulfapyridine. Results may be falsely depressed after the administration of Sulfasalazine. Performed By: #### L 500.24249, L500.41988, L500.22277, L500.81070 #### [facility] [place] [address] Potassium [Moles/Vol] 4.1 mmol/L Normal 3.5-5.1 [facility] Comment on above: Order Comment: Campu s: M Result Comment: Slig ht Hemolysis, Result may be affected. Performed By: #### L 500.59732, L500.78071, L500.41452, L500.34759 #### [facility] [address] [place] [address] Sodium [Moles/Vol] 141 mmol/L Normal 136-145 [facility] Comment on above: Order Comment: Campu s: M Performed By: #### L 500.22853, L500.72682, L500.12277, L500.43520 #### [facility] [address] [place] [address] Urea nitrogen [Mass/Vol] 10 mg/dL Normal 7-26 [facility] Comment on above: Order Comment: Campu s: M Performed By: #### L 500.89619, L500.52513, L500.98320, L500.53736 #### [facility] [address] [place] [address] Urea nitrogen/Creatinine [Mass ratio] 12 mg/mg Low 15-24 [facility] Comment on above: Order Comment: Campu s: M Performed By: #### L 500.07241, L500.19911, L500.04845, L500.17378 #### [facility] [address] [place] [address] CBCon 05-21-2021 Erythrocyte distribution width (RBC) [Ratio] 12.9 % Normal 11-14.5 [facility] Comment on above: Order Comment: Campu s: M Performed By: #### L 500.59919, L500.13304, L500.37182 #### [facility] [address] [place], [place] [address] Hematocrit (Bld) [Volume fraction] 42.9 % Normal 41.0-53.0 [facility] Comment on above: Order Comment: Campu s: M Performed By: #### L 500.65506, L500.94826, L500.54539 #### [facility] [address] [place] [address] Hemoglobin (Bld) [Mass/Vol] 14.4 g/dL Normal 13.5-17.5 [facility] Comment on above: Order Comment: Campu s: M Performed By: #### L 500.72595, L500.89009, L500.56504 #### [facility] [address] [place] [address] MCHC (RBC) [Mass/Vol] 33.6 g/dL Normal 32.0-36.0 [facility] Comment on above: Order Comment: Campu s: M Performed By: #### L 500.01097, L500.03170, L500.90021 #### [facility] [address] [place] [address] MCV (RBC) [Entitic vol] 89.4 fL Normal 80.0-99.0 [facility] Comment on above: Order Comment: Campu s: M Performed By: #### L 500.33637, L500.87141, L500.28756 #### [facility] [address] [place], [place] [address] Nucleated RBC/100 WBC (Bld) [Ratio] 0.0 % Normal Less than 1 [facility] Comment on above: Order Comment: Campu s: M Performed By: #### L 500.09245, L500.04317, L500.16602 #### [facility] [address] [place] [address] Platelet mean volume (Bld) [Entitic vol] 9.2 fL Low 9.4-12.4 [facility] Comment on above: Order Comment: Campu s: M Performed By: #### L 500.69408, L500.29736, L500.26269 #### [facility] [address] [place] [address] PLT 216 K/CU MM Normal 150-450 [facility] Comment on above: Order Comment: Campu s: M Performed By: #### L 500.85631, L500.19051, L500.97059 #### [facility] [address] [place] [address] RBC 4.80 M/CU MM Normal 4.50-6.00 [facility] Comment on above: Order Comment: Campu s: M Performed By: #### L 500.75792, L500.13181, L500.45186 #### [facility] [address] [place] [address] WBC 9.2 K/CUMM Normal 4.5-11.0 [facility] Comment on above: Order Comment: Campu s: M Performed By: #### L 500.56659, L500.10236, L500.79648 #### [facility] [address] [place] [address] CBC W/DIFFon 05-21-2021 BASO ABS 0.00 K/CU MM Normal 0-0.2 [facility] Comment on above: Order Comment: Campu s: M Performed By: #### L 500.16732, L500.62589, L500.46232 #### [facility] [address] [place] [address] Basophils/100 WBC (Bld) 0.2 % Normal 0-2 [facility] Comment on above: Order Comment: Campu s: M Performed By: #### L 500.04111, L500.22483, L500.54655 #### [facility] [address] [place] [address] EOS ABS 0.10 K/CU MM Normal 0-0.5 [facility] Comment on above: Order Comment: Campu s: M Performed By: #### L 500.62289, L500.96639, L500.93928 #### [facility] [address] [place] [address] Eosinophils/100 WBC (Bld) 0.9 % Normal 0-5 [facility] Comment on above: Order Comment: Campu s: M Performed By: #### L 500.65909, L500.92845, L500.34186 #### [facility] [address] [place] [address] Erythrocyte distribution width (RBC) [Ratio] 13.0 % Normal 11-14.5 [facility] Comment on above: Order Comment: Campu s: M Performed By: #### L 500.98665, L500.74107, L500.39347 #### [facility] [address] [place] [address] Hematocrit (Bld) [Volume fraction] 35.5 % Low 41.0-53.0 [facility] Comment on above: Order Comment: Campu s: M Performed By: #### L 500.11085, L500.42339, L500.33135 #### [facility] [address] [place] [address] Hemoglobin (Bld) [Mass/Vol] 11.9 g/dL Low 13.5-17.5 [facility] Comment on above: Order Comment: Campu s: M Performed By: #### L 500.97765, L500.79150, L500.81446 #### [facility] [address] [place] [address] IMMATR GRAN ABS 0.10 K/CU MM Normal Less than 2 [facility] Comment on above: Order Comment: Campu s: M Performed By: #### L 500.42731, L500.89049, L500.16771 #### [facility] [address] [place] [address] IMMATURE GRAN % 0.6 % Normal Less than 2 [facility] Comment on above: Order Comment: Campu s: M Performed By: #### L 500.10994, L500.69340, L500.89677 #### [facility] [address] [place] [address] LYMPH ABS 2.70 K/CU MM Normal 0.9-4.4 [facility] Comment on above: Order Comment: Campu s: M Performed By: #### L 500.35595, L500.69405, L500.47794 #### [facility] [address] [place] [address] Lymphocytes/100 WBC (Bld) 21.0 % Normal 20-40 [facility] Comment on above: Order Comment: Campu s: M Performed By: #### L 500.88060, L500.46276, L500.46449 #### [facility] [address] [place] [address] MCHC (RBC) [Mass/Vol] 33.5 g/dL Normal 32.0-36.0 [facility] Comment on above: Order Comment: Campu s: M Performed By: #### L 500.88753, L500.45614, L500.10324 #### [facility] [address] [place] [address] MCV (RBC) [Entitic vol] 91.5 fL Normal 80.0-99.0 [facility] Comment on above: Order Comment: Campu s: M Performed By: #### L 500.34352, L500.77585, L500.75375 #### [facility] [address] [place] [address] MONO ABS 0.90 K/CU MM Normal 0.1-1.1 [facility] Comment on above: Order Comment: Campu s: M Performed By: #### L 500.00473, L500.21380, L500.03342 #### [facility] [address] [place] [address] Monocytes/100 WBC (Bld) 7.0 % Normal 2-10 [facility] Comment on above: Order Comment: Campu s: M Performed By: #### L 500.30561, L500.06875, L500.37098 #### [facility] [address] [place] [address] NEUTROPHIL ABS 8.90 K/CU MM High 2.0-8.3 [facility] Comment on above: Order Comment: Campu s: M Performed By: #### L 500.79529, L500.50823, L500.17935 #### [facility] [address] [place] [address] Neutrophils/100 WBC (Bld) 70.3 % Normal 45-75 [facility] Comment on above: Order Comment: Campu s: M Performed By: #### L 500.12203, L500.59930, L500.02338 #### [facility] [address] [place] [address] Nucleated RBC/100 WBC (Bld) [Ratio] 0.0 % Normal Less than 1 [facility] Comment on above: Order Comment: Campu s: M Performed By: #### L 500.56291, L500.46655, L500.56279 #### [facility] [address] [place] [address] Platelet mean volume (Bld) [Entitic vol] 9.7 fL Normal 9.4-12.4 [facility] Comment on above: Order Comment: Campu s: M Performed By: #### L 500.94595, L500.96299, L500.90599 #### [facility] [address] [place] [address] PLT 119 K/CU MM Low 150-450 [facility] Comment on above: Order Comment: Campu s: M Performed By: #### L 500.09556, L500.81730, L500.00562 #### [facility] [address] [place] [address] RBC 3.88 M/CU MM Low 4.50-6.00 [facility] Comment on above: Order Comment: Campu s: M Performed By: #### L 500.20251, L500.91402, L500.74664 #### [facility] [address] [place] [address] WBC 12.6 K/CUMM High 4.5-11.0 [facility] Comment on above: Order Comment: Campu s: M Performed By: #### L 500.76127, L500.61196, L500.86088 #### [facility] [address] [place] [address] GFR ESTon 05-21-2021 IF AMER Greater than 60 Normal [facility] Comment on above: Order Comment: Campu s: M Performed By: #### L 500.83261, L500.88313, L500.10997, L500.23824 #### [facility] [address] [place] [address] IF non-AFR AMER Greater than 60 Normal [facility] Comment on above: Order Comment: Campu s: M Performed By: #### L 500.27555, L500.19188, L500.34058, L500.85317 #### [facility] [address] [place] [address] GLUCOSE METERon 05-21-2021 Glucose [Mass/Vol] 157 mg/dL High 85-125 [facility] Glucose [Mass/Vol] 108 mg/dL Normal 85-125 [facility] Glucose [Mass/Vol] 101 mg/dL Normal 85-125 [facility] Glucose [Mass/Vol] 103 mg/dL Normal 85-125 [facility] Glucose [Mass/Vol] 104 mg/dL Normal 85-125 [facility] Glucose [Mass/Vol] 111 mg/dL Normal 85-125 [facility] Glucose [Mass/Vol] 103 mg/dL Normal 85-125 [facility] Glucose [Mass/Vol] 146 mg/dL High 85-125 [facility] MAGNESIUMon 05-21-2021 Magnesium [Mass/Vol] 1.9 mg/dL Normal 1.6-2.6 [facility] Comment on above: Order Comment: Ayanna s: M Performed By: #### L 550.51418 #### [facility] [address] [place] [address] MRSA PCRon 05-21-2021 MRSA PCR Negative Normal NEGATIVE [facility] Comment on above: Order Comment: Ayanna s: M Result Comment: PLEA SE NOTE: TESTING DONE BY PCR TECHNOLOGY. Performed By: #### L 500.27792, L500.07749, L500.69022, L500.09467 #### [facility] [address] [place] [address] SA PCR Negative Normal NEGATIVE [facility] Comment on above: Order Comment: Ayanna s: M Result Comment: PLEA SE NOTE: TESTING DONE BY PCR TECHNOLOGY. Performed By: #### L 500.96111, L500.30200, L500.18348, L500.98641 #### [facility] [address] [place], [place] [address] PHOSon 05-21-2021 Phosphate [Mass/Vol] 5.40 mg/dL High 2.5-4.9 [facility] Comment on above: Order Comment: Ayanna s: Mikayla Result Comment: Elev ated m-protein (paraprotein) levels in the serum may be exhibited in patients with monoclonal gammopathies, causing falsely elevated inorganic phosphorus results. Performed By: #### L 500.81419, L500.00536, L500.32066, L500.50916 #### [facility] [address] [place] [address] PROG.Anthony 05-21-2021 PROG.[facility] Patient Name: SAKSHI KELLEY [address] [facility] [address] Date of : [address] [place], [place] [address] Unit Number: [id number] Progress Note-Cardiology Patient Status: ADM IN Attending Doctor: Los Fuller DO Service Date: 05/21/21 1539 Subjective S: (2 ROS minimum) Patient immediately postop. Patient remains intubated and sedated. Objective (ROS) Nursing Vitals Vital Signs (Last) Result Date Time Pulse Ox 100 05/21 1500 B/P Mean 82 05/21 1500 O2 Delivery VENTILATOR 05/21 1500 O2 Flow Rate 60 05/21 1500 Temp 97.1 05/21 1500 Pulse 91 05/21 1500 Resp 14 05/21 1500 FiO2 60 05/21 1416 B/P 139/85 05/21 0900 Vital Signs (24hr) Date Temp Pulse Resp B/P B/P Mean Pulse Ox FiO2 05/20-05/21 96.9-98.5 65-95 14-18 114-156/63-85 67-110 92-100 60 Physical Exam Physical Examination Notes Patient remains intubated and sedated. Lungs clear to auscultation bilaterally anteriorly. Heart rate and rhythm regular. Positive rub. No murmurs or gallops. Extremities without any edema, cyanosis, or clubbing. Telemetry: Normal sinus rhythm ECG: Normal sinus rhythm at [address] elevation Echocardiogram: TRANSTHORACIC ECHOCARDIOGRAM 05/20/21: Interpretation Summary SUPINE/POST CATH Ejection Fraction = 60-65%. There is Trace to mild tricuspid regurgitation. Left Ventricle: The left ventricular size, thickness and function are normal. Ejection Fraction = 60-65%. Left Ventricular Filling pattern is normal for age. Amador Gaspar MD 05/20/2021 Left Heart Catheterization LEFT HEART CATHETERIZATION, LEFT VENTRICULOGRAM, CORONARY ANGIOGRAPHY 05/20/21: IMPRESSION: 1. An 80% distal left main. 2. A 99% proximal left anterior descending prior to the 1st septal crossing tender. 3. Normal circumflex. 4. A 100% right coronary artery being filled by [id number] collaterals. 5. Normal left ventricular function. In light of these findings, feel at this time patient needs bypass surgery. Will go ahead and make her a surgical interventional call. __ Los Fuller, Current Inpatient Medications: Medications Current Sig/Denilson Start time Last Medication Dose Route Stop Time Status Admin Acetaminophen 1,000 MG Q6HPRN PRN 05/21 1030 AC (TYLENOL TAB) PO Albumin Human 200 ML DIRECTED PRN 05/21 1030 AC (ALBUMIN 25% VIAL) IV Albuterol Sulfate 2.5 MG Q2HPRN PRN 05/22 1030 AC (VENTOLIN/PROVENTIL INH 2.5MG/3ML INH.NEB) Amiodarone HCl 150 MG DIRECTED PRN 05/21 1030 AC (CORDARONE VIAL) IV Sodium Chloride 50 ML (Sodium Chloride 0.9%) Amiodarone HCl 450 MG DIRECTED PRN 05/21 1030 AC (CORDARONE VIAL) IV Sodium Chloride 250 ML (Sodium Chloride 0.9%) Aspirin 81 MG QDAYWM 05/22 0800 AC (ECOTRIN TAB.EC) PO Calcium Chloride 10 ML DIRECTED PRN 05/21 1030 AC (calcium CHLORIDE IV 10% VIAL) Sodium Chloride 50 ML (Sodium Chloride 0.9%) Calcium Chloride 10 ML DIRECTED PRN 05/21 1030 AC (calcium CHLORIDE IV 10% D.SYR) Cefuroxime Sodium 1.5 GM Q12H 05/21 2100 AC (ZINACEF VIAL) IV 05/22 2129 Sodium Chloride 100 ML (Sodium Chloride 0.9%) Clopidogrel Bisulfate 75 MG QHS 05/22 2200 AC (PLAVIX TAB) PO Dextrose/Water 25 ML PRN PRN 05/22 1030 AC (DEXTROSE 50%/WATER IV ABBOJECT) Dextrose/Water See Dose DIRECTED PRN 05/21 1030 AC (DEXTROSE 50%/WATER Insts (1) IV ABBOJECT) Docusate Sodium 100 MG BID 05/22 0900 AC (COLACE CAP) PO Epinephrine 8 MG TITRATE(SEE ANTONIO VF.. 05/21 1030 AC (EPINEPHRINE 1MG/ML IV AMP) Sodium Chloride 250 ML (Sodium Chloride 0.9%) Famotidine 20 MG BID 05/21 2100 AC (PEPCID VIAL) IV 05/23 2300 Gabapentin 100 MG TID 05/21 1400 AC (NEURONTIN CAP) PO 05/23 0901 Heparin Sodium See Dose Q24H 05/22 0900 AC (Porcine) Insts (2) IV (HEP-LOCK *10*UNITS/ ML IV D.SYR.PF) Heparin Sodium 5,000 UNIT Q12H 05/22 0900 AC (Porcine) SC (HEPARIN D.SYR) Hydroxyzine Pamoate 25 MG TIDPRN PRN 05/21 1030 AC (VISTARIL CAP) PO Insulin Human Lispro See Dose WMHS 05/22 1130 AC (humaLOG/novoLOG PEN) Insts (3) SC Insulin Human Regular 100 UNITS TITRATE(SEE ANTONIO VFS) 05/21 1030 AC (novoLIN R (humuLIN) IV VIAL) Sodium Chloride 100 ML (Sodium Chloride 0.9%) Lorazepam 1 MG Q1HPRN PRN 05/21 1030 AC (ATIVAN VIAL) IV Magnesium Oxide 400 MG QDAY 05/22 0900 AC (MAG-OX TAB) PO Magnesium Sulfate 50 ML DIRECTED PRN 05/21 1030 AC (Magnesium Sulfate IV 2gm/50ml premix) Magnesium Sulfate 50 ML PRN PRN 05/21 1030 AC (Magnesium Sulfate IV 2gm/50ml premix) Melatonin 5 MG QHS 05/21 2200 AC (MELATONIN TA (more content not included)... [facility] Progress Note-Cardiology [facility] PTTon 05-21-2021 aPTT Coag (Bld) [Time] 41.5 s High 22.0-31.5 [facility] Comment on above: Order Comment: Ayanna rdoas: Mikayla Result Comment: Ther apeutic Heparin Reference Range: High Dose: 46-75 seconds (DVT/PE) Low Dose: 39-60 seconds (Acute Coronary Syndrome) For low molecular weight heparin or danaparoid, monitoring is often NOT necessary, but the heparin assay, Xa inhibition assay (send-out) may be used in certain circumstances, as the PTT is generally insensitive to the effect of these agents. Direct thrombin inhibitors are becoming more widely utilized and these drugs are often monitored using the PTT. Performed By: #### L 300.60775 #### [facility] [address] [place] [address] aPTT Coag (Bld) [Time] 34.5 s High 22.0-31.5 [facility] Comment on above: Order Comment: Ayanna rodas: Mikayla Result Comment: Ther apeutic Heparin Reference Range: High Dose: 46-75 seconds (DVT/PE) Low Dose: 39-60 seconds (Acute Coronary Syndrome) For low molecular weight heparin or danaparoid, monitoring is often NOT necessary, but the heparin assay, Xa inhibition assay (send-out) may be used in certain circumstances, as the PTT is generally insensitive to the effect of these agents. Direct thrombin inhibitors are becoming more widely utilized and these drugs are often monitored using the PTT. Performed By: #### L 500.53198, L500.98774, L500.61586, L500.74692 #### [facility] [place] [address] John 05-21-2021 SURG - -------- Patient: SAKSHI KELLEY -------- SPECIMEN: [id number] Collection Date: 05/21/21 Received: 05/21/21 Status: WALI ValentinoJosué Dr.: Los Fuller DO # Othr. Dr.: Hunter Davila MD [facility]. .: MISCELLANEOUS DOCTOR Demetrius. Dr.: MELODY MCBRIDE Material for Examination: A RESECTION OF BULLAE PRE-OP DIAGNOSIS: SPONTANEOUS PNEUMOTHORAX POST-OP DIAGNOSIS: SAME SURGICAL PROCEDURE: CABG WITH LEFT LUNG RESECTION DIAGNOSIS A. Resection of bullae: Lung tissue exhibiting emphysematous changes with bullae formation associated with pigment laden macrophages, vascular congestion and surrounding attached fibroadipose tissue. GROSS DESCRIPTION The specimen is received fresh and labeled with the patient's name, ID and designated resection of bullae, is a small wedge-shaped portion of lung 1.0 g and 3.5 x 1.0 x 0.5 cm. The pleural surface is pink-red and has multiple rows and lines of destiny ranging in size from 2.3 to 3.0 cm. The multiple destiny are removed and the underlying tissue is inked blue. Only very little tissue remains after the removal of the destiny. The specimen is serially sectioned and has a no-red cut surface. No masses or nodules are identified. The specimen is entirely submitted in cassettes A1 and A2 after the removal of the staple lines. MICROSCOPIC DESCRIPTION Two Hector stained slides examined. COPIES TO: Los Fuller Serrie C MD MISCELLANEOUS DOCTOR MELODY MCBRIDE Signed Verified/Reviewed by PATTI BRIGGS MD 05/24/21 This dictation was created using voice recognition software. Phonetic and/or minor grammatical errors may exist. -------- [facility] NAME: SAKSHI KELLEY Pathology and Laboratory Medicine UNIT#: [id number] LOC: [facility] Straight Knife Machine Cutter: Mendy Honeycutt M.D. [facility]#: [id number] ROOM/BED: [place] [address] [facility] : 70 AGE/SEX: 51/M ORD.Hunter Meeks MD END OF REPORT Normal [facility] ABDOMEN OR KUBon 05-20-2021 ABDOMEN OR KUB ABDOMEN OR KUB Ordering Physician: Marina Spencer 05/21/2021 2:17 PM ABDOMEN/KUB: Clinical Statement: Verify OG placement Comparison: Portable chest x-ray 05/20/2021 FINDINGS: There is partial visualization of the Kent-Shirley catheter, median sternotomy wires, mediastinal drains and pleural drains. The enteric tube projects appropriately over the body of the stomach. The bowel gas pattern is nonobstructive. There are no abnormal soft tissue outlines or calcifications. The osseous structures are unremarkable. IMPRESSION: Appropriately positioned enteric tube. Report was faxed at the time of dictation. Dictated by Rn Placement: Vanessa Baird DO I, Millicent David MD PhD, have supervised the procedure and/or image review, and agree with the above interpretation and report. ---- Electronic Signature on File ---- Signed By: Millicent David MD PhD [email or web address] Dictated: 05/21/2021 2:46 PM Signed: 05/21/2021 3:01 PM Reported By: MILLICENT DAVID M.D. Signed By: MILLICENT DAVID M.D. Normal [facility] ABGPon 05-20-2021 ABG BE 1.2 MML/L Normal -2.0-2.0 [facility] Comment on above: Order Comment: Ayanna rodas: Mikayla Performed By: #### L 500.40219, L500.57676, L500.79623 #### [facility] [address] [place] [address]# [phone] ABG COHBA 3.4 % Normal 0-10 [facility] Comment on above: Order Comment: Campu s: M Performed By: #### L 500.03381, L500.94936, L500.91339 #### [facility] [place] [address] ABG MET 0.4 % Normal 0.4-1.5 [facility] Comment on above: Order Comment: Campu s: M Performed By: #### L 500.34065, L500.72410, L500.32565 #### [facility] [address] [place] [address] ABG O2 CAPACITY 20.6 mL/dL Normal [facility] Comment on above: Order Comment: Campu s: M Performed By: #### L 500.96857, L500.20746, L500.77571 #### [facility] [address] [place], [place] [address] ABG O2 CONTENT 19.8 mL/dL Normal 15.7-21.6 [facility] Comment on above: Order Comment: Campu s: M Performed By: #### L 500.54261, L500.75399, L500.53679 #### [facility] [address] [place] [address] ABG O2HB SAT 91.4 % Normal 90-100 [facility] Comment on above: Order Comment: Campu s: M Performed By: #### L 500.74738, L500.74551, L500.45763 #### [facility] [place] [address] ABG PCO2 42.9 MMHG Normal 35-45 [facility] Comment on above: Order Comment: Campu s: M Performed By: #### L 500.81183, L500.21907, L500.06865 #### [facility] [address] [place] [address] ABG PH 7.40 Normal 7.35-7.45 [facility] Comment on above: Order Comment: Campu s: M Performed By: #### L 500.39349, L500.97571, L500.42901 #### [facility] [place] [address] ABG PO2 78 MMHG Low 80-100 [facility] Comment on above: Order Comment: Campu s: M Performed By: #### L 500.29651, L500.34317, L500.34673 #### [facility] [address] [place] [address] ABG REDUCED HGB 4.8 % Normal 0-5 [facility] Comment on above: Order Comment: Campu s: M Performed By: #### L 500.96238, L500.75508, L500.16852 #### [facility] [address] [place] [address] FRANCES TEST Positive Normal [facility] Comment on above: Order Comment: Campu s: M Performed By: #### L 500.59303, L500.49210, L500.07722 #### [facility] [address] [place] [address] Body temperature 98.6 [degF] Normal [facility] Comment on above: Order Comment: Campu s: M Performed By: #### L 500.70436, L500.81331, L500.06038 #### [facility] [address] [place] [address] EQUIPMENT ROOM AIR Normal [facility] Comment on above: Order Comment: Campu s: M Performed By: #### L 500.51072, L500.80004, L500.80575 #### [facility] [address] [place], [place] [address] FIO2 21 % Normal [facility] Comment on above: Order Comment: Campu s: M Performed By: #### L 500.11871, L500.94802, L500.55400 #### [facility] [address] [place] [address] HCO3 (Bld) [Moles/Vol] 26.2 mmol/L High 22-26 [facility] Comment on above: Order Comment: Campu s: M Performed By: #### L 500.91293, L500.71109, L500.22326 #### [facility] [address] [place] [address] Hemoglobin (Bld) [Mass/Vol] 15.4 g/dL Normal 10-16 [facility] Comment on above: Order Comment: Campu s: M Performed By: #### L 500.55798, L500.49212, L500.03069 #### [facility] [address] [place] [address] SAMPLE SITE L RADIAL [facility] Comment on above: Order Comment: Campu s: M Performed By: #### L 500.44144, L500.04448, L500.22129 #### [facility] [address] [place] [address] SAMPLE TYPE ARTERIAL Normal [facility] Comment on above: Order Comment: Campu s: M Performed By: #### L 500.00051, L500.61235, L500.44075 #### [facility] [address] [place] [address] 164[address] BMPon 05-20-2021 Anion gap [Moles/Vol] 6 mmol/L Normal 5-16 [facility] Comment on above: Order Comment: Campu s: M Performed By: #### L 500.07280, L500.83316, L500.83638 #### [facility] [address] [place] [address] Calcium [Mass/Vol] 9.6 mg/dL Normal 8.5-10.5 [facility] Comment on above: Order Comment: Campu s: M Result Comment: NOTE NEW NORMAL RANGE DUE TO REAGENT CHANGE Performed By: #### L 500.73190, L500.84201, L500.30069 #### [facility] [address] [place] [address] Chloride [Moles/Vol] 108 mmol/L High 98-107 [facility] Comment on above: Order Comment: Campu s: M Performed By: #### L 500.50799, L500.52395, L500.52541 #### [facility] [address] [place] [address] CO2 [Moles/Vol] 27.0 mmol/L Normal 21-32 [facility] Comment on above: Order Comment: Campu s: M Performed By: #### L 500.03004, L500.45828, L500.64813 #### [facility] [address] [place] [address] Creatinine [Mass/Vol] 0.80 mg/dL Normal 0.5-1.4 [facility] Comment on above: Order Comment: Campu s: M Result Comment: NOTE NEW NORMAL RANGE DUE TO REAGENT CHANGE Patients receiving either N-Acetylcysteine (NAC) or Metamizole prior to venipuncture, may have falsely depressed results. Performed By: #### L 500.33268, L500.84786, L500.16998 #### [facility] [address] [place], [place] [address] Glucose [Mass/Vol] 107 mg/dL High 70-100 [facility] Comment on above: Order Comment: Campu s: M Result Comment: 70-1 00- Normal Fasting; 100-125 Impaired Fasting; greater than 126 on more than one result- Diabetes. ADA guidelines. Results may be falsely elevated after the administration of Sulfapyridine. Results may be falsely depressed after the administration of Sulfasalazine. Performed By: #### L 500.13973, L500.73620, L500.13587 #### [facility] [place] [address] Potassium [Moles/Vol] 4.2 mmol/L Normal 3.5-5.1 [facility] Comment on above: Order Comment: Campu s: M Performed By: #### L 500.27036, L500.41422, L500.40503 #### [facility] [address] [place] [address] Sodium [Moles/Vol] 141 mmol/L Normal 136-145 [facility] Comment on above: Order Comment: Campu s: M Performed By: #### L 500.83520, L500.33536, L500.28266 #### [facility] [address] [place] [address] Urea nitrogen [Mass/Vol] 11 mg/dL Normal 7-26 [facility] Comment on above: Order Comment: Campu s: M Performed By: #### L 500.99727, L500.18945, L500.23739 #### [facility] [address] [place] [address]2378 Urea nitrogen/Creatinine [Mass ratio] 14 mg/mg Low 15-24 [facility] Comment on above: Order Comment: Campu s: M Performed By: #### L 500.24364, L500.37413, L500.77084 #### [facility] [address] [place] [address] CADon 05-20-2021 CAD VASCULAR REPORT ------- Patient: SAKSHI KELLEY Account [id number] Ordering Phy: MR: [id number] Reason for Visit: ABNORMAL STRESS Date of Service 05/20/21 Reading Physician: Aguilar Murphy MD [id number] IN CAD CAROTID DUPLEX BEATRICE [address] [place] [address] Non- Invasive Vascular Laboratory Carotid Duplex Report Name: SAKSHI KELLEY Study Date: 05/20/2021 10:10 AM [id number] 1970 (M/d/yyyy)Gender: Male Age: 51 yrs Ethnicity: [place] Accession No. [id number] No. [id number] Order No. [id number] Carotid Smart Chart Right Left PSV EDV PSV EDV cm/seccm/sec cm/seccm/sec -97.7 -42.9 Dist ICA -85.6 -39.4 CC: Los Fuller DO * [facility] PATIENT NAME: SAKSHI KELLEY [address] [place] [address] Dr. Poe MEDICAL REC #: [id number] [place] [address] ADMIT DATE: 05/20/21 DISCHARGE DATE: CAROTID DUPLEX REPORT ATTENDING PHY: Los Fuller DO Electronically Signed by: Aguilar Murphy MD Esign Date: 05/20/21 VASCULAR REPORT ------- Patient: SAKSHI KELLEY Account [id number] Ordering Phy: MR: [id number] Reason for Visit: ABNORMAL STRESS Date of Service 05/20/21 Reading Physician: Aguilar Murphy MD -74.9 -28.3 Prox ICA -75.6 -28.7 -97.7 NA Prox ECA -69.4 NA -98.6 -36.5 Dist CCA -85.4 -26.9 -114.2 -36.5 Prox CCA -96.9 -26.9 -54.4 NA Vertebral A -54.4 -13.1 Measurements and Calculations Right No Left Unit Laterality Prox SCLA PSV 140.0 152.8 cm/sec Interpretation Summary Stenosis in the right internal carotid artery is 1-39% by established Doppler criteria. Stenosis in the left internal carotid artery is 1-39% by established Doppler criteria. Right Carotid This is suggestive of a 1-39% stenosis of the right internal carotid artery. The Doppler flow velocities within the right external carotid artery are within normal limits. Right Vertebral/Subclavian Right vertebral artery flow is antegrade and within normal limits. Right subclavian artery flow is antegrade and within normal limits. Left Carotid This is suggestive of a 1-39% stenosis of the left internal carotid artery. The Doppler flow velocities within the left external carotid artery are within normal limits. Left Vertebral/Subclavian Left vertebral artery flow is antegrade and within normal limits. Left subclavian artery flow is antegrade and within normal limits. CC: Los Fuller DO * [facility] PATIENT NAME: SAKSHI KELLEY [address] [facility] [address] Poe MEDICAL REC #: [id number] [place] [address] ADMIT DATE: 05/20/21 DISCHARGE DATE: CAROTID DUPLEX REPORT ATTENDING PHY: Los Fuller DO Electronically Signed by: Aguilar Murphy MD Esign Date: 05/20/21 VASCULAR REPORT ------- Patient: SAKSHI KELLEY Account [id number] Ordering Phy: MR: [id number] Reason for Visit: ABNORMAL STRESS Date of Service 05/20/21 Reading Physician: Aguilar Murphy MD Electronically signed by: Aguilar Murphy MD 05/21/2021 07:45 PM Ordering Physician: Marina Spencer Performed By: Hunter Bermeo RVT CC: Marina Spencer CC: Los Fuller DO * [facility] PATIENT NAME: SAKSHI KELLEY [facility] MEDICAL REC #: [id number] [place] [address] ADMIT DATE: 05/20/21 DISCHARGE DATE: CAROTID DUPLEX REPORT ATTENDING PHY: Los Fuller DO Electronically Signed by: Aguilar Murphy MD Esign Date: 05/20/21 [facility] CARD.STSon 05-20-2021 CARD.STS [Embedded Image Not Available] [facility] Patient Name: SAKSHI KELLEY [facility] Date of : [address] [place] [address] Unit Number: [id number] Cardiac STS Risk Score Patient Status: ADM IN Attending Doctor: Hunter Davila MD Dictated Date: 05/20/21 1600 Cardiac STS Risk Score Score: STS Adult Cardiac Surgery Database Version 4.20 RISK SCORES Procedure: Isolated CAB Risk of Mortality: 0.287% Renal Failure: 0.235% Permanent Stroke: 0.434% Prolonged Ventilation: 1.948% DSW Infection: 0.089% Reoperation: 1.400% Morbidity or Mortality: 3.306% Short Length of Stay: 80.765% Long Length of Stay: 0.780% Disclaimer This dictation was created using voice recognition software. Phonetic and/or minor grammatical errors may exist. eSign Date and Time Marina Spencer RFID ANALYST Verified/Reviewed by 05/24/21 0926 [facility] Cardiac STS Risk Score Normal [facility] CBCon 05-20-2021 Erythrocyte distribution width (RBC) [Ratio] 13.0 % Normal 11-14.5 [facility] Comment on above: Order Comment: Campu s: M Performed By: #### L 500.76155, L500.81621, L500.45836 #### [facility] [address] [place], [place] [address] Hematocrit (Bld) [Volume fraction] 43.3 % Normal 41.0-53.0 [facility] Comment on above: Order Comment: Campu s: M Performed By: #### L 500.87243, L500.94099, L500.09888 #### [facility] [address] [place] [address] Hemoglobin (Bld) [Mass/Vol] 14.7 g/dL Normal 13.5-17.5 [facility] Comment on above: Order Comment: Campu s: M Performed By: #### L 500.79798, L500.32228, L500.61376 #### [facility] [address] [place], [place] [address] MCHC (RBC) [Mass/Vol] 33.9 g/dL Normal 32.0-36.0 [facility] Comment on above: Order Comment: Campu s: M Performed By: #### L 500.50773, L500.14608, L500.93459 #### [facility] [address] [place], [place] [address] MCV (RBC) [Entitic vol] 89.8 fL Normal 80.0-99.0 [facility] Comment on above: Order Comment: Campu s: M Performed By: #### L 500.73459, L500.61360, L500.11456 #### [facility] [address] [place] [id number] Nucleated RBC/100 WBC (Bld) [Ratio] 0.0 % Normal Less than 1 [facility] Comment on above: Order Comment: Campu s: M Performed By: #### L 500.92479, L500.50175, L500.17338 #### [facility] [address] [place] [address] Platelet mean volume (Bld) [Entitic vol] 9.2 fL Low 9.4-12.4 [facility] Comment on above: Order Comment: Campu s: M Performed By: #### L 500.65709, L500.58707, L500.42880 #### [facility] [address] [place] [address] PLT 225 K/CU MM Normal 150-450 [facility] Comment on above: Order Comment: Campu s: M Performed By: #### L 500.15635, L500.44518, L500.09276 #### [facility] [address] [place] [address] RBC 4.82 M/CU MM Normal 4.50-6.00 [facility] Comment on above: Order Comment: Campu s: M Performed By: #### L 500.10434, L500.21838, L500.82377 #### [facility] [address] [place] [address] WBC 8.4 K/CUMM Normal 4.5-11.0 [facility] Comment on above: Order Comment: Campu s: M Performed By: #### L 500.06487, L500.83351, L500.26108 #### [facility] [address] [place] [address] CCon 05-20-2021 CARDIAC CATH Normal [facility] CDLECHOon 05-20-2021 CDLECHO [id number] IN ECHOCARD ECHOCARDIOGRAM [place] [address] Noninvasive Cardiac Diagnostics Adult Echocardiogram Report Name: SAKSHI KELLEY Study Date: 05/20/2021 10:33 AM BP: 126/70 mmHg [id number] 1970 Gender: Male Height: 71 in Age: 51 yrs Ethnicity: [place] Weight: 176 lb Accession No. [id number] No. [id number] Reason For Study: CAD/ASHD BSA: 2.0 m2 History: Chest Pain Interpretation Summary SUPINE/POST CATH Ejection Fraction = 60-65%. There is Trace to mild tricuspid regurgitation. Left Ventricle: The left ventricular size, thickness and function are normal. Ejection Fraction = 60-65%. Left Ventricular Filling pattern is normal for age. Left Atrium/Atrial Septum: The left atrial size is normal. Right Atrium: Right atrial size is normal. Right Ventricle: The right ventricle is normal in size and function. Aortic Valve: Structurally normal aortic valve. [facility] PATIENT NAME: SAKSHI KELLEY [address] [facility] [address] MEDICAL REC #: [id number] [place] [address] ADMIT DATE: 05/20/21 DISCHARGE DATE: ATTENDING PHY: Los Fuller DO ECHOCARDIOGRAM REPORT Mitral Valve: The mitral valve is normal in structure and function. Tricuspid Valve: The tricuspid valve is normal in structure and function. There is Trace to mild tricuspid regurgitation. Pulmonic Valve: Structurally normal pulmonic valve. Arteries: The aortic root is normal size. Pericardium/Pleura: There is no pericardial effusion. MMode/2D Measurements and Calculations IVSd: 0.77 cm LVIDd: IVS/LVPW: EDV(cubed): IVSs: 1.3 cm 4.8 cm 0.88 107.2 ml LVIDs: FS: 38.0 % ESV(cubed): 2.9 cm EF(Teich): 25.6 ml LVPWd: 68.1 % EF(cubed): 0.88 cm 76.1 % LVPWs: % IVS thick: 1.2 cm 66.7 % % LVPW thick: 37.5 % LV mass(C)d: SV(Teich): MV excursion:Ao root 130.3 grams 71.5 ml 1.5 cm diam: 2.6 cm LV mass(C)dI: SI(Teich): MV E-F slope:Ao root 6.1 cm/sec area: 65.3 grams/m2 35.8 ml/m2 LV mass(C)s: SV(cubed): 5.5 cm2 114.0 grams 81.6 ml ACS: 1.6 cm LV mass(C)sI: SI(cubed): LA 57.1 grams/m2 40.9 ml/m2 dimension: 3.2 cm LA/Ao: 1.2 EF (MOD- LVOT diam: sp4): 52.6 % 2.0 cm Time Measurements Aortic R-R: 0.71 sec [facility] PATIENT NAME: SAKSHI KELLEY [address] [place] [address] Dr. Poe MEDICAL REC #: [id number] [place] [address] ADMIT DATE: 05/20/21 DISCHARGE DATE: ATTENDING PHY: Los Fuller DO ECHOCARDIOGRAM REPORT Aortic HR: 84.4 BPM Doppler Measurements and Calculations MV E max marybel: MV max PG: MV dec Ao V2 max: 67.1 cm/sec 2.5 mmHg time: 158.0 cm/sec MV A max marybel: MV mean P.27 sec Ao max P.0 cm/sec 1.3 mmHg 10.0 mmHg MV E/A: 0.86 MVA(VTI): Ao max PG 3.3 cm2 (full): 5.1 mmHg Ao mean P.7 mmHg Ao mean PG (full): 2.6 mmHg Ao V2 VTI: 25.2 cm CHICHI(I,A): 2.5 cm2 CHICHI(I,D): 2.5 cm2 CHICHI(V,A): 2.2 cm2 CHICHI(V,D): 2.2 cm2 LV V1 max: CO(Ao): PA max PG: PI end-d marybel: 110.0 cm/sec 11.7 l/min 5.8 mmHg 89.0 cm/sec LV V1 mean: CI(Ao): 65.7 cm/sec 5.9 l/min/m2 LV V1 VTI: SV(Ao): 19.8 cm 138.6 ml SI(Ao): 69.4 ml/m2 CO(LVOT): 5.4 l/min CI(LVOT): 2.7 l/min/m2 SI(LVOT): 31.8 ml/m2 TR max marybel: RAP systole: 166.4 cm/sec 10.0 mmHg TR max PG: [facility] PATIENT NAME: SAKSHI KELLEY [address]oe MEDICAL REC #: [id number] [place] [address] ADMIT DATE: 05/20/21 DISCHARGE DATE: ATTENDING PHY: Los Fuller DO ECHOCARDIOGRAM REPORT 11.1 mmHg RVSP(TR): 21.1 mmHg Reviewed/Verified By: Amador Gaspar MD 05/20/2021 03:52 PM Ordering Physician: Marina Spencer Referring Physician: RAE Performed By: 10 CC: Marina Spencer [facility] PATIENT NAME: SAKSHI KELLEY [address] MEDICAL REC #: [id number] [place] [address] ADMIT DATE: 05/20/21 DISCHARGE DATE: ATTENDING PHY: Los Fuller DO ECHOCARDIOGRAM REPORT Normal [facility] ECHOCARDIOGRAM REPORT Normal [facility] CONS.CTSon 05-20-2021 CONS.CTS [facility] Patient Name: SAKSHI KELLEY [address] Date of : [address] [place], [place] [address] Unit Number: [id number] Consultation-CTS Patient Status: ADM IN Attending Doctor: Los Fuller DO Service Date: 05/20/21 0838 History of Present Illness Referring Physician Los Fuller DO Consulted Provider Hunter Davila MD Source of Information Patient/Medical Records Reason for Consult CABG Living Situation Home - Independent History of Present Illness Mr Kelley is a 51 year old [...] was consulted for evaluation of surgical intervention. Past Medical/Surgical Hx Medical Records Reviewed Yes Past Medical History Summary HTN HLD Spontaneous pneumothorax Past Surgical History Summary Left lung surgery due to spontaneous pneumothorax 1991 Family/Social History Family History FATHER FH: coronary artery bypass surgery FH: diabetes mellitus Social Hx Tobacco: Denies EtOH: Denies Illegal Drug Use: Denies Advance Directives Advance Directives Full Code Allergies/Home Medications Allergies Coded Allergies: MORPHINE (Mild, RED STREAKS ON LEGS 05/20/21) Home Medications Aspirin* (Aspirin 81MG Tablet Chew*) 81 MG TAB.CHEW 81 MG PO QDAYWM, Ref 0 (Reported) Entered as Reported by AVINASH LR on 05/20/21613 Last Action: Reviewed on 05/20/21613 by AVINASH LR metoprolol SUCCINATE* (Toprol XL 50MG Tab SA*) 50 MG TAB.ER.24H 50 MG PO QDAY, Ref 0 ( Reported) Entered as Reported by AVINASH LR on 05/20/21613 Last Action: Reviewed on 05/20/21613 by AVINASH LR Ramipril (Altace cap) 10 MG CAPSULE 10 MG PO QDAY, Ref 0 (Reported) Entered as Reported by AVINASH LR on 05/20/21613 Last Action: Reviewed on 05/20/21613 by AVINASH LR Rosuvastatin Calcium (Crestor) 40 MG TABLET 20 MG PO QDAY, Ref 0 (Reported) Entered as Reported by NAVYA TERRELL on 05/17/21 1327 Last Action: Reviewed on 05/20/21613 by AVINASH LR Inpatient Medications Medications Current Sig/Denilson Start time Last Medication Dose Route Stop Time Status Admin Acetaminophen 650 MG Q4HPRN PRN 05/20 0830 AC (TYLENOL TAB) PO Metoprolol Succinate 50 MG QDAY 05/20 0900 AC (TOPROL TAB.SA) PO Ramipril 10 MG QDAY 05/20 0900 AC (ALTACE CAP) PO Rosuvastatin Calcium 20 MG QHS 05/20 2200 AC (CRESTOR TAB) PO Review of Systems ROS: Other All 10 ROS negative, unless otherwise noted in above HPI. Physical Exam Vital Signs Vital Signs (Last) Result Date Time Pulse Ox 96 05/20 0916 B/P 153/84 05/20 0916 B/P Mean 111 05/20 0916 Pulse 74 05/20 0916 Resp 18 05/20 0916 Vital Signs (24hr) Date Temp Pulse Resp B/P B/P Mean Pulse Ox FiO2 05/20 74-82 18 128-153/80-93 99-117 96-98 Physical Examination Summary General: A+O x3, NAD Skin: Warm, Dry. ENT: MMM, no sinus drainage noted Neck: No JVD, Trach Midline Thorax: Equal, unlabored respirations, even chest rise and fall. Lung sounds - Clear and Diminished. No accessory muscle use CV: HR RRR, S1,S2. No R/M/G, PPP +2, No Edema noted in BLE, CR < 3sec ABD: Large, soft NT. Bowel sounds present Musculoskeletal/Extre mities: No cyanosis or clubbing Neuro: CN II-XII grossly intact, No focal deficits Diagnostic Data: Laboratory Tests 05/20 614 Chemistry Sodium (136 - 145 MMOL/L) 141 Potassium (3.5 - 5.1 MMOL/L) 4.2 Chloride (98 - 107 MMOL/L) 108 H Carbon Dioxide (21 - 32 MMOL/L) 27.0 Anion Gap (5 - 16 MMOL/L) 6 BUN (7 - 26 MG/DL) 11 Creatinine (0.5 - 1.4 MG/DL) 0.80 Est GFR ( Amer) Greater than 60 Est GFR (Non-Af Amer) Greater than 60 BUN/Creatinine Ratio (15 - 24) 14 L Glucose (70 - 100 MG/DL) 107 H Total Calcium (8.5 - 10.5 MG/DL) 9.6 Coagulation INR (0.9 - 1.1) 1.10 PT Normal Mean Secs (9.5 - 12.0 SECONDS) 11.7 Hematology WBC (4.5 - 11.0 K/CUMM) 8.4 RBC (4.50 - 6.00 M/CU MM) 4.82 Hgb (13.5 - 17.5 G/DL) 14.7 Hct (41.0 - 53.0 %) 43.3 MCV (80.0 - 99.0 fl) 89.8 MCHC (32.0 - 36.0 GM/DL) 33.9 RDW (11 - 14.5) 13.0 Plt Count (150 - 450 K/CU MM) 225 MPV (9.4 - 12.4) 9.2 L Nucleated RBCs (Less than 1 %) 0.0 Conclusion / Plan Conclusion/Plan 1. CAD (coronary artery disease) Mr Kelley is a 51 year old male with significant past medical history of HTN, HLD, and spontaneous pneumothorax requiring surgical intervention in 1991. He presented today for heart catheterization due to on going chest pain, despite initi (more content not included)... Normal [facility] EKGon 05-20-2021 Electrocardiogram Procedure Date and Time: 05/22/21 0606 Test Reason : RT Blood Pressure : / mmHG Vent. Rate : 101 BPM Atrial Rate : 101 BPM P-R Int : 150 ms QRS Dur : 084 ms QT Int : 340 ms P-R-T Axes : 058 042 040 degrees QTc Int : 440 ms Sinus tachycardia Otherwise normal ECG When compared with ECG of 21-MAY-2021 14:36, Heart rate is increased by 7 bpm Confirmed by AGUILAR MURPHY MD ([id number]) on 05/23/2021 4:41:19 PM Referred By: Gayathri Sampson Confirmed By:AGUILAR MURPHY MD M.D. DDandT: 05/22/21605 TDandT: [facility] PATIENT NAME: SAKSHI KELLEY [address]leen [address]oe MEDICAL REC #: [id number] [place] [address] ADMIT DATE: 05/20/21 DISCHARGE DATE: ATTENDING PHY: Hunter Davila MD ELECTROCARDIOGRAM REPORT CLB cc: [facility] PAT[facility] #: [id number] [place] [address] ADMIT DATE: 05/20/21 DISCHARGE DATE: ATTENDING PHY: Hunter Davila MD ELECTROCARDIOGRAM REPORT Normal [facility] Electrocardiogram Procedure Date and Time: 05/24/21620 Test Reason : RT Blood Pressure : / mmHG Vent. Rate : 094 BPM Atrial Rate : 094 BPM P-R Int : 160 ms QRS Dur : 088 ms QT Int : 354 ms P-R-T Axes : 038 018 022 degrees QTc Int : 442 ms Normal sinus rhythm Non-specific ST abnormality Abnormal ECG When compared with ECG of 22-MAY-2021 06:06, No significant change was found Confirmed by AGUILAR MURPHY MD ([id number]) on 05/24/2021 11:35:55 AM Referred By: Gayathri Sampson Confirmed By:AGUILAR MURPHY MD M.D. DDandT: 05/24/21620 TDandT: [facility] PATIENT NAME: SAKSHI KELLEY [address]leen [address] MEDICAL REC #: [id number] [place] [address] ADMIT DATE: 05/20/21 DISCHARGE DATE: ATTENDING PHY: Hunter Davila MD ELECTROCARDIOGRAM REPORT CLB cc: [facility] PATIENT NAME: SAKSHI KELLEY [facility] MEDICAL REC #: [id number] [place] [address] ADMIT DATE: 05/20/21 DISCHARGE DATE: ATTENDING PHY: Hunter Davila MD ELECTROCARDIOGRAM REPORT Normal [facility] Electrocardiogram Procedure Date and Time: 05/21/21 1436 Test Reason : STAT Blood Pressure : / mmHG Vent. Rate : 094 BPM Atrial Rate : 094 BPM P-R Int : 162 ms QRS Dur : 080 ms QT Int : 362 ms P-R-T Axes : 066 073 058 degrees QTc Int : 452 ms Normal sinus rhythm Normal ECG When compared with ECG of 20-MAY-2021 06:22, No significant change was found Confirmed by AGUILAR MURPHY MD ([id number]) on 05/23/2021 4:17:58 PM Referred By: Gayathri Sampson Confirmed By:AGUILAR MURPHY MD M.D. DDandT: 05/21/21 1436 TDandT: [facility] PATIENT NAME: [facility]LEY [facility] #: [id number] [place] [address] ADMIT DATE: 05/20/21 DISCHARGE DATE: ATTENDING PHY: Hunter Davila MD ELECTROCARDIOGRAM REPORT CLB cc: [facility] PATIENT NAME: [facility]I [facility]LEY [facility] #: [id number] [place] [address] ADMIT DATE: 05/20/21 DISCHARGE DATE: ATTENDING PHY: Hunter Davila MD ELECTROCARDIOGRAM REPORT Normal [facility] Electrocardiogram Procedure Date and Time: 05/20/21 0622 Test Reason : URGENT Blood Pressure : / mmHG Vent. Rate : 081 BPM Atrial Rate : 081 BPM P-R Int : 172 ms QRS Dur : 088 ms QT Int : 370 ms P-R-T Axes : 012 064 032 degrees QTc Int : 429 ms Normal sinus rhythm Normal ECG No previous ECGs available Confirmed by AGUILAR MURPHY MD ([id number]) on 05/23/2021 1:48:11 PM Referred By: Gayathri Sampson Confirmed By:AGUILAR MURPHY MD M.D. DDandT: 05/20/21621 TDandT: [facility] PATIENT NAME: SAKSHI KELLEY [facility] MEDICAL REC #: [id number] [place] [address] ADMIT DATE: 05/20/21 DISCHARGE DATE: ATTENDING PHY: Hunter Davila MD ELECTROCARDIOGRAM REPORT CLB cc: [facility] PATIENT NAME: SAKSHI KELLEY [facility] [address] MEDICAL REC #: [id number] [place] [address] ADMIT DATE: 05/20/21 DISCHARGE DATE: ATTENDING PHY: Hunter Davila MD ELECTROCARDIOGRAM REPORT Normal [facility] GFR ESTon 05-20-2021 IF AMER Greater than 60 Normal [facility] Comment on above: Order Comment: Campu s: M Performed By: #### L 500.79672, L500.41337, L500.84773 #### [facility] [address] [place] [address] IF non-AFR AMER Greater than 60 Normal [facility] Comment on above: Order Comment: Campu s: M Performed By: #### L 500.66945, L500.71261, L500.29890 #### [facility] [address] [place] [address] HGB A1C GLYCOHBon 05-20-2021 HbA1c (Bld) [Mass fraction] 6.3 % High 4.3-6.0 [facility] Comment on above: Order Comment: Campu s: M Performed By: #### L 500.60465, L500.02924, L500.21814, L500.21302 #### [facility] [address] [phone] ORon 05-20-2021 OR DATE OF SERVICE: 05/21/2021 PREOPERATIVE DIAGNOSIS: Multivessel coronary artery disease and bullae of the left lung. 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 OPERATION: 1. Coronary artery bypass grafting x3 using PARSONS to mid LAD, reversed saphenous vein graft to obtuse marginal 2, and reversed saphenous vein graft to high-takeoff posterior descending. 2. Endoscopic vein harvesting. 3. Transesophageal echocardiography. 4. Resection of bulla from left upper lobe. PUMP TIME: 54 minutes. SURGEON: Hunter Davila MD FIRST ASSISTANTS: David Rivero SA, and Adrian Guallpa SA ANESTHESIA: General endotracheal. ESTIMATED BLOOD LOSS: Minimal. [facility] PATIENT NAME: SAKSHI KELLEY [address] [place] [address] Dr. Poe MEDICAL REC #: [id number] [place] [address] ADMIT DATE: 05/20/21 DISCHARGE DATE: 05/24/21 OPERATIVE REPORT ATTENDING PHY: Hunter Davila MD DRAINS: Chest tubes in the left chest, mediastinum and right chest. COMPLICATIONS: None. DESCRIPTION OF PROCEDURE: Patient was taken to the OR. Transesophageal echocardiography revealed preserved ventricular function. There was no significant valvular disease. A 2-team approach was used. Vein graft was harvested endoscopically from the lower extremity while a median sternotomy was performed. Upon taking down the left internal mammary artery, the left lung was found to be densely adherent to the mediastinum and chest wall. There was complete fusion between the left lung and the chest wall with noticeable bullae and blebs at the apex of the left lung. This significantly interfered with the course of the internal mammary artery for use as a bypass graft. Dissection was carried around the lung, taking down the adhesions between the left upper lobe and the chest wall and mediastinum and great vessels. An Endo CHANDLER stapler was used to resect the apex of the left upper lobe. Anterior part of the lung was resected along with the bulla, performing a bullectomy. This left enough space for the internal mammary artery, [facility] PATIENT NAME: SAKSHI KELLEY [address] [facility] [address] MEDICAL REC #: [id number] [place] [address] ADMIT DATE: 05/20/21 DISCHARGE DATE: 05/24/21 OPERATIVE REPORT ATTENDING PHY: Hunter Davila MD which was subsequently taken down. The patient was systemically heparinized and cardiopulmonary bypass instituted. Attention was first turned towards the obtuse marginal vessel. This was a 2-mm vessel. It was grafted end to side with a vein graft using a running 7-0 Prolene suture. The heart was stabilized with the Acrobat stabilizing device. A shunt was placed. The procedure was done on the beating heart with pump assist. All anastomoses completed in a similar fashion. Next, attention was turned towards the right system. The right coronary artery was severely calcified and obliterated. There was a takeoff of a vessel over the acute margin of the heart. It may have been a smaller version of the posterior descending coronary artery. It was a 1.5-mm vessel and a good target. The posterior descending coronary artery was nonexistent and I therefore grafted this vessel end to side with vein graft. The LAD was grafted in its proximal third. Here it was a good size vessel, a 2.5-mm vessel, and grafted end to side with the internal mammary artery. A partial occlusion clamp was applied to the aorta. Although the aorta felt and [facility] PATIENT NAME: SAKSHI KELLEY [address] [facility] [address] MEDICAL REC #: [id number] [place] [address] ADMIT DATE: 05/20/21 DISCHARGE DATE: 05/24/21 OPERATIVE REPORT ATTENDING PHY: Hunter Davila MD appeared soft without disease, when I incised the aorta to place the punch, I could feel that it was thick. Two aortotomies were made and there was thick medial disease within the aorta. Toothpaste oozed out of the media of the aorta and I irrigated out the aorta as best as I possibly could to prevent air and embolization of air and particulate matter. Carbon dioxide was used. I got as good of an endpoint as I could with the aortotomies. The two proximal anastomoses were performed end to side with running 6-0 Prolene suture. The partial occlusion clamp was removed under Trendelenburg, but this unexpected finding puts the patient at increased risk for stroke. The patient weaned from cardiopulmonary bypass. Weaning occurred successfully. Protamine was administered. Chest tubes were placed in the right chest, mediastinum, and along the mammary bed in the left chest. There (more content not included)... Normal [facility] PATIENT RETYPEon 05-20-[address] Normal [facility] PFSon 05-20-2021 BIGG/ADP 97 Seconds Normal 58-110 [facility] Comment on above: Order Comment: Ayanna s: M Performed By: #### L 500.33930, L500.31963, L500.43095, L500.32243 #### [facility] [address] [place] [address] BIGG/EPI 232 SECONDS High 91-168 [facility] Comment on above: Order Comment: Ayanna s: M Result Comment: Plat elet function results with closure times within or below the reference range for epinephrine are consistent with normal platelet function. Prolonged closure times with both epinephrine and ADP suggest a primary platelet disorder (effects of medication must be excluded), thrombocytopenia, uremia or Von Willebrand disease. Performance has not been established for specific platelet inhibiting agents such as Plavix. Prolonged epinephrine and normal ADP closure times suggest a drug effect. Clinical correlation is essential and additional testing including, but not limited to, platelet aggregometry may be indicated. Performed By: #### L 500.92861, L500.04301, L500.89465, L500.86143 #### [facility] [address] [phone] PFSRon 05-20-2021 PFSR Forced expiratory spirogram reveals moderate large airways obstructive lung disease. Spirograms are of good quality and do not plateau. The respiratory flow volume loop reveals decreased flows at all volumes consistent with large and small airways obstruction. .br.brImpression:.brM oderate obstructive ventilatory impairment. CC: Castillo Spencer Verified/Reviewed by 05/20/[address] [place] [address] * [facility] PATIENT NAME: SAKSHI KELLEY [address] [facility] [address] MEDICAL REC. #: [id number] [place] [address] ACCOUNT NUM: [id number] ADMIT DATE: 05/20/21 DISCHARGE DATE: PULMONARY FUNCTION SCREEN REPORT ATTENDING PHY: Los Fuller DO Normal [facility] PULMONARY FUNCTION SMART RPT Normal [facility] PORTABLE CHESTon 05-20-2021 PORTABLE CHEST PORTABLE CHEST Ordering Physician: Marina Spencer 05/21/2021 2:17 PM PORTABLE CHEST: Clinical Statement: Postop CABG Comparison: Chest x-ray 05/20/2021 TIME: 2:32 PM FINDINGS: Post CABG changes. The endotracheal tube tip projects about 5 cm above the corin. A right internal jugular Kent-Shirley catheter tip projects over the right pulmonary artery. Two mediastinal and a single right pleural drain are noted. The enteric tube courses appropriately below the hemidiaphragm and projects over the stomach. The cardiomediastinal silhouette is mildly prominent, most likely reflecting surgical change. A right lung base linear density most likely reflects atelectasis. There is no focal consolidation, large pleural effusion, vascular congestion or pneumothorax. The osseous structures are unremarkable. IMPRESSION: Post-CABG changes. Endotracheal tube tip projects 5 cm above the corin. Other support devices are appropriately positioned. Mild right basilar atelectasis. Report was faxed at the time of dictation. Dictated by Rn Placement: Vanessa Baird DO I, Millicent David MD PhD, have supervised the procedure and/or image review, and agree with the above interpretation and report. ---- Electronic Signature on File ---- Signed By: Millicent David MD PhD [email or web address] Dictated: 05/21/2021 2:49 PM Signed: 05/21/2021 3:04 PM Reported By: MILLICENT DAVID M.D. Signed By: MILLICENT DAVID M.D. [facility] PORTABLE CHEST PORTABLE CHEST Ordering Physician: Marina Spencer 05/22/2021 6:00 AM PORTABLE UPRIGHT CHEST: Clinical Statement: Postop CABG. Comparison: Portable supine chest 05/21/2021 at 1432 hours. FINDINGS: The ET tube and enteric tube have been removed. The two mediastinal drains and right basilar chest tube are unchanged position. The Kent-Shirley catheter has been withdrawn with the right IJ introducer sheath remaining in place. The depth of inspiration remains somewhat shallow. The cardiac and mediastinal contours are within normal limits. Bandlike atelectasis in the right lower lung is improved with mild residual opacity. There is stable linear opacity laterally in the left upper lung. No congestion, significant pleural fluid accumulation or visible pneumothorax. IMPRESSION: Improved right lower lung atelectasis. No visible pneumothorax. ---- Electronic Signature on File ---- Signed By: Sakshi Jones MD [email or web address] Dictated: 05/22/2021 7:35 AM Signed: 05/22/2021 7:37 AM Reported By: SAKSHI JONES M.D. Signed By: SAKSHI JONES M.D. [facility] PORTABLE CHEST PORTABLE CHEST Ordering Physician: Marina Spencer 05/20/2021 8:50 AM PORTABLE UPRIGHT CHEST: Clinical Statement: Abnormal breath sounds Comparison: None FINDINGS: The heart, aorta, and mediastinum are within normal limits. There is pleural thickening or small effusion on the left side. No effusion on the right side. No congestion. No pneumothorax. No focal consolidation. There is mild linear scarring or atelectasis in the lateral left upper lung. Osseous structures are normal. IMPRESSION: Small left pleural effusion versus pleural thickening. Mild atelectasis or scarring in the left upper lung. ---- Electronic Signature on File ---- Signed By: Millicent David MD PhD [email or web address] Dictated: 05/20/2021 11:28 AM Signed: 05/20/2021 11:30 AM Reported By: MILLICENT DAVID M.D. Signed By: MILLICENT DAVID M.D. [facility] PORTABLE CHEST PORTABLE CHEST Ordering Physician: Caitie Hernandez 05/24/2021 4:00 AM PORTABLE UPRIGHT CHEST: Clinical Statement: Abnormal breath sounds. Comparison: Portable upright chest 05/22/2021 at 0408 hours. FINDINGS: There are sternal wires and mediastinal clips from previous open heart surgery. The right IJ sheath remains in place with its tip in the SVC. The mediastinal drains and right basilar chest tube have been removed. The cardiac and mediastinal contours are within normal limits. No congestion. There is bandlike opacity along the minor fissure likely due to atelectasis. There are mild bibasilar opacities with costophrenic angle blunting. There is linear scarring or atelectasis again shown laterally within the left upper lobe. The mid and upper lungs are otherwise clear. There is minimal paraseptal emphysema at the lung apices. No visible pneumothorax. IMPRESSION: 1. Interval removal of the thoracostomy tubes. No visible pneumothorax. 2. Mild atelectatic changes at the lung bases with small effusions. There is linear atelectasis along the minor fissure. ---- Electronic Signature on File ---- Signed By: Sakshi Jones MD [email or web address] Dictated: 05/24/2021 7:59 AM Signed: 05/24/2021 8:05 AM Reported By: SAKSHI JONES M.D. Signed By: SAKSHI JONES M.D. Normal [facility] PREALBon 05-20-2021 PREALB 24 MG/DL Normal 20-40 [facility] Comment on above: Order Comment: Ayanna Degroot Performed By: #### L 550.91426 #### [facility] [address] [place] [address] PTon 05-20-2021 INR Coag (PPP) [Relative time] 1.09 {INR} Normal 0.9-1.1 [facility] Comment on above: Order Comment: Ayanna s: Mikayla Result Comment: Bayron mmended PT INR therapeutic range for meterman and prophylactic therapy is 2.0 - 3.0. For heart valve and shunt patients the range is 2.5 - 3.5. Performed By: #### L 550.26825 #### [facility] [address] [place] [address] PTS 11.6 SECONDS Normal 9.5-12.0 [facility] Comment on above: Order Comment: Ayanna s: Mikayla Performed By: #### L 550.71486 #### [facility] [address] [place] [address] INR Coag (PPP) [Relative time] 1.10 {INR} Normal 0.9-1.1 [facility] Comment on above: Order Comment: Ayanna s: M Result Comment: Bayron mmended PT INR therapeutic range for meterman and prophylactic therapy is 2.0 - 3.0. For heart valve and shunt patients the range is 2.5 - 3.5. Performed By: #### L 550.79324 #### [facility] [address] [place] [address] PTS 11.7 SECONDS Normal 9.5-12.0 [facility] Comment on above: Order Comment: Ayanna Degroot Performed By: #### L 550.69663 #### [facility] [address] [place] [address] PTTon 05-20-2021 aPTT Coag (Bld) [Time] 31.9 s High 22.0-31.5 [facility] Comment on above: Order Comment: Ayanna rodas: Mikayla Result Comment: Ther apeutic Heparin Reference Range: High Dose: 46-75 seconds (DVT/PE) Low Dose: 39-60 seconds (Acute Coronary Syndrome) For low molecular weight heparin or danaparoid, monitoring is often NOT necessary, but the heparin assay, Xa inhibition assay (send-out) may be used in certain circumstances, as the PTT is generally insensitive to the effect of these agents. Direct thrombin inhibitors are becoming more widely utilized and these drugs are often monitored using the PTT. Performed By: #### L 500.45871, L500.24881, L500.16546 #### [place] [address] aPTT Coag (Bld) [Time] 30.5 s Normal 22.0-31.5 [facility] Comment on above: Order Comment: Ayanna Degroot Result Comment: Ther apeutic Heparin Reference Range: High Dose: 46-75 seconds (DVT/PE) Low Dose: 39-60 seconds (Acute Coronary Syndrome) For low molecular weight heparin or danaparoid, monitoring is often NOT necessary, but the heparin assay, Xa inhibition assay (send-out) may be used in certain circumstances, as the PTT is generally insensitive to the effect of these agents. Direct thrombin inhibitors are becoming more widely utilized and these drugs are often monitored using the PTT. Performed By: #### L 550.52314 #### [facility] [address] [place] [address] TSon 05-20-2021 ABO and Rh group Nom (Bld) Blood group A Rh(D) positive Normal [facility] Comment on above: Order Comment: Campu s: M Surgery Date: 05/21/21 Irradiated: N Washed: N UA COMPLETEon 05-20-2021 Color (U) Yellow Normal [facility] Comment on above: Order Comment: Campu s: M Performed By: #### L 500.37703, L500.74817, L500.29042 #### [facility] [address] [place] [address] Glucose (U) [Mass/Vol] Negative Normal NORMAL [facility] Comment on above: Order Comment: Campu s: M Performed By: #### L 500.22336, L500.70590, L500.95158 #### [facility] [address] [place] [address] UA APPEARANCE Clear Normal CLEAR [facility] Comment on above: Order Comment: Campu s: M Performed By: #### L 500.39680, L500.46248, L500.63038 #### [facility] [address] [place] [address] UA BILIRUBIN Negative Normal NEGATIVE [facility] Comment on above: Order Comment: Campu s: M Performed By: #### L 500.72377, L500.69807, L500.70947 #### [facility] [address] [place] [address] UA BLOOD Negative Normal NEGATIVE [facility] Comment on above: Order Comment: Campu s: M Performed By: #### L 500.84779, L500.99241, L500.92124 #### [facility] [address] [place] [address] UA KETONE Negative Normal NEGATIVE [facility] Comment on above: Order Comment: Campu s: M Performed By: #### L 500.40139, L500.57329, L500.49129 #### [facility] [address] [place] [address] UA LK ESTERASE Negative Normal NEGATIVE [facility] Comment on above: Order Comment: Campu s: M Performed By: #### L 500.95430, L500.01217, L500.70956 #### [facility] [address] [place] [address] UA NITRITE Negative Normal NEGATIVE [facility] Comment on above: Order Comment: Campu s: M Performed By: #### L 500.69320, L500.63600, L500.63063 #### [facility] [address] [place] [address] UA PH 6.0 Normal 5-6 [facility] Comment on above: Order Comment: Campu s: M Performed By: #### L 500.44813, L500.03360, L500.71864 #### [facility] [address] [place] [address] UA PROTEIN Negative Normal NEGATIVE [facility] Comment on above: Order Comment: Campu s: M Performed By: #### L 500.78398, L500.85964, L500.44197 #### [facility] [address] [place] [address] UA SPEC GRAV 1.029 Normal 1.005-1.030 [facility] Comment on above: Order Comment: Campu s: M Performed By: #### L 500.74386, L500.68901, L500.60822 #### [facility] [address] [place] [address] UA UROBILINOGEN Negative Normal NORMAL [facility] Comment on above: Order Comment: Campu s: M Performed By: #### L 500.63199, L500.91552, L500.52533 #### [facility] [address] [place] [address]# [phone] [facility] 05-20-2021 VENOUS DUPLEX REPORT Normal [facility] VASCULAR REPORT ------- Patient: SAKSHI KELLEY Account [id number] Ordering Phy: MR: [id number] Reason for Visit: ABNORMAL STRESS Date of Service 05/20/21 Reading Physician: Aguilar Murphy MD [id number] [place] VEIN MAPPING [place]ATRICE [address] [place] [address] Non- Invasive Vascular Laboratory Vein Mapping Report Name: SAKSHI KELLEY Study Date: 05/20/2021 10:18 AM [id number] 1970 Gender: Male Age: 51 yrs Ethnicity: [place] Accession No. [id number] No. [id number] Order No. [id number] Interpretation Summary The right greater saphenous vein appears to be within normal limits of diameter ranging from 4.1 mm proximally. to 3.0 mm distally. The left greater saphenous vein appears to be within normal limits of diameter ranging from 5.2 mm proximally. to 3.8 mm distally. - CC: Los Fuller DO * [facility] PATIENT NAME: SAKSHI KELLEY [address] [place] [address] Dr. Poe MEDICAL REC #: [id number] [place] [address] ADMIT DATE: 05/20/21 DISCHARGE DATE: VENOUS DUPLEX REPORT ATTENDING PHY: Los Fuller DO Electronically Signed by: Aguilar Murphy MD Esign Date: 05/20/21 VASCULAR REPORT ------- Patient: SAKSHI KELLEY Account [id number] Ordering Phy: MR: [id number] Reason for Visit: ABNORMAL STRESS Date of Service 05/20/21 Reading Physician: Aguilar Mruphy MD Mulitple branches visualized below the knee in the lower extremity bilaterally. LEVMAP Findings The right lower extremity was evaluated with blankenship- scale, color and spectral Doppler. No signs of superficial vein thrombosis. The greater saphenous and smaller saphenous veins were mapped and measured throughout the length. Adequate measurements of the greater saphenous and smaller saphenous veins. The left lower extremity was evaluated with blankenship-scale, color and spectral Doppler. No signs of superficial vein thrombosis. The greater saphenous and smaller saphenous veins were mapped and measured throughout the length. Adequate measurements of the greater saphenous and smaller saphenous veins. Measurements and Calculations Right No Left Unit Laterality Prx Calf GSV 0.29 0.38 cm SaphenoFem 0.48 0.61 cm Junction Prx Thigh GSV 0.41 0.52 cm Mid Thigh GSV 0.42 0.43 cm Dist Thigh GSV 0.35 0.50 cm At Knee GSV 0.45 0.46 cm Prx Calf GSV 0.29 0.38 cm Mid Calf GSV 0.30 0.33 cm SSV Prox 0.26 0.29 cm SSV Mid 0.23 0.26 cm SSV Dst 0.19 0.33 cm Electronically signed by: CC: Los Fuller DO * [facility] PATIENT NAME: SAKSHI KELLEY [address] MEDICAL REC #: [id number] [place] [address] ADMIT DATE: 05/20/21 DISCHARGE DATE: VENOUS DUPLEX REPORT ATTENDING PHY: Los Fuller DO Electronically Signed by: Aguilar Murphy MD Esign Date: 05/20/21 VASCULAR REPORT ------- Patient: SAKSHI KELLEY Account [id number] Ordering Phy: MR: [id number] Reason for Visit: ABNORMAL STRESS Date of Service 05/20/21 Reading Physician: MD Aguilar Us MD 05/21/2021 07:46 PM Ordering Physician: Marina Spencer Performed By: Hunter Bermeo RVT CC: Marina Spencer CC: Los Fuller DO * [facility] PATIENT NAME: [facility] MED[facility] REC #: [id number] [place] [address] ADMIT DATE: 05/20/21 DISCHARGE DATE: VENOUS DUPLEX REPORT ATTENDING PHY: Los Fuller DO Electronically Signed by: Aguilar Murphy MD Esign Date: 05/20/21 Normal [facility] HBEABon 09-06-2020 Hep Be Ab Negative Normal NEGAT [facility] ([place]) Comment on above: Result Comment: This test should only be used in patients with a previously known and/or concurrent positive HBsAg result. Along with HBeAg test, Hepatitis B e antibody test is used for monitoring the natural history of Hepatitis B virus infection and prognostication. Clinical correlation is required. Performed By: [facility] [address] [place] [address] Nuclear Licensing Engineer: Ramin Goyal III, M.D. CLIA#: [id number] Phone#: Performed By: #### G SAMIR, LIPID #### [place] [address] ANAon 09-03-2020 Nuclear Ab IF (S) [Titer] 40 {titer} Normal Neg 40 [facility] ([place]) Comment on above: Result Comment: DARREN Screen and Titer methodology is an immunofluorescent technique utilizing Hep2 Substrate. Performed By: #### A MY, FE, LIP, GGT, B12, HCV1, DARREN #### [place] [address] #### AHBE #### [place] [address] AMYon 08-31-2020 Amylase [Catalytic activity/Vol] 61 U/L Normal 25-115 [facility] ([place]) Comment on above: Performed By: #### A MY, FE, LIP, GGT, B12, HCV1, DARREN #### [place] [address] #### AHBE #### [place] [address]227 B12on 08-31-2020 Cobalamin (Vitamin B12) [Mass/Vol] 538 pg/mL Normal 211-911 [facility] [place] Comment on above: Performed By: #### A MY, FE, LIP, GGT, B12, HCV1, DARREN #### [place] [address] #### AHBE #### [place] [address] FEon 08-31-2020 Iron [Mass/Vol] 99 ug/dL Normal 65-175 [facility] ([place]) Comment on above: Performed By: #### A MY, FE, LIP, GGT, B12, HCV1, DARREN #### [place] [address] #### AHBE #### [place] [address]227 GGTon 08-31-2020 Gamma glutamyl transferase [Catalytic activity/Vol] 100 U/L High 15-85 [facility] ([place] Comment on above: Performed By: #### A MY, FE, LIP, GGT, B12, HCV1, DARREN #### [place] [address] #### AHBE #### [place] [address] HCVon 08-31-2020 Hep C Ab Non-Reactive Normal Non-Reactive [facility] [place] Comment on above: Performed By: #### A MY, FE, LIP, GGT, B12, HCV1, DARREN #### [place] [address] #### AHBE #### [place] [address] Hep C Ab Int Nonreactive: Samples with a value < 0.80 are considered nonreactive (negative) for antibodies to HCV. Normal [facility] ([place] Comment on above: Performed By: #### A MY, FE, LIP, GGT, B12, HCV1, DARREN #### [place] [address] #### AHBE #### [place] [address] LIPon 08-31-2020 Lipase Level 251 U/L Normal 73-393 [facility] [place] Comment on above: Performed By: #### A MY, FE, LIP, GGT, B12, HCV1, DARREN #### [place] [address] #### AHBE #### [address] [address] US ABDOMEN LIMITEDon 020 US ABDOMEN LIMITED ORIGINAL Ultrasound of the RIGHT upper quadrant CLINICAL STATEMENT:Elevated liver function with boarderline DM, COMPARISON: None FINDINGS: The gallbladder is normal. There is no intra or extrahepatic bile duct dilatation. The common duct is 4 mm at the collins hepatis. The visualized liver shows changes compatible with fatty infiltration. No focal mass is seen. No obvious nodularity of the liver margins.. The pancreas is poorly delineated and not clearly separate from the surrounding soft tissues. Small pancreatic lesions are not excludable. No ascites is seen in the RIGHT upper quadrant. Limited survey images of the RIGHT kidney show no pelvocaliectasis. IMPRESSION: Fatty liver. No acute findings. Interpreted By: Juanjose Sorenson MD Preliminary Report By: Juanjose Sorenson MD Electronically Signed By: Juanjose Sorenson MD Dictated Date: 08/31/2020 9:34:45 AM Prelim Date: 08/31/2020 9:34:45 AM Sign Date: 08/31/2020 9:35:51 AM Ordering Provider:Melody Mary Normal [facility] ([place] GLUon 11-03-2019 Glucose [Mass/Vol] 103 mg/dL Normal 70-105 [facility] [place] Comment on above: Performed By: #### Angy DAWSON, LIPID #### [address] [address] LIPIDon 11-03-2019 Cholesterol [Mass/Vol] 304 mg/dL High 0-200 [facility] ([place]) Comment on above: Result Comment: Chol esterol Reference Interval: Less than 200 Desirable 200-239 Borderline high risk 240 and above High risk Performed By: #### G SAMIR, LIPID #### [address] [address] Cholesterol in HDL [Mass/Vol] 52 mg/dL Normal 40-60 [facility]) Comment on above: Performed By: #### Angy DAWSON, LIPID #### [address] [address] Cholesterol in LDL [Mass/Vol] 226 mg/dL High 0-130 [facility] [place] Comment on above: Performed By: #### Angy DAWSON, LIPID #### [address] [address] Triglyceride [Mass/Vol] 130 mg/dL Normal 0-150 [facility] [place] Comment on above: Result Comment: Trig lyceride Reference Interval: Less than 150 Normal 150-199 Borderline high risk 200-499 High risk 500 or higher Very high risk Performed By: #### G SAMIR, LIPID #### [address] [address] Vital Signs Date Time Vital Sign Value Performing Clinician Facility 02-14-2025 14:59-0400 Body height 180.3 cm Shana Farris BELL CLERK.RFID ANALYST Work Phone: [phone] [place] [address] 02-14-2025 14:59-0400 Body mass index (BMI) [Ratio] 26.84 kg/m2 Shana Farris BELL CLERK.RFID ANALYST Work Phone: [facility] 02-14-2025 14:59-0400 Body weight 87.3 kg Shana Farris BELL CLERK.RFID ANALYST Work Phone: [phone] [place] [address] 02-14-2025 14:59-0400 Diastolic blood pressure 72 mm[Hg] Shana Farris BELL CLERK.RFID ANALYST Work Phone: [phone] [place] [address] 02-14-2025 14:59-0400 Heart rate 75 /min Shana Farris BELL CLERK.RFID ANALYST Work Phone: [phone] [place] [address] 02-14-2025 14:59-0400 Systolic blood pressure 128 mm[Hg] Shana Farris BELL CLERK.RFID ANALYST Work Phone: [phone] [place] [address] 02-15-2024 15:15-0400 Body height 180.3 cm Shana Farris BELL CLERK.RFID ANALYST Work Phone: [phone] [place] [address] 02-15-2024 15:15-0400 Body weight 85.28 kg Shana Farris BELL CLERK.RFID ANALYST Work Phone: [phone] [place] [address] 02-15-2024 15:15-0400 Diastolic blood pressure 80 mm[Hg] Shana Farris BELL CLERK.RFID ANALYST Work Phone: [phone] [place] [address] 02-15-2024 15:15-0400 Heart rate 93 /min Shana Farris BELL CLERK.RFID ANALYST Work Phone: [phone] [place] [address] 02-15-2024 15:15-0400 SaO2% (BldA) [Mass fraction] 95 % Shana Farris BELL CLERK.RFID ANALYST Work Phone: [facility] 02-15-2024 15:15-0400 Systolic blood pressure 138 mm[Hg] Shana Farris BELL CLERK.RFID ANALYST Work Phone: [facility] 01-29-2023 15:48-0500 Body height 180.3 cm [employer] Work Phone: [facility] 01-29-2023 15:48-0500 Body weight 84.37 kg [employer] Work Phone: [facility] 01-29-2023 15:48-0500 Diastolic blood pressure 82 mm[Hg] [employer] Work Phone: [facility] 01-29-2023 15:48-0500 Heart rate 77 /min [employer] Work Phone: [facility] 01-29-2023 15:48-0500 Systolic blood pressure 138 mm[Hg] [employer] Work Phone: [facility] 05-22-2021 07:36-0400 SaO2% (BldA) [Mass fraction] 97 % [facility] Comment on above: Order Comment: Ayanna Degroot Performed By: #### L 500.87311, L500.66133, L500.65688, L500.70598 #### [facility] [address] [place] [address] 05-21-2021 20:55-0400 SaO2% (BldA) [Mass fraction] 100 % [facility] Comment on above: Performed By: #### L 500.84349, L500.10970, L500.19476 #### [facility] [address] [place] [address] 05-21-2021 16:59-0400 SaO2% (BldA) [Mass fraction] 100 % [facility] Comment on above: Order Comment: Ayanna sMindy Degroot Performed By: #### L 550.00885 #### [facility] [address] [place] [address] Encounters Encounter Date Encounter Type Care Provider Facility Start: 02-14-2025 End: 02-14-2025 Patient encounter procedure Shana Farris APRN.RFID ANALYST Work Phone: [facility] Comment on above: Coronary artery dise ase involving chilkat coronary artery of chilkat heart without angina pectoris (Primary Dx); Hyperlipidemia LDL goal <70; Essential hypertension, benign; Hx of CABG; History of left heart catheterization; History of stress test; Vaping nicotine dependence, tobacco product Start: 02-14-2025 End: 02-14-2025 ambulatory SHANA FARRIS Facility:[id number] Start: 01-20-2025 End: 01-20-2025 ambulatory Melody Schwartzhoda Mary SYSTEMS SOFTWARE DESIGNER-C Work Phone: [facility] Work Phone: Start: 01-20-2025 End: 01-20-2025 Patient encounter procedure Melody Schwartzhoda Mary SYSTEMS SOFTWARE DESIGNER-C [facility] Work [facility]: Start: 01-20-2025 End: 01-20-2025 ambulatory Melody Mary Facility:[facility] Start: 08-19-2024 End: 08-19-2024 ambulatory Melody Parminder Usman Facility:[facility] Start: 02-15-2024 End: 02-15-2024 Patient encounter procedure Shana Farris APRN.RFID ANALYST Work Phone: [facility] Comment on above: Essential hypertensi on, benign (Primary Dx); History of stress test; Hx of CABG; History of left heart catheterization; Former smoker; Vaping nicotine dependence, tobacco product; Cigarette smoker Start: 01-22-2024 End: 01-22-2024 ambulatory [facility] Work Phone: Start: 01-22-2024 End: 01-22-2024 Patient encounter procedure [facility] Work Phone: Start: 07-14-2023 End: 07-14-2023 ambulatory [facility] Work Phone: Start: 07-14-2023 End: 07-14-2023 Patient encounter procedure [facility] Work Phone: Start: 02-24-2023 Telephone encounter Elena russo APRN.RFID ANALYST Work Phone: [facility] Comment on above: Results (Stress test ) Start: 02-24-2023 ambulatory LOS FULLER Facility: [facility] Start: 02-24-2023 End: 02-24-2023 Subsequent hospital visit by physician Provider [facility] Start: 01-29-2023 End: 01-30-2023 ambulatory LOS FULLER Facility:[facility] Start: 01-29-2023 End: 01-29-2023 Patient encounter procedure Los Fuller DO Work Phone: [facility] Comment on above: Essential hypertensi on, benign (Primary Dx); Hyperlipidemia LDL goal <70; Hx of CABG; History of cardiovascular stress test; History of left heart catheterization; Former smoker; Chest pain, unspecified type Start: 01-29-2023 Telephone encounter Los Fuller DO Work Phone: [facility] Comment on above: PA for stress test Start: 01-02-2023 End: 01-02-2023 ambulatory [facility] Work Phone: Start: 01-02-2023 End: 01-02-2023 Patient encounter procedure [facility] Start: 05-14-2022 End: 05-14-2022 Patient encounter procedure [facility] Start: 03-28-2022 Refill Los chakraborty DO Work Phone: [facility] Comment on above: Refill Request Start: 03-21-2022 End: 03-21-2022 [facility] Procedures Date Procedure Procedure Detail Performing Clinician Start: 02-14-2025 Ecg routine ecg w/le ast 12 lds i&r only Shana Farris APRN.RFID ANALYST Work Phone: Start: 02-15-2024 Ecg routine ecg w/le ast 12 lds i&r only Shana Farris APRN.RFID ANALYST Work Phone: Start: 02-24-2023 NM SHIRA SPECT MULTI ([facility]) Los Fuller DO Work Phone: Start: 02-24-2023 NUCLEAR STRESS TEST (WT<440#) ([facility]) Los Fuller DO Work Phone: Start: 03-21-2022 X-ray of lumbosacral spine Start: 03-21-2022 Plain X-ray of shoulder Start: 05-21-2021 History of coronary artery bypass grafting Hx of CABG Los Fuller DO Work Phone: Start: 05-20-2021 Antibody screen Comment on above: Order Comment: Campu s: M Surgery Date: 05/21/21 Irradiated: N Washed: N Start: 05-20-2021 Ecg routine ecg w/le ast 12 lds i&r only Start: 10-12-2020 Lipid 1996 panel - S elena or Plasma Provider [facility] History of coronary artery bypass grafting Hx of CABG Los Fuller DO Work Phone: History of coronary artery bypass grafting Hx of CABG Shana Farris BELL CLERK.RFID ANALYST Work Phone: History of coronary artery bypass grafting Hx of CABG Shana Farris BELL CLERK.RFID ANALYST Work Phone: Plan of Treatment Date Care Activity Detail Author Start: 02-14-2026 End: 02-14-2026 Patient encounter procedure 02/14/2026 2:40 PM EDT Office Visit [facility] [address] [place] [address] [place] [address] Shana Farris APRN.[address] [place] [address] 1 year follow up, CAD [facility] Comment on above: 1 year follow up, CA D Start: 02-14-2026 BP Controlled (<130/80) BP Controlle d (<130/80) [facility] Start: 01-21-2026 Screening for malign ant neoplasm of colon [facility] Start: 10-12-2025 Lipid 1996 panel - S elena or Plasma Lipid Screening [facility] Start: 10-12-2025 Lipid panel Lipid Screening [facility] Start: 10-12-2025 LIPID SCREEN LIPID SCREEN [facility] Start: 07-24-2024 Covid-19 Vaccine ( season) Covid-19 Vaccine ( season) [facility] Start: 06-18-2024 DIABETES SCREEN DIABETES SCREEN [facility] Start: 06-18-2024 Diabetes Screening Diabetes Screenin g [facility] Start: 11-23-2023 [facility] Start: 10-12-2023 DIABETES SCREEN DIABETES SCREEN [facility] Start: 07-24-2023 Covid-19 Vaccine ( season) Covid-19 Vaccine () [facility] Start: 07-24-2023 Influenza vaccination [facility] Start: 11-23-2022 DEPRESSION ASSESSMENT DEPRESSION ASS ESSMENT [facility] Start: 07-24-2022 Influenza vaccination [facility] Start: 09-18-2021 COVID-19 VACCINE (3 - Booster for Pfizer series) COVID-19 VACCINE (3 - Booster for Pfizer series) [facility] Start: 06-13-2021 COVID-19 VACCINE (3 - Booster for Pfizer series) COVID-19 VACCINE (3 - Booster for Pfizer series) [facility] Start: 06-13-2021 Covid-19 Vaccine (3 - Pfizer series) Covid-19 Vaccine (3 - Pfizer series) [facility] Start: 11-03-2020 Pneumococcal vaccination Pneum ococcal Vaccine (2 of 2 - PCV) [facility] Start: 11-03-2020 Pneumococcal Vaccine : 50+ (2 of 2 - PCV) Pneumococcal Vaccine: 50+ (2 of 2 - PCV) [facility] Start: 02-23-2020 SHINGRIX VACCINE (1 of 2) SHINGRIX VACCINE (1 of 2) [facility] Start: 2015 COLOGUARD (FIT-DNA) COLOGUARD (FIT-D NA) [facility] Start: 2015 Colonoscopy COLONOSCOPY [facility] Start: 2015 COLORECTAL CANCER SCREENING COLORECTAL CANCER SCREENING [facility] Start: [address] COLONOGRAPHY [facility] Start: 2015 FECAL OCCULT BLOOD FECAL OCCULT BLOO D [facility] Start: 2015 Screening for malign ant neoplasm of colon [facility] Start: 2015 SIGMOIDOSCOPY SIGMOIDOSCOPY [facility] Start: 1989 Hepatitis B Vaccine (1 of 3 - 19+ 3-dose series) Hepatitis B Vaccine (1 of 3 - 19+ 3-dose series) [facility] Start: 1989 Urine microalbumin profile [facility] Start: 02-23-1988 ANNUAL PCP TEAM ENGRAVER [employer] CHA DISEASE VISIT ANNUAL PCP TEAM CHRONIC DISEASE VISIT [facility] Start: 02-23-1988 Anxiety Screening Anxiety Screening [facility] Start: 02-23-1988 BP CONTROLLED (<130/80) BP CONTROLLE D (<130/80) [facility] Start: 02-23-1988 Depression Screening Depression Scre ening [facility] Start: 02-23-1988 HEPATITIS C SCREENING HEPATITIS C [facility] Start: 02-23-1988 Hepatitis C screening Hepatitis C [facility] Start: 02-23-1988 HIV SCREENING HIV SCREENING [facility] Start: 02-23-1988 HIV screening HIV Screening [facility] Start: 1982 Adult depression screening assessment DEPRESSION SCREENING [facility] Start: 02-23-1976 PNEUMOCOCCAL (1 - PCV) PNEUMOCOCCAL (1 - PCV) [facility] Start: 02-23-1976 Pneumococcal vaccination Pneum ococcal Vaccine (1 - PCV) [facility] Start: 1970 HEPATITIS B (1 of 3 - 3-dose series) HEPATITIS B (1 of 3 - 3-dose series) [facility] Start: 1970 Hepatitis B Vaccine (1 of 3 - 3-dose series) Hepatitis B Vaccine (1 of 3 - 3-dose series) [facility] ECG COMPLETE ECG COMPLETE ECG Routine Essential hypertension, benign 01/29/2023 3:46 PM EST [facility] Work Phone: ECG COMPLETE ECG COMPLETE ECG Routine Essential hypertension, benign 02/15/2024 3:21 PM EDT [facility] Work Phone: ECG COMPLETE ECG COMPLETE ECG Routine Essential hypertension, benign 02/14/2025 3:05 PM EDT [facility] Work Phone: End: 02-28-2024 NM CARDIAC PERF STRESS/EXERCISE NM CARDIAC PERF STRESS/EXERCISE Radiology Routine Chest pain, unspecified type 1 Occurrences starting 02/01/2023 until 02/28/2024 [facility] Work Phone: Comment on above: 1 Occurrences starti ng 02/01/2023 until 02/28/2024 [facility] Payers Date Payer Category Payer Self-pay [id number] 2020 [employer] BLUE CARD PPO OOS [id number] 2020 Unknown [employer] BLUE CARD PPO OOS [id number] 2020-Present [phone] [place] [address] PPO [id number] 2020 Unknown [employer] BLUE CARD PPO OOS [id number] 2020-Present [phone] [place] [address] PPO [id number] 2020 Unknown [id number] Private Health Insurance [id number] Unknown [id number] Unknown [id number] Unknown [id number] Social History Date Type Detail Facility Start: 05-03-2020 End: 05-03-2020 Tobacco smoking status NHIS Unknown if ever smoked [facility] Start: 1970 Sex Assigned At Male [facility] Start: 06-12-2021 End: 02-14-2025 Tobacco smoking status NHIS Ex-smoker [facility] Start: 11-23-1994 End: 11-23-2020 History of tobacco use Current smoker [facility] Start: 06-12-2021 End: 02-15-2024 Cigarettes smoked current (pack per day) - Reported 1 [facility] Start: 06-12-2021 End: 02-14-2025 Tobacco use and exposure Smokeless tobacco non-user [facility] Start: 01-23-2022 End: 02-14-2025 Alcohol intake Current drinker of alcohol (finding) [facility] Start: 05-14-2021 History SDOH Alcohol Comment once or twice weekly [facility] Start: 1970 Sex Assigned At Not on file [facility] Start: 11-23-1994 End: 02-15-2024 Tobacco smoking status NHIS Occasional tobacco smoker [facility] Start: 11-23-1994 History of tobacco use Cigarette Smo ker [facility] Start: 02-24-2023 End: 02-15-2024 Tobacco use panel [facility] National Score (1-10 0), lower number is lower risk 56 [facility] Start: 02-15-2024 Tobacco Comment Started vaping after CABG surgery but cigarettes prior to surgery [facility] Start: 02-14-2025 Alcohol Comment 1-2 times monthly [facility] Start: 05-03-2020 Tobacco smoking stat us VTIS Smokes tobacco daily (finding) [facility] Start: 02-03-2025 Sex Male (finding) [facility] Goals Date Patient Goal Desired Activity /State Personal health goal Clinical Notes 10-30-2020 to 02-14-2025 Shana Farris APRN.RFID ANALYST - 02/14/2025 2:52 PM Shana Hair APRN.RFID ANALYST - 02/13/2024 1:57 PM EDTTelephone Encounter - Sima Dias MA - 02/24/2023 3:33 PM EDT Note Date & Type Note Facility 02-14-2025 Note HNO ID: [id number] Author: SHANA FARRIS APRN.DINESH Service: ? Author Type: Nurse Practitioner Type: Progress Notes Filed: 02/14/2025 16:54 Note Text: [facility] Department of Cardiology Referring Provider: No ref. provider found Date: February 14, 2025 Chief Complaint: Essential hypertension, benign Subjective: The patient is a 54-year-old male with a history of hypertension and CAD, status post-CABG x3, presenting for follow-up. Patient denies any headaches, dizziness, syncope or near syncopal episodes. Patient has had no chest pain, palpitations, PND, or orthopnea. The patient underwent CABG x3 on 05/21/2021 at [facility], performed by Dr. Davila. Prior to the surgery, a cardiac catheterization on 05/20/2021 revealed 80% stenosis of the distal LM, 99% stenosis of the proximal LAD, normal circumflex artery, and 100% occlusion of the RCA with collateral circulation from the left to right. LV function was normal. He is a former cigarette smoker and currently uses vaping with nicotine. He is currently on Crestor for CAD and takes antihypertensive medication daily. ALLERGIES Allergen Reactions Morphine Unknown PAST MEDICAL [...] L to R collaterals. Normal LV function History of stress test 02/24/2023 No ischemia. EF 64% Hx of CABG 05/21/2021 CABG x3 using PARSONS to mid LAD, reverse SVG to OM 2, reverse SVG to high take off posterior descending. Done by Dr. Davila @ [facility] Hyperlipidemia Hypertension Type 2 diabetes mellitus (HCC) History reviewed. No pertinent surgical history. FAMILY HISTORY Problem Relation Age of Onset Ovarian cancer Mother other (Other CABG) Father other (CABG) Paternal Grandfather SOCIAL HISTORY: Tobacco Use: Types: Cigarettes Alcohol Use: Yes (1-2 times monthly) Drug Use: Not Currently Employer And Job Title: None on file Years Of Education Completed: Not specified Marital Status: MEDICATIONS: Current Outpatient Medications Medication Sig metFORMIN ER (FORTAMET) 500 mg 24 hr tablet Take 1 tablet by mouth once daily. meloxicam (MOBIC) 15 mg tablet Take 15 mg by mouth once daily. ramipril (ALTACE) 10 mg capsule Take 10 mg by mouth once daily. rosuvastatin (CRESTOR) 20 mg tablet Take 20 mg by mouth once daily. aspirin (ASPIR-81 ORAL) Take 1 tablet by mouth once daily. No current facility-administered medications for this visit. I have personally reviewed the patients past medical history including social, family, surgical, diagnostics, and medications./AB REVIEW OF SYSTEMS: Review of Systems Constitutional: Negative for chills and fatigue. Respiratory: Negative for chest tightness and shortness of breath. Cardiovascular: Negative for chest pain, palpitations and leg swelling. Neurological: Negative for dizziness, syncope, weakness and light-headedness. Hematological: Bruises/bleeds easily. Psychiatric/Behavioral: Negative for confusion and hallucinations. Vitals: BP 128/72 (BP Site: Left Arm, BP Position: Sitting, BP Cuff Size: Large Adult) Pulse 75 Ht 180.3 cm (5' 11) Wt 87.3 kg (192 lb 7.4 oz) BMI 26.84 kg/m? PHYSICAL EXAMINATION: BP 128/72 (BP Site: Left Arm, BP Position: Sitting, BP Cuff Size: Large Adult) Pulse 75 Ht 180.3 cm (5' 11) Wt 87.3 kg (192 lb 7.4 oz) BMI 26.84 kg/m? Last 3 Encounter BP Readings: Date: BP: 02/15/2024 138/80 01/29/2023 138/82 01/23/2022 132/64 Last 3 Encounter Pulse Readings: Date: Pulse: 02/15/2024 93 01/29/2023 77 01/23/2022 72 Last 3 Encounter Wt Readings: Date: Wt: 02/15/2024 85.3 kg (188 lb) 01/29/2023 84.4 kg (186 lb) 01/23/2022 81.6 kg (180 lb) Physical Exam Vitals reviewed. Constitutional: General: He is not in acute distress. Appearance: Normal appearance. He is not ill-appearing or diaphoretic. Neck: Vascular: No carotid bruit. Cardiovascular: Rate and Rhythm: Normal rate and [...] side and 2+ on the left side. Poste (more content not included)... [facility] 02-14-2025 History of Presen t illness Narrative Images from the original note were not included. [facility] Department of Cardiology Referring Provider: No ref. provider found Date: February 14, 2025 Chief Complaint: Essential hypertension, benign Subjective: The patient is a 54-year-old male with a history of hypertension and CAD, status post-CABG x3, presenting for follow-up. Patient denies any headaches, dizziness, syncope or near syncopal episodes. Patient has had no chest pain, palpitations, PND, or orthopnea. The patient underwent CABG x3 on 05/21/2021 at [facility], performed by Dr. Davila. Prior to the surgery, a cardiac catheterization on 05/20/2021 revealed 80% stenosis of the distal LM, 99% stenosis of the proximal LAD, normal circumflex artery, and 100% occlusion of the RCA with collateral circulation from the left to right. LV function was normal. He is a former cigarette smoker and currently uses vaping with nicotine. He is currently on Crestor for CAD and takes antihypertensive medication daily. ALLERGIES Allergen Reactions Morphine Unknown PAST MEDICAL [...] L to R collaterals. Normal LV function History of stress test 02/24/2023 No ischemia. EF 64% Hx of CABG 05/21/2021 CABG x3 using PARSONS to mid LAD, reverse SVG to OM 2, reverse SVG to high take off posterior descending. Done by Dr. Davila @ [facility] Hyperlipidemia Hypertension Type 2 diabetes mellitus (HCC) History reviewed. No pertinent surgical history. FAMILY HISTORY Problem Relation Age of Onset Ovarian cancer Mother other (Other CABG) Father other (CABG) Paternal Grandfather SOCIAL HISTORY: Tobacco Use: Types: Cigarettes Alcohol Use: Yes (1-2 times monthly) Drug Use: Not Currently Employer And Job Title: None on file Years Of Education Completed: Not specified Marital Status: MEDICATIONS: Current Outpatient Medications Medication Sig metFORMIN ER (FORTAMET) 500 mg 24 hr tablet Take 1 tablet by mouth once daily. meloxicam (MOBIC) 15 mg tablet Take 15 mg by mouth once daily. ramipril (ALTACE) 10 mg capsule Take 10 mg by mouth once daily. rosuvastatin (CRESTOR) 20 mg tablet Take 20 mg by mouth once daily. aspirin (ASPIR-81 ORAL) Take 1 tablet by mouth once daily. No current facility-administered medications for this visit. I have personally reviewed the patients past medical history including social, family, surgical, diagnostics, and medications./AB REVIEW OF SYSTEMS: Review of Systems Constitutional: Negative for chills and fatigue. Respiratory: Negative for chest tightness and shortness of breath. Cardiovascular: Negative for chest pain, palpitations and leg swelling. Neurological: Negative for dizziness, syncope, weakness and light-headedness. Hematological: Bruises/bleeds easily. Psychiatric/Behavioral: Negative for confusion and hallucinations. Vitals: BP 128/72 (BP Site: Left Arm, BP Position: Sitting, BP Cuff Size: Large Adult) Pulse 75 Ht 180.3 cm (5' 11) Wt 87.3 kg (192 lb 7.4 oz) BMI 26.84 kg/m PHYSICAL EXAMINATION: BP 128/72 (BP Site: Left Arm, BP Position: Sitting, BP Cuff Size: Large Adult) Pulse 75 Ht 180.3 cm (5' 11) Wt 87.3 kg (192 lb 7.4 oz) BMI 26.84 kg/m Last 3 Encounter BP Readings: Date: BP: 02/15/2024 138/80 01/29/2023 138/82 01/23/2022 132/64 Last 3 Encounter Pulse Readings: Date: Pulse: 02/15/2024 93 01/29/2023 77 01/23/2022 72 Last 3 Encounter Wt Readings: Date: Wt: 02/15/2024 85.3 kg (188 lb) 01/29/2023 84.4 kg (186 lb) 01/23/2022 81.6 kg (180 lb) Physical Exam Vitals reviewed. Constitutional: General: He is not in acute distress. Appearance: Normal appearance. He is not ill-appearing or diaphoretic. Neck: Vascular: No carotid bruit. Cardiovascular: Rate and Rhythm: Normal rate and [...] is normal. Breath sounds: Normal breath sounds. No wheezing, rhonchi or rales. Abdominal: General: Abdomen is flat. Bowel sounds are normal. Palpations: Abdomen is soft. Tenderness: There is no abdominal tenderness. There is no guarding. Musculoskeletal: Right lower leg: No edema. Left lower leg: No edema. Skin: General: Skin is warm. Coloration: Skin is not jaundiced. Findings: No bruising, rash or wound. Neurological: General: No focal deficit present. Mental Status: He is alert and oriented [...] Triglyceride (mg/dL) Date Value 10/12/2020 217 EKG: I have provided a picture of today's EKG for your convenience and easy access. please note the interpretation on the EKG image is computer-generated and not the official interpretation DIAGNOSTIC RESULTS: (05/20/2021) Cardiac Catheterization: - Distal LM: 80% stenosis - Proximal LAD: 99% stenosis - CX: Normal - RCA: 100% occlusion, filled by [id number] collaterals - LV function: Normal ASSESSMENT/PLAN: 1. Coronary artery disease involving chilkat coronary artery of chilkat heart without angina pectoris - ICD9: 414.01, ICD10: I25.10 (primary diagnosis) -Patient denies any chest pain or chest pressure -Patient denies any new shortness of breath -Currently taking Crestor 10 mg nightly 2. Hyperlipidemia LDL goal <70 - ICD9: 272.4, ICD10: E78.5 -Followed and managed by primary care -Currently taking Crestor 10 mg nightly -Patient reports lab work through [facility], Ordered by his primary care - Continue current medications - Counseled on healthy diet and regular exercise - Discussed need for and benefit of weight loss. BMI 26.84 kg/(m^2) 3. Essential hypertension, benign - ICD9: 401.1, ICD10: I10 -Good control - Continue current medications -Ramipril 10 mg daily - Recommend home blood pressure monitoring, to bring results to next visit - Encouraged sodium restriction, DASH or Mediterranean diet - Recommend regular aerobic exercise - Discussed need for and benefit of weight loss. BMI 26.84 kg/(m^2) - Smoking cessation encouraged; discussed risks to health and quitting strategies. Patient is not ready to quit - ECG COMPLETE 4. Hx of CABG - ICD9: V45.81, ICD10: Z95.1 -CABG x3 on 05/21/2021, using PARSONS to mid LAD, reverse SVG to OM 2, reverse SVG to high take off posterior descending. Done by Dr. Davila @ [facility] 5. History of left heart catheterization - ICD9: V15.1, ICD10: Z98.890 -Heart catheterization 05/20/2021 -- Distal LM: 80% stenosis - Proximal LAD: 99% stenosis - CX: Normal - RCA: 100% occlusion, filled by [id number] collaterals - LV function: Normal 7. Vaping nicotine dependence, tobacco product - ICD9: 305.1, ICD10: F17.290 - Cessation encouraged. - Physiologic and physical aspects of tobacco addiction as well as strategies for quitting were discussed. - Counseling was given focusing on the harmful effects of this addiction especially given the patient's medical condition(s) which will be worsened because of the chemicals in tobacco. Shana Farris APRN.RFID ANALYST PATIENT EDUCATION AND INSTRUCTIONS: We discussed your history of coronary artery disease and hypertension: - Continue taking Crestor as prescribed to manage your coronary artery disease. - It is important to monitor your blood pressure regularly to ensure your hypertension remains controlled. Please keep a record of your readings and bring them to your next visit. We discussed your history of bypass surgery and heart catheterization: - You underwent a coronary artery bypass graft (CABG) x3 on May 21, 2021, at [facility], performed by Dr. Davila. This was preceded by a heart catheterization on May 20, 2021, which showed significant blockages, including 80% distal LM, 99% proximal LAD, and 100% RCA (filled by [id number]-[id number] collaterals). Your CX was normal, and your LV function was normal. We discussed your smoking history and current vaping: - As a former cigarette smoker who currently vapes with nicotine, I strongly recommend discontinuing vaping to reduce your cardiovascular risk. If you need assistance with smoking cessation, please let me know, and we can discuss resources or medications to help you quit. FOLLOW UP IN: 1 year CAD Greater than 50% of this > 20 minute visit was spent face to face discussing current diagnosis and treatment plan consisting of above outlined plan. Follow-up as documented above. I have discussed the recommended treatment, alternative treatments and other treatment options in detail. I have discussed the risks, benefits and side effect of the recommended treatment. I have attempted to answer all their questions to their satisfaction and understanding of the explanation has been voiced. With approval we will pursue the recommended treatment. During this office visit I reviewed the patients previous Cardiac testing and procedures results and reviewed the results with the patient. Shana Reyes CNP have reviewed and agree with the information in the medical record transcribed by Jacek Hopkins MA. Shana Farris APRN.DINESH This patient note was partially generated from using the [employer] voice recognition system. There may be some incorrect words, spelling, and punctuation that were not noted in checking the note prior to saving documented in this encounter [facility] 02-13-2024 History of Presen t illness Narrative Images from the original note were not included. [facility] Department of Cardiology Referring Provider: No ref. provider found Date: February 15, 2024 Chief Complaint: Established; hypertension/history bypass Subjective: Sakshi Kelley is a 53 year old male who presents as an established patient for hypertension and history of coronary bypass assessment and management. Patient denies any headaches, dizziness, syncope or near syncopal episodes. Patient has had no chest pain, palpitations, PND, or orthopnea. ALLERGIES Allergen Reactions Morphine Unknown PAST MEDICAL [...] L to R collaterals. Normal LV function History of stress test 02/24/2023 No ischemia. EF 64% Hx of CABG 05/21/2021 CABG x3 using PARSONS to mid LAD, reverse SVG to OM 2, reverse SVG to high take off posterior descending. Done by Dr. Davila @ [facility] Hyperlipidemia Hypertension History reviewed. No pertinent surgical history. FAMILY HISTORY Problem Relation Age of Onset Ovarian cancer Mother other (Other CABG) Father other (CABG) Paternal Grandfather SOCIAL HISTORY: Tobacco Use: Types: Cigarettes Alcohol Use: Yes (once or twice weekly ) Drug Use: Not Currently Employer And Job Title: None on file Years Of Education Completed: Not specified Marital Status: MEDICATIONS: Current Outpatient Medications Medication Sig meloxicam (MOBIC) 15 mg tablet Take 15 mg by mouth once daily. ramipril (ALTACE) 10 mg capsule Take 10 mg by mouth once daily. rosuvastatin (CRESTOR) 20 mg tablet Take 20 mg by mouth once daily. aspirin (ASPIR-81 ORAL) Take by mouth once daily. metoprolol tartrate, short acting, (LOPRESSOR) 50 mg tablet Take 1 tablet by mouth once daily. apixaban (ELIQUIS) 5 mg tab(s) Take 5 mg by mouth two times a day. benzonatate (TESSALON PERLE) 100 mg capsule TAKE 1 CAPSULE BY MOUTH THREE TIMES A DAY NEEDED FOR COUGH clopidogrel (PLAVIX) 75 mg tablet TAKE 1 TABLET BY MOUTH EVERYDAY AT BEDTIME docusate sodium (COLACE) 100 mg capsule Take 100 mg by mouth two times a day. magnesium oxide (MAG-OX) 400 mg (241.3 mg magnesium) tablet Take 1 tablet by mouth once daily. atorvastatin (LIPITOR) 40 mg tablet Take 1 tablet by mouth once daily. No current facility-administered medications for this visit. I have personally reviewed the patients past medical history including social, family, surgical, diagnostics, and medications./AB REVIEW OF SYSTEMS: Review of Systems Constitutional: Positive for fatigue. Negative for chills. Respiratory: Positive for shortness of breath. Negative for chest tightness. Cardiovascular: Negative for chest pain, palpitations and leg swelling. Neurological: Positive for light-headedness. Negative for dizziness, syncope and weakness. Hematological: Bruises/bleeds easily. Psychiatric/Behavioral: Negative for confusion and hallucinations. Vitals: BP 138/80 (BP Site: Left Arm, BP Position: Sitting, BP Cuff Size: Large Adult) Pulse 93 Ht 180.3 cm (5' 11) Wt 85.3 kg (188 lb) SpO2 95% BMI 26.22 kg/m PHYSICAL EXAMINATION: BP 138/80 (BP Site: Left Arm, BP Position: Sitting, BP Cuff Size: Large Adult) Pulse 93 Ht 180.3 cm (5' 11) Wt 85.3 kg (188 lb) SpO2 95% BMI 26.22 kg/m Last 3 Encounter BP Readings: Date: BP: 01/29/2023 138/82 01/23/2022 132/64 06/12/2021 126/82 Last 3 Encounter Pulse Readings: Date: Pulse: 01/29/2023 77 01/23/2022 72 06/12/2021 71 Last 3 Encounter Wt Readings: Date: Wt: 01/29/2023 84.4 kg (186 lb) 01/23/2022 81.6 kg (180 lb) 06/12/2021 77.6 kg (171 lb) Physical Exam Vitals reviewed. Constitutional: General: He is not in acute distress. Appearance: Normal appearance. He is not ill-appearing or diaphoretic. Cardiovascular: Rate and Rhythm: Normal rate and [...] is normal. Breath sounds: Normal breath sounds. No wheezing, rhonchi or rales. Abdominal: General: Abdomen is flat. Bowel sounds are normal. Palpations: Abdomen is soft. Tenderness: There is no abdominal tenderness. There is no guarding. Musculoskeletal: Right lower leg: No edema. Left lower leg: No edema. Skin: General: Skin is warm. Coloration: Skin is not jaundiced. Findings: No bruising, rash or wound. Neurological: Mental Status: He is alert and oriented to person, place, and time. Motor: No weakness. Coordination: Coordination is intact. LABS: Glucose (MG/DL) [...] Triglyceride (mg/dL) Date Value 10/12/2020 217 EKG: I have provided a picture of today's EKG for your convenience and easy access. please note the interpretation on the EKG image is computer-generated and not the official interpretation DIAGNOSTIC RESULTS: ASSESSMENT/PLAN: 1. Essential hypertension, benign - ICD9: 401.1, ICD10: I10 (primary diagnosis) -Today's blood pressure is 138/80 -Good control - Continue current medications -Continue ramipril 10 mg daily - Recommend home blood pressure monitoring, to bring results to next visit - Encouraged sodium restriction, DASH or Mediterranean diet - Recommend regular aerobic exercise - ECG COMPLETE 2. History of stress test - ICD9: V15.89, ICD10: Z92.89 -History of a cardiac stress test 02/24/2023 showing no ischemia. EF 64% 3. Hx of CABG - ICD9: V45.81, ICD10: Z95.1 -History of a CABG 05/21/2021 -CABG x3 using PARSONS to mid LAD, reverse SVG to OM 2, reverse SVG to high take off posterior descending. Done by Dr. Davila @ [facility] 4. History of left heart catheterization - ICD9: V15.1, ICD10: Z98.890 -History of left heart catheterization 05/20/2021 -80% distal LM, 99% proximal LAD, normal Cx, 100% RCA being filled by L to R collaterals. Normal LV function 5. Former smoker - ICD9: V15.82, ICD10: Z87.891 -Patient quit smoking cigarettes 2020 6. Vaping nicotine dependence, tobacco product - ICD9: 305.1, ICD10: F17.290 -Patient does continue to use vaping nicotine. --Counseling was given focusing on the harmful effects of smoking addiction, especially given the patient's medical condition(s) which will become worse due to the harmful chemicals and tobacco. -Recommend behavior modifications Shana Farris APRN.CNP Follow up in: 1 year-CAD Greater than 50% of this > 20 minute visit was spent face to face discussing current diagnosis and treatment plan consisting of above outlined plan. Follow-up as documented above. I have discussed the recommended treatment, alternative treatments and other treatment options in detail. I have discussed the risks, benefits and side effect of the recommended treatment. I have attempted to answer all their questions to their satisfaction and understanding of the explanation has been voiced. With approval we will pursue the recommended treatment. During this office visit I reviewed the patients previous Cardiac testing and procedures results and reviewed the results with the patient. I, Shana Farris CNP have reviewed and agree with the information in the medical record transcribed by Jacek Hopkins MA. Shana Farris APRN.CNP This patient note was partially generated from using the [employer] voice recognition system. There may be some incorrect words, spelling, and punctuation that were not noted in checking the note prior to saving documented in this encounter [facility] 02-24-2023 Miscellaneous Notes Patient was called and given the message of the provider. Patient voiced understanding of the results. ----- Message from Elena Strickland APRN.CNP sent at 02/24/2023 11:16 AM EDT ----- Please let patient know stress test was normal. No signs of damage. documented in this encounter [facility] 02-03-2023 Miscellaneous Notes Scheduled stress at [facility] 02/24 at 630 am Patient advised and Order faxed Per LENNIE, Approved for [facility]; Auth # [id number] 02/02/2023-03/04/2023 Donell Dennis Prior authorization request for stress test to be done at [facility] in a month is being submitted for review. Please notify clerical staff when ready. Ebony Marie RN documented in this encounter [facility] 01-29-2023 Note HNO ID: [id number] Author: Los Fuller DO Service: ? Author Type: Physician Type: Progress Notes Filed: 02/01/2023 4:27 PM Note Text: Referring Provider: Los Fuller, Date: January 29, 2023 Chief Complaint: Established [...] posterior descending. Done by Dr. Davila @ [facility] Hyperlipidemia Hypertension No past surgical history on [...] Sitting) Pulse 77 Ht 180.3 cm (5' 11) Wt 84.4 kg (186 lb) BMI 25.94 kg/m? PHYSICAL EXAMINATION: BP 138/82 (BP Site: Left Arm, BP Position: Sitting) Pulse 77 Ht 180.3 cm (5' 11) Wt 84.4 kg (186 lb) BMI 25.94 [...] 2+ on t (more content not included)... [facility] 01-29-2023 History of Presen t illness Narrative Referring Provider: Los Fuller DO Date: January 29, 2023 Chief Complaint: [...] posterior descending. Done by Dr. Davila @ [facility] Hyperlipidemia Hypertension No past surgical history on [...] Sitting) Pulse 77 Ht 180.3 cm (5' 11) Wt 84.4 kg (186 lb) BMI 25.94 kg/m PHYSICAL EXAMINATION: BP 138/82 (BP Site: Left Arm, BP Position: Sitting) Pulse 77 Ht 180.3 cm (5' 11) Wt 84.4 kg (186 lb) BMI 25.94 [...] QTC Calculation (Bazett) 418 ms Calculated P [place] 43 degrees Calculated R [place] 74 degrees Calculated T [place] 49 degrees Narrative NAME : SAKSHI KELLEY PID : [id number] : 1970 Gender : Male Race : ORD : [id number] Procedure Date : Jan 29 2023 15:46:43 Edit Date : Jan 29 2023 15:46:22 Diagnosis: NORMAL SINUS RHYTHM NORMAL ECG NO PREVIOUS ECGS AVAILABLE Test Reason : Location : 6 : [facility] Overread By : , Edited By : , Referred By : LOS FULLER Acquired by : , Impression NORMAL SINUS [...] posterior descending. Done by Dr. Davila @ [facility] 4. History of cardiovascular stress test - [...] Marie RN , scribing for Dr. Los Fuller, was present in the room during the [...] In a pictorial format; I described the LA and QRS intervals. This was to show [...] one hundred percent of my time in aaeu-pr-glnk conversation with the patient. I answered all the questions and explained the diagnosis of overwhelming fatigue caused by beta-blockade. Now having chest pressure tightness fullness. Greater that 51% of my time was spent with osij-wm-ejih conversation with the patient. I have discussed [...] greater than 15 minutes I, Dr. Los Fuller, have reviewed and agree with the information in the medical record. Los Fuller DO documented in this encounter [facility] 03-28-2022 Miscellaneous Notes Patient calls requesting refill: Pending Prescriptions Disp Refills METOPROLOL TARTRATE 50 MG TABLET 90 tablet 3 Sig: Take 1 tablet by mouth once daily. CAITLIN: No Date of last visit:01/23/22 Phone #: [phone] (home) [phone] (work) The patients preferred pharmacy has been captured for this encounter? yes Pharmacy left voice mail message requesting refill: metoprolol tartrate, short acting, (LOPRESSOR) 50 mg tablet-Take 50 mg by mouth once daily 90 days [facility] Date of last visit:01/23/2022 w/Dr Fuller in [place] Phone #: [phone] (home) [phone] (work) The patients preferred pharmacy has been captured for this encounter? yes documented in this encounter [facility] 05-24-2021 Note [facility] [place] 05-23-2021 Note Occupational Therapy Inpatient Evaluation Medical Diagnosis: ABNORMAL STRESS TEST S/P HEART CATH ON 05/20/21 S/P CABG X3 W/BULLAE RESECTION ON 05/21/21 OCCUPATIONAL PROFILE AND HISTORY Therapy Diagnosis: Rank Code Description 1 Z95.1 Presence of aortocoronary bypass graft 2 Z74.1 Need for assistance with personal care Demographics: Age: 51Y Gender: Male Primary Language: Cambodian Preferred Language: Cambodian Referring Service/Team: Cardiology Past Medical History: Past [...] or scarring in the left upper lung. [facility] PATIENT NAME: SAKSHI KELLEY [address] [facility] [address] MED[facility] REC #: [id number] [place] [address] ADMIT DATE: 05/20/21 SERVICE DATE: 05/23/21 Occupational [...] he was not using an assistive device BETTING AGENCY MANAGER and was I w/all self care tasks and shares homemaking tasks w/his . 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 [facility] 05-23-2021 Note Physical Therapy Inpatient Evaluation Medical Diagnosis: Abnormal stress test, 05/21/21: CABG x 3 and left bullae resected from left upper lobe Therapy Diagnosis: Rank Code Description 1 R53.1 Weakness 2 R26.81 Unsteadiness on feet Demographics: Age: 51Y Gender: Male Primary Language: Cambodian Preferred Language: Cambodian Referring Service/Team: Medicine Past Medical History: Past [...] tip projects 5 cm above the corin. [facility] PATIENT NAME: SAKSHI KELLEY [address] 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 [place] MEDICAL REC #: [id number] [place] [address] ADMIT DATE: 05/20/21 SERVICE DATE: 05/23/21 Physical [...] stand with independ (more content not included)... [facility] 05-20-2021 Note DATE OF SERVICE: PROCEDURE: Heart Catheterization SURGEON: Los Fuller DO INDICATIONS: Patient, down in [place], had a Lexiscan stress test which was read as normal. The patient continues to have chest discomfort; therefore, we did a walking non-nuclear stress test. Completed 7 mets with EKG changes suggestive of ischemia. He was recommended to have a heart catheterization. [facility] CONSCIOUS SEDATION PROTOCOL: Patient was to have [...] proceed. Therefore, a consent form was signed. [facility] PATIENT NAME: SAKSHI KELLEY [address] [place] MEDICAL REC #: [id number] [place] [address] ADMIT DATE: 05/20/21 DISCHARGE DATE: 05/24/21 CARDIAC [...] underwent an insertion of a Cordis 6 [place]ican sheath over the guide without any difficulty and this was aspirated freely. LEFT VENTRICULAR HEMODYNAMICS: Left ventricular hemodynamics were done with pigtail 6 [place] catheter by [employer]. This was easily led into the left ventricular cavity. Left ventricular systolic blood pressure was noted 150/8 preop, 150/3 post LV-gram, 150/70 aorta. Therefore, there are no signs of diastolic dysfunction. Therefore, no signs of aortic stenosis. LEFT VENTRICULOGRAM: Left ventriculogram was done with the same pigtail 6 [place]ican [facility] PATIENT NAME: SAKSHI KELLEY [address] [place] MEDICAL REC #: [id number] [place] [address] ADMIT DATE: 05/20/21 DISCHARGE DATE: 05/24/21 CARDIAC [...] 99% stenosis prior to the 1st septal crossing tender. It had KRISTOFER-grade 2 flow noted. CIRCUMFLEX: The circumflex is wide open. Circumflex was noted to give off a very large obtuse marginal. Also gave collaterals to the distal RCA. RIGHT CORONARY ARTERY: Maintained with a Gilles catheter. It was 100% occluded with rccha-es-uyenj collaterals. Again competitive flow because it was being filled collaterals through the circumflex system. [facility] PATIENT NAME: SAKSHI KELLEY [address] [place] MEDICAL REC #: [id number] [place] [address] ADMIT DATE: 05/20/21 DISCHARGE DATE: 05/24/21 CARDIAC [...] anterior descending prior to the 1st septal crossing tender. 3. Normal circumflex. 4. A 100% right coronary artery being filled by nygr-ar-mfmuj collaterals. 5. Normal left ventricular function. In light of these findings, feel at this time patient needs bypass surgery. Will go ahead and make her a surgical interventional call. Los Fuller DO /[id number] (more content not included)... [facility] 10-30-2020 History of Past i llness Narrative Problem Noted Date Resolved Date Mixed hyperlipidemia 10/30/2020 06/08/2021 Hypertension 10/28/2021 documented as of this encounter (statuses as of 04/02/2022) [facility] History of Past illness Narrative* Problem Noted Date Resolved Date Mixed hyperlipidemia 10/30/2020 06/08/2021 Hypertension 10/28/2021 documented as of this encounter (statuses as of 02/01/2023) [facility] History of Past illness Narrative* Problem Noted Date Resolved Date Mixed hyperlipidemia 10/30/2020 06/08/2021 Hypertension 10/28/2021 documented as of this encounter (statuses as of 02/03/2023) [facility] History of Past illness Narrative* Problem Noted Date Resolved Date Mixed hyperlipidemia 10/30/2020 06/08/2021 Hypertension 10/28/2021 documented as of this encounter (statuses as of 02/25/2023) [facility] History of Past illness Narrative* Problem Noted Date Diagnosed Date Resolved Date Mixed hyperlipidemia 10/30/2020 021 Hypertension 10/28/2021 documented as of this encounter (statuses as of 08/22/2023) [facility] History of Past illness Narrative* Problem Noted Date Diagnosed Date Resolved Date Mixed hyperlipidemia 10/30/2020 021 Hypertension 10/28/2021 documented as of this encounter (statuses as of 02/15/2024) [facility] noteNo assessment information availableWGalion [facility] Work Phone: Evaluation note* Diagnosis Essential hypertension, benign- Primary Hyperlipidemia LDL goal <70 Other and unspecified hyperlipidemia Hx of CABG Postsurgical aortocoronary bypass status History of cardiovascular stress test Other specified personal history presenting hazards to health History of left heart catheterization Former smoker Personal history of tobacco use, presenting hazards to health Chest pain, unspecified type [facility]* Diagnosis Essential hypertension, benign- Primary History of stress test Other specified conditions influencing health status Hx of CABG Postsurgical aortocoronary bypass status History of left heart catheterization Former smoker Personal history of tobacco use, presenting hazards to health Vaping nicotine dependence, tobacco product Cigarette smoker Tobacco use disorder [facility]* Diagnosis Coronary artery disease involving chilkat coronary artery of chilkat heart without angina pectoris- Primary Hyperlipidemia LDL goal <70 Other and unspecified hyperlipidemia Essential hypertension, benign Hx of CABG Postsurgical aortocoronary bypass status History of left heart catheterization History of stress test Other specified conditions influencing health status Vaping nicotine dependence, tobacco product [facility] this [facility] Diagnostic Procedure Only (Routine) - Pending Review Specialty Diagnoses / Procedures Referred By Kari tilley Referred To Contact [facility] Diagnoses Chest pain, unspecified type Procedures NM CARDIAC PERF STRESS/EXERCISE MYOCARDIAL SPECT MULTIPLE STUDIES Los Fuller DO [address] [place] [id number] [facility] [address] [place] [address] Referral ID Status Reason Start Date Expiration Date Visits Requested Visits Authorized [id number] Pending Review Auto-Generat ed Referral 02/01/2023 02/28/2024 1 1 * Outpatient Procedure (Routine) - Pending Review Specialty Diagnoses / Procedures Referred By Contac t Referred To Contact [facility] Diagnoses Essential hypertension, benign Procedures ECG COMPLETE ECG ROUTINE ECG W/LEAST 12 LDS W/I&R Los Fuller DO [address] [address] [facility] [address] [address] Referral ID Status Reason Start Date Expiration Date Visits Requested Visits Authorized [id number] Pending Review Auto-Generat ed Referral 01/28/2023 01/28/2024 1 1 [facility] for referral (narrative)* Outpatient Procedure (Routine) - Pending Review Specialty Diagnoses / Procedures Referred By Contac t Referred To Contact [facility] Diagnoses Essential hypertension, benign Procedures ECG COMPLETE ECG ROUTINE ECG W/LEAST 12 LDS W/I&R Shana Farris APRN.CNP [address] [address] [facility] [address] [address] Referral ID Status Reason Start Date Expiration Date Visits Requested Visits Authorized [id number] Pending Review Auto-Generat ed Referral 02/15/2024 02/14/2025 1 1 [facility]No reason for referral information availableWGalion Hospital Work Phone: Summary Purpose Family History No Family History Records FoundNo Family History Records FoundNo Family History Records FoundNo Family History Records FoundNo Family History Records FoundNo Family History Records Found Advance Directives No Advanced Directives Records FoundNo Advanced Directives Records FoundNo Advanced Directives Records FoundNo Advanced Directives Records FoundNo Advanced Directives Records FoundNo Advanced Directives Records Found Chief Complaint and Reason for Visit Chief Complaint PAIN IN SHOULDER AND SPINE Chief Complaint Admit Date FASTING January 20, 2025 7:03am Additional Source Comments (unrecognized sect ion and content) No Status Records FoundNo Status Records FoundNo Status Records FoundNo Status Records FoundNo Status Records FoundNo Status Records Found INFORMATION SOURCE (unrecogn ized section and content) DATE CREATED AUTHOR 09/07/2020 [facility] ([place]) DATE CREATED AUTHOR AUTHOR'S ORGANIZ ATION 01/12/2022 [facility] DATE CREATED AUTHOR AUTHOR'S ORGANIZ ATION 02/26/2023 [facility] DATE CREATED AUTHOR AUTHOR'S ORGANIZ ATION 02/27/2023 [facility] DATE CREATED AUTHOR AUTHOR'S ORGANIZ ATION 02/19/2025 [facility] DATE CREATED AUTHOR AUTHOR'S ORGANIZ ATION 06/21/2025 [facility] Goals (unrecognized section and content) Goals may be documented in a n alternate sectionGoals may be documented in an alternate sectionGoals may be documented in an alternate sectionGoals may be documented in an alternate sectionGoals may be documented in an alternate sectionGoals may be documented in an alternate section Source Comments (unrecognize d section and content) In the event this informatio n is protected by the Federal Confidentiality of Alcohol and Drug Abuse Patient Records regulations: The Federal rules restrict any use of the information to criminally investigate or prosecute any alcohol or drug abuse patient.[facility] Health[facility] the event this information is protected by the Federal Confidentiality of Alcohol and Drug Abuse Patient Records regulations: The Federal rules restrict any use of the information to criminally investigate or prosecute any alcohol or drug abuse patient.[facility] HealthIn the event this information is protected by the Federal Confidentiality of Alcohol and Drug Abuse Patient Records regulations: The Federal rules restrict any use of the information to criminally investigate or prosecute any alcohol or drug abuse patient.[facility] HealthIn the event this information is protected by the Federal Confidentiality of Alcohol and Drug Abuse Patient Records regulations: The Federal rules restrict any use of the information to criminally investigate or prosecute any alcohol or drug abuse patient.[facility] HealthIn the event this information is protected by the Federal Confidentiality of Alcohol and Drug Abuse Patient Records regulations: The Federal rules restrict any use of the information to criminally investigate or prosecute any alcohol or drug abuse patient.[facility] HealthIn the event this information is protected by the Federal Confidentiality of Alcohol and Drug Abuse Patient Records regulations: The Federal rules restrict any use of the information to criminally investigate or prosecute any alcohol or drug abuse patient.[facility] Reason for Visit (unrecogniz ed section and content) Reason Comments Refill Request Reason Comments Established Patient Follow-Up Yearly fol low up Reason Comments PA for stress test Reason Comments Results Stress test Reason Comments Established Patient Follow-Up 1 year fol low up Reason Comments Established Patient Follow-Up 1 year fol low up, CAD Care Teams (unrecognized sec tion and content) Team Status: Active Member Role Status Dates Dr. 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 Dining Car Relationship Specialty Start Date End Date Melody Mary CNP [address] [place] [address] PCP - General Family Medicine 02/15/24 Team Status: Inactive Member Role Status Dates Melody Mary NP, SYSTEMS SOFTWARE DESIGNER-C Primary Care Provider Active Start: January 202024 End: January 20, 2025 Melody Mary NP, SYSTEMS SOFTWARE DESIGNER-C Attending Provider Active Start: December End: January 20, 2025 Melody Mary NP, SYSTEMS SOFTWARE DESIGNER-C Referring Provider Active Start: December End: January 20, 2025 FOR RECORDS PERTAINING TO PATIENTS WHO ARE [...] BE BASED ON THE PRIMARY CLINICAL RECORDS. [facility] [employer] [facility]. provides no warranty or guarantee of the accuracy or completeness of information in this document.
[2025-07-26 10:43] LABS: AST(SGOT) 83 U/L (<=37); Alanine Aminotransfer ALT/SGPT 129 U/L (<=46); Albumin, Serum 4.4 g/dL (3.5-5.0); Alkaline Phosphatase 56 U/L (40-129); Anion Gap 12 (5-15); BUN 19 mg/dL (4-19); BUN/Creat Ratio 21.0 RATIO (10-20); Calcium,Total 10.2 mg/dL (7.6-11.0); Carbon Dioxide 24.2 mmol/L (21.0-32.0); Chloride 105 mmol/L (98-108); Cholesterol 175 mg/dL (<=200); Globulin 3.1 g/dL (2.2-4.2); Glucose 188 mg/dL (70-99); Low Density Lipoprotein Calc. 80 mg/dL; PSA,Total - Annual Screen 0.27 ng/mL (0.02-4.00); Potassium 4.1 mmol/L (3.3-5.1); Triglycerides 221 mg/dL; Very Low Density Lipoprotein 44 mg/dL (5-40); cholesterol:hdl ratio screen 3.44
[2025-07-26 10:44] LABS: Creatinine, Urine (random) 102.00 mg/dL (39.00-259.00); Microalbumin,Random Urine 16.4 mg/L (<20 mg/L)
== END | disposition home or self-care (01) ==
LOC: MTLAB 07:23
PROVIDERS: PCP Nurse Practitioner Family; Referring Provider Nurse Practitioner Family; Visit Provider Nurse Practitioner Family
DX: Z12.5 Encounter for screening for malignant neoplasm of prostate (principal); E11.9 Type 2 diabetes mellitus without complications; E78.5 Hyperlipidemia, unspecified; I25.10 Atherosclerotic heart disease of native coronary artery without angina pectoris; I10 Essential (primary) hypertension; R79.89 Other specified abnormal findings of blood chemistry
CPT/HCPCS: 36415; 80053; 80061; 82043; 82570; 83036; 84153; G0103